=== PATIENT | female | born 1955 | race Caucasian/White ===

== ENCOUNTER 2017-03-23 11:33 | Emergency (ER) | payer MEDICARE, MEDICAID ==
[2017-03-23] MEDS: NS 0.9% 1000 ML* 2,000 ML IV ONE (13:13)
[2017-03-23 13:17] LABS: Hematocrit 43 % (35-47); Hemoglobin 14.4 g/dl (12.0-16.0); Mean Corpuscular HGB Conc 34 g/dl (31-36); Mean Corpuscular Hemoglobin 27 pg (27-31); Mean Corpuscular Volume 79 fL (80-97); Mean Platelet Volume 8 um3 (7.4-10.4); Red Blood Count 5.39 10^6/ul (4.0-5.4); Red Cell Distribution Width 14 % (10.5-15); White Blood Count 11.9 10^3/ul (3.5-10.8)
[2017-03-23 13:31] LABS: Albumin 4.1 g/dL (3.2-5.2); BUN/Creatinine Ratio 19.6 (8-20); C Reactive Protein 103.64 mg/L (< 5.00); Calcium 9.6 mg/dL (8.6-10.3); EGFR African American 70.9 (>60); EGFR Non-African American 55.1 (>60); Globulin 3.5 g/dL (2-4); Magnesium 1.9 mg/dL (1.9-2.7); Potassium 3.9 mmol/L (3.5-5.0); Total Bilirubin 0.6 mg/dL (0.2-1.0); Total Protein 7.6 g/dL (6.4-8.9)
--- NOTE | 2017-03-23 13:56 | RAD ---
Indication: Shortness of breath. 2 views of the chest including dual energy PA views demonstrate no mediastinal shift. Areas of normal size and configuration. Lung graham appear clear. When compared to previous exam of November 27, 2016 no significant change is noted. IMPRESSION: No active cardiopulmonary disease is noted.
[2017-03-23] MEDS ORDERED: Iohexol 350* (CONTRAST) 500 ML MDV IV ONE (13:58)
[2017-03-23] MEDS ORDERED: Iodixanol* (CONTRAST) 320 MG/ML 100 ML SDV IV ONE (14:00)
[2017-03-23 14:09] LABS: TSH (Thyroid Stimulating Horm) 1.05 mcIU/mL (0.34-5.60)
[2017-03-23 14:40] LABS: Urine Bilirubin Negative (Negative); Urine Glucose Negative (Negative); Urine Nitrite Negative (Negative)
--- NOTE | 2017-03-23 14:44 | RAD ---
Indication: Tachycardia, positive d-dimer. Contrast: Administered 96.4 ml of VISIPAQUE 320 mg/ml CTA of the chest was performed after IV contrast administration. Coronal and sagittal reconstructed images were obtained. The pulmonary arterial tree is well opacified. There are no filling defects present to suggest pulmonary embolus. The aorta demonstrates no evidence of aortic dissection. No aneurysmal dilatation of the aorta is noted. The inferior thyroid lobes demonstrates asymmetry of the thyroid gland with large left lobe. No definite mediastinal or hilar adenopathy is noted. Heart is of normal size without evidence of pericardial effusion. The trachea and major bronchi appear patent. The lung graham demonstrate no evidence of any focal nodules. No alveolar consolidation is noted. The visualized abdominal organs demonstrates a left adrenal mass which is low density measuring up to 3.0 cm. This is unchanged from 2014. This likely represents an adenoma. There is likely hepatic steatosis noted. IMPRESSION: NO DEFINITE EVIDENCE OF PULMONARY EMBOLI IS NOTED. NO PULMONARY NODULES ARE NOTED. LEFT ADRENAL MASS MEASURING UP TO 3.0 CM. 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
[2017-03-23 17:14] VITALS: BP 155/78
[2017-03-23] MEDS ORDERED: Amoxicillin/Clavulanate TAB* 875 MG PO ONE ×2 (17:16)
[2017-03-23] MEDS ORDERED: predniSONE TAB* 20 MG PO ONE (17:17)
--- NOTE | 2017-03-23 17:21 | ED ---
Nacho Pittman Billy, scribed for Lance Reed MD on 03/23/17 at 1247 . Influenza-Like Illness - HPI Summary HPI Summary: Patient is a 61 year-old female coming to [facility] for evaluation of right-sided earache, fatigue, and intermittent rapid palpitations for the last several days. She also reports shortness of breath with exertion. Denies any chest pain , calf pain/swelling, or wheezing. Denies any past medical history or family history of blood clots. Denies tobacco use or hormonal control use. - History of Current Complaint Chief Complaint: EDFluSymptoms Time Seen by Provider: 03/23/17 12:23 Hx Obtained From: Patient Onset/Duration: Gradual Onset, Lasting Days Severity: Moderate - Allergy/Home Medications Allergies/Adverse Reactions: Allergies Allergy/AdvReac Type Severity Reaction Status Date / Time Pregabalin [From Lyrica] Allergy syncope Verified 03/23/17 11:42 Propoxyphene Allergy itchiness Verified 03/23/17 11:42 [From Darvocet-N] PMH/Surg Hx/FS Hx/Imm Hx Endocrine/Hematology History: Reports: Hx Thyroid Disease, Other Endocrine/ Hematological Disorders - thalassemia Denies: Hx Diabetes Cardiovascular History: Reports: Hx Hypertension Denies: Hx Pacemaker/ICD Respiratory History: Reports: Hx Asthma History: Denies: Hx Renal Disease Sensory History: Denies: Hx Hearing Aid Psychiatric History: Denies: Hx Panic Disorder - Surgical History Surgery Procedure, Year, and Place: Infectious Disease History: No Infectious Disease History: Denies: Hx Clostridium Difficile, Hx Hepatitis, Hx Human Immunodeficiency Virus (HIV), Hx of Known/Suspected MRSA, Hx Shingles, Hx Tuberculosis, Traveled Outside the [place] in Last 30 Days - Social History Alcohol Use: None Substance Use Type: Reports: None, Prescribed Smoking Status (MU): Never Smoked Tobacco Review of Systems Positive: Fatigue. Negative: Fever Positive: Ear Ache. Negative: Nasal Discharge Positive: Palpitations. Negative: Chest Pain Positive: Shortness Of Breath Negative: Myalgia, Edema All Other Systems Reviewed And Are Negative: Yes Physical Exam Triage Information Reviewed: Yes Vital Signs On Initial Exam: Initial Vitals Temp Pulse Resp BP Pulse Ox 98.6 F 114 20 149/76 97 03/23/17 11:42 03/23/17 11:42 03/23/17 11:42 03/23/17 11:42 03/23/17 11:42 Vital Signs Reviewed: Yes Appearance: Positive: No Pain Distress, Ill-Appearing - Mild Skin: Positive: Warm, Skin Color Reflects Adequate Perfusion, Dry Head/Face: Positive: Normal Head/Face Inspection Eyes: Positive: EOMI, JOSE ENT: Positive: Other - Right ear canal with cerumen and drainage; she is tender with traction of the pinna and periauricular palpation. Neck: Positive: Supple, Nontender Respiratory/Lung Sounds: Positive: Clear to Auscultation, Breath Sounds Present Cardiovascular: Positive: Tachycardia Abdomen Description: Positive: Nontender, Soft Bowel Sounds: Positive: Present Musculoskeletal: Positive: Normal, Strength/ROM Intact, Other - Calves are soft and nontender.. Negative: Edema Left, Edema Right Neurological: Positive: Normal, Sensory/Motor Intact, Alert, Oriented to Person Place, Time Psychiatric: Positive: Affect/Mood Appropriate - Gibson Coma Scale Coma Scale Total: 15 Diagnostics - Vital Signs Vital Signs Temp Pulse Resp BP Pulse Ox 03/23/17 12:00 111 114/100 92 03/23/17 11:58 112 92 03/23/17 11:55 136/89 03/23/17 11:43 98.6 F 114 20 149/76 97 03/23/17 11:42 98.6 F 114 20 149/76 97 - Laboratory Lab Results: Lab Results 03/23/17 03/23/17 03/23/17 Range/Units 12:37 13:02 13:02 WBC 11.9 H (3.5-10.8) 10^3/ul RBC 5.39 (4.0-5.4) 10^6/ul Hgb 14.4 (12.0-16.0) g/dl Hct 43 (35-47) % MCV 79 L (80-97) fL MCH 27 (27-31) pg MCHC 34 (31-36) g/dl RDW 14 (10.5-15) % Plt Count 277 (150-450) 10^3/ul MPV 8 (7.4-10.4) um3 Neut % (Auto) 76.3 (38-83) % Lymph % (Auto) 17.0 L (25-47) % Duchesne % (Auto) 5.6 (1-9) % Eos % (Auto) 0.3 (0-6) % Baso % (Auto) 0.8 (0-2) % Absolute Neuts (auto) 9.1 H (1.5-7.7) 10^3/ul Absolute Lymphs (auto) 2.0 (1.0-4.8) 10^3/ul Absolute Monos (auto) 0.7 (0-0.8) 10^3/ul Absolute Eos (auto) 0 (0-0.6) 10^3/ul Absolute Basos (auto) 0.1 (0-0.2) 10^3/ul Absolute Nucleated RBC 0.01 10^3/ul Nucleated RBC % 0.1 INR (Anticoag Therapy) 0.97 (0.89-1.11) APTT 24.0 L (26.0-36.3) seconds D-Dimer, Quantitative > 1050 H (Less Than 230) ng/mL Sodium (133-145) mmol/L Potassium (3.5-5.0) mmol/L Chloride (101-111) mmol/L Carbon Dioxide (22-32) mmol/L Anion Gap (2-11) mmol/L BUN (6-24) mg/dL Creatinine (0.51-0.95) mg/dL Est GFR ( Amer) (>60) Est GFR (Non-Af Amer) (>60) BUN/Creatinine Ratio (8-20) Glucose (70-100) mg/dL Lactic Acid (0.5-2.0) mmol/L Calcium (8.6-10.3) mg/dL Magnesium (1.9-2.7) mg/dL Total Bilirubin (0.2-1.0) mg/dL AST (13-39) U/L ALT (7-52) U/L Alkaline Phosphatase (34-104) U/L Total Creatine Kinase (10-223) U/L CK-MB (CK-2) (0.6-6.3) ng/mL Troponin I (<0.04) ng/mL C-Reactive Protein (< 5.00) mg/L B-Natriuretic Peptide ( - 100) pg/mL Total Protein (6.4-8.9) g/dL Albumin (3.2-5.2) g/dL Globulin (2-4) g/dL Albumin/Globulin Ratio (1-3) Lipase (11.0-82.0) U/L TSH (0.34-5.60) mcIU/mL Urine Color Urine Appearance Urine pH (5-9) Ur Specific Chandler (1.010-1.030) Urine Protein (Negative) Urine Ketones (Negative) Urine Blood (Negative) Urine Nitrate (Negative) Urine Bilirubin (Negative) Urine Urobilinogen (Negative) Ur Leukocyte Esterase (Negative) Urine Glucose (Negative) Influenza A (Rapid) Negative (Negative) Influenza B (Rapid) Negative (Negative) Group A Strep Rapid (Negative) 03/23/17 03/23/17 03/23/17 Range/Units 13:02 13:02 13:02 WBC (3.5-10.8) 10^3/ul RBC (4.0-5.4) 10^6/ul Hgb (12.0-16.0) g/dl Hct (35-47) % MCV (80-97) fL MCH (27-31) pg MCHC (31-36) g/dl RDW (10.5-15) % Plt Count (150-450) 10^3/ul MPV (7.4-10.4) um3 Neut % (Auto) (38-83) % Lymph % (Auto) (25-47) % Duchesne % (Auto) (1-9) % Eos % (Auto) (0-6) % Baso % (Auto) (0-2) % Absolute Neuts (auto) (1.5-7.7) 10^3/ul Absolute Lymphs (auto) (1.0-4.8) 10^3/ul Absolute Monos (auto) (0-0.8) 10^3/ul Absolute Eos (auto) (0-0.6) 10^3/ul Absolute Basos (auto) (0-0.2) 10^3/ul Absolute Nucleated RBC 10^3/ul Nucleated RBC % INR (Anticoag Therapy) (0.89-1.11) APTT (26.0-36.3) seconds D-Dimer, Quantitative (Less Than 230) ng/mL Sodium 135 (133-145) mmol/L Potassium 3.9 (3.5-5.0) mmol/L Chloride 98 L (101-111) mmol/L Carbon Dioxide 27 (22-32) mmol/L Anion Gap 10 (2-11) mmol/L BUN 20 (6-24) mg/dL Creatinine 1.02 H (0.51-0.95) mg/dL Est GFR ( Amer) 70.9 (>60) Est GFR (Non-Af Amer) 55.1 (>60) BUN/Creatinine Ratio 19.6 (8-20) Glucose 212 H (70-100) mg/dL Lactic Acid 2.0 (0.5-2.0) mmol/L Calcium 9.6 (8.6-10.3) mg/dL Magnesium 1.9 (1.9-2.7) mg/dL Total Bilirubin 0.60 (0.2-1.0) mg/dL AST 15 (13-39) U/L ALT 18 (7-52) U/L Alkaline Phosphatase 82 (34-104) U/L Total Creatine Kinase 52 (10-223) U/L CK-MB (CK-2) 0.8 (0.6-6.3) ng/mL Troponin I 0.00 (<0.04) ng/mL C-Reactive Protein 103.64 H (< 5.00) mg/L B-Natriuretic Peptide 26 ( - 100) pg/mL Total Protein 7.6 (6.4-8.9) g/dL Albumin 4.1 (3.2-5.2) g/dL Globulin 3.5 (2-4) g/dL Albumin/Globulin Ratio 1.2 (1-3) Lipase 30 (11.0-82.0) U/L TSH 1.05 (0.34-5.60) mcIU/mL Urine Color Urine Appearance Urine pH (5-9) Ur Specific Chandler (1.010-1.030) Urine Protein (Negative) Urine Ketones (Negative) Urine Blood (Negative) Urine Nitrate (Negative) Urine Bilirubin (Negative) Urine Urobilinogen (Negative) Ur Leukocyte Esterase (Negative) Urine Glucose (Negative) Influenza A (Rapid) (Negative) Influenza B (Rapid) (Negative) Group A Strep Rapid (Negative) 03/23/17 03/23/17 Range/Units 14:30 16:04 WBC (3.5-10.8) 10^3/ul RBC (4.0-5.4) 10^6/ul Hgb (12.0-16.0) g/dl Hct (35-47) % MCV (80-97) fL MCH (27-31) pg MCHC (31-36) g/dl RDW (10.5-15) % Plt Count (150-450) 10^3/ul MPV (7.4-10.4) um3 Neut % (Auto) (38-83) % Lymph % (Auto) (25-47) % Duchesne % (Auto) (1-9) % Eos % (Auto) (0-6) % Baso % (Auto) (0-2) % Absolute Neuts (auto) (1.5-7.7) 10^3/ul Absolute Lymphs (auto) (1.0-4.8) 10^3/ul Absolute Monos (auto) (0-0.8) 10^3/ul Absolute Eos (auto) (0-0.6) 10^3/ul Absolute Basos (auto) (0-0.2) 10^3/ul Absolute Nucleated RBC 10^3/ul Nucleated RBC % INR (Anticoag Therapy) (0.89-1.11) APTT (26.0-36.3) seconds D-Dimer, Quantitative (Less Than 230) ng/mL Sodium (133-145) mmol/L Potassium (3.5-5.0) mmol/L Chloride (101-111) mmol/L Carbon Dioxide (22-32) mmol/L Anion Gap (2-11) mmol/L BUN (6-24) mg/dL Creatinine (0.51-0.95) mg/dL Est GFR ( Amer) (>60) Est GFR (Non-Af Amer) (>60) BUN/Creatinine Ratio (8-20) Glucose (70-100) mg/dL Lactic Acid (0.5-2.0) mmol/L Calcium (8.6-10.3) mg/dL Magnesium (1.9-2.7) mg/dL Total Bilirubin (0.2-1.0) mg/dL AST (13-39) U/L ALT (7-52) U/L Alkaline Phosphatase (34-104) U/L Total Creatine Kinase (10-223) U/L CK-MB (CK-2) (0.6-6.3) ng/mL Troponin I (<0.04) ng/mL C-Reactive Protein (< 5.00) mg/L B-Natriuretic Peptide ( - 100) pg/mL Total Protein (6.4-8.9) g/dL Albumin (3.2-5.2) g/dL Globulin (2-4) g/dL Albumin/Globulin Ratio (1-3) Lipase (11.0-82.0) U/L TSH (0.34-5.60) mcIU/mL Urine Color Yellow Urine Appearance Clear Urine pH 5.0 (5-9) Ur Specific Chandler 1.041 H (1.010-1.030) Urine Protein Negative (Negative) Urine Ketones Negative (Negative) Urine Blood Negative (Negative) Urine Nitrate Negative (Negative) Urine Bilirubin Negative (Negative) Urine Urobilinogen Negative (Negative) Ur Leukocyte Esterase Negative (Negative) Urine Glucose Negative (Negative) Influenza A (Rapid) (Negative) Influenza B (Rapid) (Negative) Group A Strep Rapid Negative (Negative) Result Diagrams: 03/23/17 13:02 03/23/17 13:02 Lab Statement: Any lab studies that have been ordered have been reviewed, and results considered in the medical decision making process. - Radiology CXR Xray Interpretation: No Acute Changes Radiology Interpretation Completed By: Radiologist - CT CTA chest/thorax CT Interpretation Completed By: Radiologist - NO DEFINITE EVIDENCE OF PULMONARY EMBOLI IS NOTED. NO PULMONARY NODULES ARE NOTED. LEFT ADRENAL MASS MEASURING UP TO 3.0 CM. 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 - EKG 1340 Cardiac Rate: Tachycardia - 100 bpm EKG Rhythm: Sinus Tachycardia ST Segment: Normal Ectopy: None Re-Evaluation - Re-Evaluation First Eval Re-Evaluation Time: 17:07 Comment: Labs reviewed. Flu Symptom Course/Dx - Course Course Of Treatment: NO CRITICAL CARE TIME Assessment/Plan: DISCUSSED RESULTS WITH PATIENT. NO PEDAL EDEMA/CALF TENDERNESS. DISCHARGE HOME STABLE. - Diagnoses Provider Diagnoses: External otitis of right ear, Asthma Discharge - Discharge Plan Condition: Stable Disposition: HOME Prescriptions: Amoxicillin/Clavulanate TAB* [Augmentin TAB 875*] 875 mg PO BID #18 tab predniSONE TAB* [Deltasone TAB*] 40 mg PO DAILY #8 tab Patient Education Materials: Otitis Externa (ED), Asthma (ED) Referrals: Brendan Yin MD [Primary Care Provider] - Additional Instructions: FOLLOW UP WITH YOUR DOCTOR. RETURN TO THE EMERGENCY DEPARTMENT FOR ANY WORSENING OF YOUR CONDITION; SHORTNESS OF BREATH, YOU FEEL ILL OR QUESTIONS OR CONCERNS. The documentation as recorded by the Nacho molina Billy accurately reflects the service I personally performed and the decisions made by me, Lance Reed MD.
[2017-03-23] MEDS ORDERED: Neomyc/Polym/HC 1% OTIC SUSP* **OTIC RIGHT EAR SCH (21:00)
== END 2017-03-23 17:36 | disposition home or self-care (01) ==
LOC: ED 11:33
DX: H60.91 Unspecified otitis externa, right ear (principal); J45.909 Unspecified asthma, uncomplicated; I10 Essential (primary) hypertension; D56.9 Thalassemia, unspecified
CPT/HCPCS: 36415; 71020; 71275; 80053; 81003; 82550; 82553; 83605; 83690; 83735; 83880; 84443; 84484; 85025; 85379; 85610; 85730; 86140; 87502; 87651; 96360; 99283; A9270-GY; J7512; Q9967

== ENCOUNTER 2017-07-30 19:39 | Inpatient (IN) | payer MEDICARE, MEDICAID ==
[2017-07-30] MEDS ORDERED: Aspirin Low Dose CHEW TAB* 81 MG PO ONE (20:18)
[2017-07-30 20:50] LABS: Hematocrit 42 % (35-47); Hemoglobin 14.4 g/dl (12.0-16.0); Mean Corpuscular HGB Conc 34 g/dl (31-36); Mean Corpuscular Hemoglobin 27 pg (27-31); Mean Corpuscular Volume 79 fL (80-97); Mean Platelet Volume 8 um3 (7.4-10.4); Red Blood Count 5.31 10^6/ul (4.0-5.4); Red Cell Distribution Width 15 % (10.5-15); White Blood Count 10.4 10^3/ul (3.5-10.8)
[2017-07-30 21:08] LABS: Albumin 4.2 g/dL (3.2-5.2); BUN/Creatinine Ratio 15.8 (8-20); Calcium 10.1 mg/dL (8.6-10.3); EGFR African American 62.1 (>60); EGFR Non-African American 48.3 (>60); Globulin 3.2 g/dL (2-4); Magnesium 1.8 mg/dL (1.9-2.7); Potassium 3.8 mmol/L (3.5-5.0); Total Bilirubin 0.6 mg/dL (0.2-1.0); Total Protein 7.4 g/dL (6.4-8.9)
--- NOTE | 2017-07-30 21:11 | RAD ---
Indication: Chest pain. Single frontal view of the chest performed at 2025 hours was reviewed. Comparison is made with previous exam dated March 23, 2017. No mediastinal shift is noted. Heart is of normal size and configuration. Lung graham appear clear. IMPRESSION: NO ACTIVE CARDIOPULMONARY DISEASE IS NOTED.
[2017-07-30] MEDS ORDERED: Ondansetron INJ* 2 MG/ML VIAL IV ONE (22:17)
[2017-07-30] MEDS ORDERED: Dextrose 50% Syringe 50 ML* 25 GM/50 ML SYRINGE IV PUSH PRN (23:27)
--- NOTE | 2017-07-30 23:35 | ED ---
Alma Pittman Rebecca, scribed for Robert Urrutia on 07/30/17 at 202 . HPI Chest Pain - HPI Summary HPI Summary: Pt is a 62 y/o F who presents to ED c/o CP. Pain began at 1800 today and is currently severe, ranked 10/10 and radiates to the back. Sx aggravated by ambulation, alleviated by nothing. Additionally c/o mild abdominal pain, N/V and SOB. Reports a recent increase in stress. Failed stress test in 2011 and had a negative cardiac catheterization in the same year. FHx CAD. - History of Current Complaint Chief Complaint: EDChestPainROMI Time Seen by Provider: 07/30/17 20:03 Hx Obtained From: Patient Onset/Duration: Still Present Time of Onset: 18:00 Current Severity: Severe Pain Intensity: 10 Pain Scale Used: 0-10 Numeric Chest Pain Radiates: Yes Chest Pain Radiates To:: Back Aggravating Factor(s): Other: - Ambulation Alleviating Factor(s): Nothing Associated Signs and Symptoms: Positive: Shortness of Breath, Nausea, Abdominal Pain - mild, Vomiting - Allergy/Home Medications Allergies/Adverse Reactions: Allergies Allergy/AdvReac Type Severity Reaction Status Date / Time Pregabalin [From Lyrica] Allergy syncope Verified 03/23/17 11:42 Propoxyphene Allergy itchiness Verified 03/23/17 11:42 [From Darvocet-N] PMH/Surg Hx/FS Hx/Imm Hx Endocrine/Hematology History: Reports: Hx Thyroid Disease, Other Endocrine/ Hematological Disorders - thalassemia Denies: Hx Diabetes Cardiovascular History: Reports: Hx Hypertension Denies: Hx Pacemaker/ICD Respiratory History: Reports: Hx Asthma History: Denies: Hx Renal Disease Sensory History: Denies: Hx Hearing Aid Psychiatric History: Denies: Hx Panic Disorder - Surgical History Surgery Procedure, Year, and Place: Infectious Disease History: No Infectious Disease History: Denies: Hx Clostridium Difficile, Hx Hepatitis, Hx Human Immunodeficiency Virus (HIV), Hx of Known/Suspected MRSA, Hx Shingles, Hx Tuberculosis, Traveled Outside the [place] in Last 30 Days - Family History Known Family History: Positive: Cardiac Disease - Social History Alcohol Use: None Substance Use Type: Reports: None, Prescribed Smoking Status (MU): Never Smoked Tobacco Review of Systems Positive: Chest Pain Positive: Shortness Of Breath Positive: Abdominal Pain - mild, Vomiting, Nausea All Other Systems Reviewed And Are Negative: Yes Physical Exam - Summary Physical Exam Summary: Appearance: Well appearing, no pain distress Skin: warm, dry, reflects adequate perfusion Head/face: normal Eyes: EOMI, JOSE ENT: normal Neck: supple, nontender Respiratory: CTA, breath sounds present Cardiovascular: RRR, pulses symmetrical Abdomen: nontender, soft Bowel: present Musculoskeletal: normal, strength/ROM intact Neuro: normal, sensory motor intact, A&Ox3 Triage Information Reviewed: Yes Vital Signs On Initial Exam: Initial Vitals Temp Pulse Resp BP Pulse Ox 98 F 82 21 158/108 95 07/30/17 19:58 07/30/17 19:58 07/30/17 19:58 07/30/17 19:58 07/30/17 19:58 Vital Signs Reviewed: Yes - Gibson Coma Scale Coma Scale Total: 15 Diagnostics - Vital Signs Vital Signs Temp Pulse Resp BP Pulse Ox 07/30/17 19:58 98 F 82 21 158/108 95 - Laboratory Result Diagrams: 07/30/17 20:43 07/30/17 20:43 Lab Statement: Any lab studies that have been ordered have been reviewed, and results considered in the medical decision making process. - Radiology CXR Xray Interpretation: No Acute Changes - NO ACTIVE CARDIOPULMONARY DISEASE IS NOTED. ED physician reviewed this radiology report and agrees. Radiology Interpretation Completed By: Radiologist - EKG 1946 Cardiac Rate: NL - bpm EKG Rhythm: Sinus Rhythm EKG Interpretation: No acute changes Chest Pain Course/Dx - Course Assessment/Plan: Pt is a 62 y/o F who presents to ED c/o CP. Pain began at 1800 today and is currently severe, ranked 10/10 and radiates to the back. Sx aggravated by ambulation, alleviated by nothing. Additionally c/o mild abdominal pain, N/V and SOB. Reports a recent increase in stress. Failed stress test in 2011 and had a negative cardiac catheterization in the same year. FHx CAD. CXR has no acute pathology. EKG is sinus rhythm with no acute changes. Troponin of 0.00. In the ED course, pt received ASA and Zofran. Discussed care of pt with Dr. Tan who acccepts pt for admission. She will be admitted with Dx of chest pain, r/o IL. She understands and agrees. Elevated BP noted and advised to f/u with PCP. - Diagnoses Provider Diagnoses: Chest pain, rule out acute myocardial infarction - Provider Notifications Discussed Care Of Patient With: Hector Tan Time Discussed With Above Provider: 22:12 Instructed by Provider To: Other - Accepts pt for admission Discharge - Discharge Plan Condition: Stable Disposition: ADMITTED TO [facility] The documentation as recorded by the Alma molina Rebecca accurately reflects the service I personally performed and the decisions made by , Robert Urrutia.
[2017-07-31] MEDS: Insulin LISPRO* 1 UNITS UNIT SUBCUT SCH ×4 (01:57→19:41)
--- NOTE | 2017-07-31 02:07 | HP ---
CC: Dr. Yin * HISTORY AND PHYSICAL: DATE OF ADMISSION: 07/30/17 CHIEF COMPLAINT: Chest, abdominal, and back pain. HISTORY OF PRESENT ILLNESS: The patient is a 62-year-old woman who presents to [facility] with a chief complaint at about 6 p.m. today after she got home and was not exerting herself, she suddenly developed pain in her chest , abdomen, and her back. The patient states again it was right-sided chest pain and it went down to her stomach and her back. She feels her chest is much better now, back still hurts somewhat as does her abdomen. It was 10/10 in severity. She got medicine for upset stomach, but she does not know what it was , which seemed to help her. She had some nausea, vomiting, but no shortness of breath, some questionable sweatiness or clamminess. She states it is a sharp pain. She usually takes a hot shower and it gets better, but she did not have that at this time. She has no black or tarry stools. When she vomited, she does have some clear liquid come up. Again, she currently feels significantly improved. She had a cardiac catheterization back in 2011, which was apparently unremarkable. PAST MEDICAL HISTORY: Significant for diabetes mellitus, hypothyroidism, hypertension, hyperlipidemia. CURRENT MEDICATIONS: Include: 1. Metformin 500 mg twice daily. 2. Synthroid 100 mcg daily. 3. Lisinopril 20/25 one tablet daily. 4. Simvastatin 20 mg daily. 5. Multivitamin 1 tablet daily. 6. Vitamin D unknown dose daily. 7. Vitamin B12 unknown dose daily. ALLERGIES: She has an allergy/adverse reaction to PREGABALIN, PROPOXYPHENE. FAMILY HISTORY: Reviewed, noncontributory. SOCIAL HISTORY: No tobacco, alcohol, or recreational drug use. She is on disability. She is not . She has 4 children. No healthcare proxy. REVIEW OF SYSTEMS: A 14-point review of systems was completed with the patient. All pertinent positives and negatives are in the history of present illness, otherwise it is negative. PHYSICAL EXAMINATION GENERAL: A morbidly obese woman, sitting up in bed, in no acute distress. VITAL SIGNS: Blood pressure is 118/92, pulse ox 91%, respiratory rate 18 breaths per minute, heart rate 86 beats a minute, temperature 98 degrees. HEENT: Normocephalic and atraumatic. Pupils are equal, round, and reactive to light. Moist mucous membranes. NECK: Supple. No JVD, bruits, or palpable thyroid or lymphadenopathy. CHEST: Clear to auscultation and percussion bilaterally. CARDIOVASCULAR: S1, S2 appreciated. Regular rate and rhythm. ABDOMINAL EXAM: Morbidly obese, positive bowel sounds in all 4 quadrants. Soft , nontender, nondistended. No hepatosplenomegaly. EXTREMITIES: No cyanosis or clubbing. She does have some bilateral edema. NEURO: She is alert and oriented x3. Moves all extremities. SKIN: No rashes or abnormalities. DIAGNOSTIC STUDIES/LAB DATA: White count 10.4, hemoglobin 14.4, hematocrit 42 , platelets are 240. Sodium 137, potassium 3.8, chloride 99, CO2 29, BUN 18, creatinine 1.14, glucose is 182. INR is 0.89. D-dimer is 254. Her troponin was 0.00. EKG shows normal sinus rhythm, 85 beats per minute, she has got normal axis. She has got Q in lead III, no ST or T-wave changes. Chest x-ray shows no active cardiopulmonary disease is noted. ASSESSMENT AND PLAN: 1. Chest pain, abdominal pain, back pain. It is a strange constellation of findings. It is also reproducible on exam when I pressed on it. I hardly think this is cardiac. The patient already feels improved. I will cycle her troponins. I will get a nuclear stress test for the morning, but I think it is likely the patient can be discharged as early as tomorrow morning after the stress test. 2. Diabetes mellitus. Continue fingersticks with sliding scale insulin, check hemoglobin A1c. 3. Hyperlipidemia, continue statin, check lipid level in the morning. 4. Hypothyroidism, stable, continue Synthroid. 5. Morbid obesity. Encouraged weight loss. 6. DVT prophylaxis. Heparin subcu. 7. FEN. NPO after midnight. 8. The patient is full code. TIME SPENT: Over 75 minutes were spent on this H and P, more than 40 minutes of which was spent in direct [id number] contact with the patient in evaluation , physical exam, and counseling and coordination of care. [id number]/[facility] #: [id number] MTDD
[2017-07-31 03:47] LABS: HDL Cholesterol 42.1 mg/dL
[2017-07-31] MEDS: Heparin VIAL(*) 5000 UNITS/ML VIAL (FIVE THOUSAND) SUBCUT SCH ×2 (06:16→15:52)
[2017-07-31] MEDS: Omeprazole CAP* 20 MG PO SCH (06:16)
[2017-07-31] MEDS: Levothyroxine TAB* 100 MCG TAB PO SCH (06:17)
[2017-07-31] MEDS ORDERED: Regadenoson* 0.4 MG/5 ML SYRINGE ONE (08:25)
[2017-07-31] MEDS ORDERED: Aminophylline IV* 25 MG/ML 10 ML VIAL ONE (08:25)
[2017-07-31] MEDS ORDERED: Acetaminophen TAB* 325 MG ONE (09:28)
[2017-07-31] MEDS ORDERED: Ondansetron INJ* 2 MG/ML VIAL ONE ×2 (09:28→12:38)
[2017-07-31] MEDS: Ondansetron INJ* 2 MG/ML VIAL IV PRN (09:32)
[2017-07-31] MEDS: Acetaminophen TAB* 325 MG PO PRN ×2 (09:32→20:04)
[2017-07-31] MEDS: Lisinopril TAB* 10 MG PO SCH (13:45)
[2017-07-31] MEDS: Hydrochlorothiazide TAB* 25 MG PO SCH (13:45)
[2017-07-31] MEDS: Multivitamins/Minerals TAB PO SCH ×2 (13:46)
--- NOTE | 2017-07-31 13:59 | RAD ---
HISTORY: Chest pain, cardiac catheterization, diabetes, hypertension, hyperlipidemia COMPARISONS: June 28, 2012 TECHNIQUE: A 1 day stress/rest myocardial perfusion study was performed, with pharmacologic stress. The stress portion was monitored by Dr. Barriga. Gated SPECT imaging was performed, without CT-based attenuation correction DOSE: Stress: Technetium 99m tetrofosmin, 25.39 millicuries, injected at 12:29 PM on July 31, 2017 Rest: Technetium 99m tetrofosmin, 10.4 millicuries, injected at 9:40 AM on July 31, 2017 Pharmacologic agent: Lexiscan FINDINGS: CARDIAC MONITORING: No EKG changes of ischemia with stress EF: 70 % TID: 0.96 MOTION: Normal motion, with normal wall thickening. PERFUSION: There is a small to moderate partially reversible defect of the distal anterior wall. OTHER: None IMPRESSION: SMALL TO MODERATE PARTIALLY REVERSIBLE DEFECT OF THE DISTAL ANTERIOR WALL ASSESSMENT: INTERMEDIATE RISK. Based on imaging criteria from ACC/AHA 2002. Guideline Update for the Management of Patient's with Chronic Stable Angina, table 23. Noninvasive Risk Stratification.
[2017-07-31] MEDS ORDERED: NS 0.9% 500 ML BAG* 500 ML IV ONE (15:55)
--- NOTE | 2017-07-31 15:57 | PN ---
Subjective Date of Service: 07/31/17 Interval History: Patient seen after NST. Reports chest, abdomen and back pain resolved. Still feeling very nauseous, had emesis prior to stress test. Reports having a very stressful day yesterday when all her symptoms began. Family History: Unchanged from Admission Social History: Unchanged from Admission Past Medical History: Unchanged from Admission Objective Active Medications: Acetaminophen (Tylenol Tab*) 650 mg PO Q6H PRN Aspirin (Aspirin Ec Low Dose*) 81 mg PO DAILY SUSAN Atorvastatin Calcium (Lipitor*) 10 mg PO BEDTIME SUSAN Dextrose (D50w Syringe 50 Ml*) 12.5 gm IV PUSH .FOR FS < 60 - SS PRN Heparin Sodium (Porcine) (Heparin Vial(*)) 5,000 units SUBCUT Q8HR SUSAN Hydrochlorothiazide (Hydrodiuril Tab*) 25 mg PO DAILY SUSAN Insulin Human Lispro (Humalog*) 0 units SUBCUT Q6HR SUSAN Levothyroxine Sodium (Synthroid Tab*) 100 mcg PO DAILY@0600 SUSAN Lisinopril (Prinivil Tab*) 20 mg PO DAILY SUSAN Multivitamins/Minerals (Theragran/Minerals Tab*) 1 tab PO DAILY SUSAN Omeprazole (Prilosec Cap*) 20 mg PO 0600 SUSAN Ondansetron HCl (Zofran Inj*) 4 mg IV Q6H PRN Vital Signs 07/31/17 07/31/17 07/31/17 00:00 00:12 00:55 Temperature 99.3 F Pulse Rate 86 84 82 Respiratory 25 22 18 Rate Blood Pressure 156/86 143/84 (mmHg) O2 Sat by Pulse 92 91 100 Oximetry 07/31/17 07/31/17 07/31/17 00:59 03:50 08:00 Temperature 99.3 F 99.8 F Pulse Rate 82 100 Respiratory 18 20 20 Rate Blood Pressure 143/84 128/72 (mmHg) O2 Sat by Pulse 100 94 Oximetry 07/31/17 07/31/17 08:07 13:34 Temperature 99.3 F 97.9 F Pulse Rate 90 84 Respiratory 20 18 Rate Blood Pressure 130/73 107/66 (mmHg) O2 Sat by Pulse 96 95 Oximetry Oxygen Devices in Use Now: None Appearance: Middle-aged, obese, F, laying in bed in NAD Eyes: No Scleral Icterus Ears/Nose/Mouth/Throat: Mucous Membranes Moist Neck: NL Appearance and Movements; NL JVP Respiratory: Symmetrical Chest Expansion and Respiratory Effort, Clear to Auscultation Cardiovascular: NL Sounds; No Murmurs; No JVD, RRR Abdominal: - - Obese, soft, non-distended, mild epigastric tenderness, BS+ Lymphatic: No Cervical Adenopathy Extremities: No Edema Skin: No Rash or Ulcers Neurological: Alert and Oriented x 3 Result Diagrams: 07/30/17 20:43 07/30/17 20:43 Assess/Plan/Problems-Billing Assessment: Chest pain, N/V, possible viral infection in a 62 yo F with hx of HTN, HLD, DM, morbid obesity - Patient Problems (1) Chest pain Current Visit: Yes Comment: back pain, abdominal pain. Resolved. Troponins negative. NST with what appears to be reversible area in anterior wall, on review had similar finding on prior NST with subsequent normal cath. Spoke with Dr. Gordon who compared the two studies and saw no new changes, felt this may be breast artifact. Unlikely to be cardiac cause. ASA and statin for primary prevention. (2) Nausea & vomiting Current Visit: Yes Comment: Possible gastroenteritis, ?stress-related. Continue anti-emetics. Will trial clear liquids. IVF. If unable to keep down liquids will continue to monitor overnight. (3) Diabetes Current Visit: Yes Comment: HISS (4) HTN (hypertension) Current Visit: Yes Comment: Continue home Lisinopril, HCTZ (5) HLD (hyperlipidemia) Current Visit: Yes Comment: Continue Atorvastatin (6) Hypothyroidism Current Visit: Yes Comment: Continue home synthroid (7) DVT prophylaxis Current Visit: Yes Comment: HSQ Status and Disposition: Will switch to inpatient if unable to keep down fluids or continues to have significant nausea
[2017-07-31] MEDS: Atorvastatin* 10 MG TAB PO SCH (20:04)
[2017-07-31] MEDS: NS 0.9% 1000 ML* 1,000 ML IV SCH (20:59)
[2017-08-01] MEDS: Heparin VIAL(*) 5000 UNITS/ML VIAL (FIVE THOUSAND) SUBCUT SCH ×4 (00:01→20:15)
[2017-08-01] MEDS: Insulin LISPRO* 1 UNITS UNIT SUBCUT SCH ×5 (00:54→23:40)
[2017-08-01] MEDS: Acetaminophen TAB* 325 MG PO PRN ×3 (00:58→20:14)
[2017-08-01] MEDS: Omeprazole CAP* 20 MG PO SCH (07:15)
[2017-08-01] MEDS: Levothyroxine TAB* 100 MCG TAB PO SCH (07:15)
[2017-08-01] MEDS ORDERED: Influenza VAC *QUAD* 2017-18* 0.5 ML SYRINGE IM ONE (09:00)
[2017-08-01] MEDS ORDERED: Pneumococcal *Vac Polyvalent 0.5 ML VIAL IM ONE (09:00)
[2017-08-01] MEDS: NS 0.9% 1000 ML* 1,000 ML IV SCH (09:02)
[2017-08-01] MEDS: Hydrochlorothiazide TAB* 25 MG PO SCH (09:08)
[2017-08-01] MEDS: Aspirin EC Low Dose* 81 MG TAB.EC PO SCH (09:08)
[2017-08-01] MEDS: Lisinopril TAB* 10 MG PO SCH (09:08)
[2017-08-01] MEDS: Multivitamins/Minerals TAB PO SCH (09:08)
--- NOTE | 2017-08-01 10:32 | PN ---
Subjective Date of Service: 08/01/17 Interval History: Patient seen this morning. Reportedly was doing well earlier this morning. Still with some nausea but no vomiting. Just prior to my arrival patient began to experience shaking chills, states this is the first time this has happened. Denies any pain, reports some SOB. Family History: Unchanged from Admission Social History: Unchanged from Admission Past Medical History: Unchanged from Admission Objective Active Medications: Acetaminophen (Tylenol Tab*) 650 mg PO Q4H PRN Aspirin (Aspirin Ec Low Dose*) 81 mg PO DAILY SUSAN Atorvastatin Calcium (Lipitor*) 10 mg PO BEDTIME SUSAN Dextrose (D50w Syringe 50 Ml*) 12.5 gm IV PUSH .FOR FS < 60 - SS PRN Heparin Sodium (Porcine) (Heparin Vial(*)) 5,000 units SUBCUT Q8HR SUSAN Hydrochlorothiazide (Hydrodiuril Tab*) 25 mg PO DAILY SUSAN Sodium Chloride (Ns 0.9% 1000 Ml*) 1,000 mls @ 100 mls/hr IV PER RATE SUSAN Insulin Human Lispro (Humalog*) 0 units SUBCUT Q6HR SUSAN Levothyroxine Sodium (Synthroid Tab*) 100 mcg PO DAILY@0600 SUSAN Lisinopril (Prinivil Tab*) 20 mg PO DAILY SUSAN Multivitamins/Minerals (Theragran/Minerals Tab*) 1 tab PO DAILY SUSAN Omeprazole (Prilosec Cap*) 20 mg PO 0600 SUSAN Ondansetron HCl (Zofran Inj*) 4 mg IV Q6H PRN Vital Signs 07/31/17 08/01/17 08/01/17 19:58 07:57 08:00 Temperature 99.3 F 98.5 F Pulse Rate 91 91 Respiratory 20 22 20 Rate Blood Pressure 145/86 129/74 (mmHg) O2 Sat by Pulse 94 97 Oximetry Oxygen Devices in Use Now: None Appearance: Middle-aged, F, laying in bed with rigors Eyes: No Scleral Icterus Ears/Nose/Mouth/Throat: Mucous Membranes Moist Neck: NL Appearance and Movements; NL JVP Respiratory: - - Mild tachypnea, lungs clear, no wheezing appreciated Cardiovascular: NL Sounds; No Murmurs; No JVD, RRR Abdominal: NL Sounds; No Tenderness; No Distention Lymphatic: No Cervical Adenopathy Extremities: No Edema Skin: - - Some mild mottling Neurological: Alert and Oriented x 3 Result Diagrams: 07/30/17 20:43 07/30/17 20:43 Assess/Plan/Problems-Billing Assessment: Chest pain, N/V, possible viral vs bacterial infection in a 62 yo F with hx of HTN, HLD, DM, morbid obesity - Patient Problems (1) Rigors Current Visit: Yes Comment: Just began this AM. Will get stat BCx, CBC, CMP, procalcitonin, flu swab. Repeat CXR. Tylenol for fever. UCx negative from admission, no dysuria. (2) Nausea & vomiting Current Visit: Yes Comment: Possibly some improvement overnight although seems exacerbated now. Continue IVF and prn anti-emetics. (3) Chest pain Current Visit: Yes Comment: back pain, abdominal pain. Resolved. Troponins negative. NST with what appears to be reversible area in anterior wall, on review had similar finding on prior NST with subsequent normal cath. Spoke with Dr. Gordon who compared the two studies and saw no new changes, felt this may be breast artifact. Unlikely to be cardiac cause. ASA and statin for primary prevention. (4) Diabetes Current Visit: Yes Comment: HISS (5) HTN (hypertension) Current Visit: Yes Comment: Continue home Lisinopril, HCTZ (6) HLD (hyperlipidemia) Current Visit: Yes Comment: Continue Atorvastatin (7) Hypothyroidism Current Visit: Yes Comment: Continue home synthroid (8) DVT prophylaxis Current Visit: Yes Comment: HSQ Status and Disposition: Inpatient for ongoing fevers, N/V
--- NOTE | 2017-08-01 10:59 | RAD ---
HISTORY: Fever, shortness of breath COMPARISONS: July 30, 2017 VIEWS: 1: frontal portable view of the chest at 10:40 AM FINDINGS: LINES AND TUBES: None. CARDIOMEDIASTINAL SILHOUETTE: The cardiomediastinal silhouette is normal for portable technique. PLEURA: The costophrenic angles are sharp. No pleural abnormalities are noted. LUNG PARENCHYMA: The lungs are clear. ABDOMEN: The upper abdomen is clear. There is no subphrenic gas. BONES AND SOFT TISSUES: No bone or soft tissue abnormalities are noted. IMPRESSION: NO ACTIVE CARDIOPULMONARY DISEASE.
[2017-08-01 12:23] LABS: Albumin 3.4 g/dL (3.2-5.2); BUN/Creatinine Ratio 13.1 (8-20); Calcium 8.8 mg/dL (8.6-10.3); EGFR African American 50.2 (>60); EGFR Non-African American 39.1 (>60); Potassium 3.3 mmol/L (3.5-5.0); Total Bilirubin 1.2 mg/dL (0.2-1.0); Total Protein 6.4 g/dL (6.4-8.9)
[2017-08-01 12:46] LABS: Hematocrit 37 % (35-47); Hemoglobin 12.5 g/dl (12.0-16.0); Mean Corpuscular HGB Conc 34 g/dl (31-36); Mean Corpuscular Hemoglobin 27 pg (27-31); Mean Corpuscular Volume 79 fL (80-97); Mean Platelet Volume 8 um3 (7.4-10.4); Red Cell Distribution Width 15 % (10.5-15); White Blood Count 11.2 10^3/ul (3.5-10.8)
[2017-08-01] MEDS ORDERED: NS 0.9% 1000 ML* 1,000 ML IV ONE (12:47)
[2017-08-01] MEDS ORDERED: NS 0.9% 1000 ML* 1,000 ML IV SCH (14:17)
--- NOTE | 2017-08-01 19:13 | RAD ---
Indication: Evaluate for intra-abdominal infection. CT of the abdomen and pelvis was performed after oral contrast administration. No IV contrast was administered. Coronal and sagittal reconstructed images were obtained. Lung bases demonstrate bibasilar atelectasis. No pleural fluid is noted. Heart demonstrates no pericardial effusion. The liver is enlarged. There is diffuse decrease in density consistent with hepatic steatosis. The gallbladder is distended with wall thickening and pericholecystic fluid noted. The possibility of acute cholecystitis should BE considered although no calcified gallstones are noted. Common duct is not dilated. The pancreas demonstrates no mass or pancreatic duct dilatation. The spleen is normal in size. Calcified granuloma is noted in the spleen. There is a left adrenal mass measuring 3.3 cm which is homogeneously low density. This may represent adenoma. This is unchanged from March 20, 2017. The kidneys otherwise demonstrate no hydronephrosis. Aorta and inferior vena cava are unremarkable. No dilated loops of bowel are noted. CT of the pelvis demonstrates no retroperitoneal or pelvic lymphadenopathy. No hernias are noted. The uterus and ovaries are unremarkable. Diverticulosis without definite evidence of diverticulitis is noted. No free fluid is identified. The uterus and ovaries are otherwise unremarkable. IMPRESSION: DILATED GALLBLADDER WITH GALLBLADDER WALL THICKENING AND PERICHOLECYSTIC FLUID SUGGESTIVE OF CHOLECYSTITIS ALTHOUGH NO CALCIFIED GALLSTONES ARE NOTED. THERE IS A LEFT ADRENAL MASS MEASURING UP TO 3.3 CM WHICH IS UNCHANGED FROM PREVIOUS EXAM. BIBASILAR ATELECTASIS IS NOTED. HEPATIC STEATOSIS IS NOTED.
[2017-08-01] MEDS ORDERED: Zosyn per Pharmacy* NOTE FOLLOW UP SCH (20:00)
[2017-08-01] MEDS: Atorvastatin* 10 MG TAB PO SCH (20:14)
[2017-08-02] MEDS: ZOSYN 3.375 GM Q8H per EXTENDED INFUSION IVPB SCH ×6 (00:55→17:25)
[2017-08-02] MEDS ORDERED: NS 0.9% 500 ML BAG* 500 ML IV ONE (01:46)
--- NOTE | 2017-08-02 02:15 | PN ---
Progress Note - Progress Note Date of Service: 08/02/17 Note: Called to see patient on CAT call. 10 minutes earlier nurse reported tachycardia , hypoxia 87% RA. Orders for O2 and NS bolus given. Now patient is sitting on edge of bed, moderate resp distress, can answer questions w/ 2-3 word answers. Appears pale, not diaphoretic. Denies chest or abdominal pain. Has nausea, known to have acute cholecystitis, just started on Zosyn tonight. FS 99, BP 127, HR 130, tachypneic, O2 sat varying from 76 to 99% on 10 L FM or high-flow NC. Lungs: clear Heart; tachy, regular EKG: sinus tachycardia, no ischemia CXR portable - pending A/P: acute resp distress, differential includes PE, Sepsis, panic, pulmonary edema. I doubt O2 sat is accurate. Checking ABG. Will transfer to ICU for observation. Will follow up CXR. May benefit from BiPap, vapotherm at minimum. CT chest not done, just had IV contrast earlier in evening. Will order V/Q scan. Treating sepsis w/ IV zosyn, fluid bolus, then infusion.
[2017-08-02 02:24] LABS: PCO2 Arterial 38 mmHg (35-45)
[2017-08-02] MEDS ORDERED: LORazepam INJ* 2 MG/ML 1 ML VIAL IV PUSH PRN (02:28)
[2017-08-02] MEDS ORDERED: Ciprofloxacin 400MG IVPREMIX(* 400 MG/200 ML BAG IVPB SCH (03:00)
[2017-08-02] MEDS ORDERED: Vancomycin per Pharmacy* NOTE FOLLOW UP PRN (03:02)
[2017-08-02] MEDS ORDERED: NS 0.9% 250 ML* 250 ML ONE (03:06)
[2017-08-02] MEDS: NS 0.9% w/ 20 Meq KCL 1000 ML* 1,000 ML IV SCH ×2 (03:12→16:02)
[2017-08-02] MEDS ORDERED: Vancomycin(*) 1,500 MG in NS 0.9% 250 ML* 250 ML IVPB ONE (04:00)
[2017-08-02] MEDS: Heparin VIAL(*) 5000 UNITS/ML VIAL (FIVE THOUSAND) SUBCUT SCH ×3 (05:10→21:08)
[2017-08-02] MEDS: Levothyroxine TAB* 100 MCG TAB PO SCH (05:11)
[2017-08-02] MEDS: Omeprazole CAP* 20 MG PO SCH (05:11)
[2017-08-02] MEDS: Insulin LISPRO* 1 UNITS UNIT SUBCUT SCH ×4 (05:29→23:58)
[2017-08-02 05:37] LABS: Hematocrit 35 % (35-47); Hemoglobin 11.6 g/dl (12.0-16.0); Mean Corpuscular HGB Conc 33 g/dl (31-36); Mean Corpuscular Hemoglobin 26 pg (27-31); Mean Corpuscular Volume 80 fL (80-97); Mean Platelet Volume 8 um3 (7.4-10.4); Red Blood Count 4.37 10^6/ul (4.0-5.4); Red Cell Distribution Width 15 % (10.5-15); White Blood Count 12.8 10^3/ul (3.5-10.8)
[2017-08-02 05:44] LABS: BUN/Creatinine Ratio 13.3 (8-20); Calcium 8.1 mg/dL (8.6-10.3); EGFR African American 47.8 (>60); EGFR Non-African American 37.2 (>60); Potassium 3.5 mmol/L (3.5-5.0)
[2017-08-02 06:44] LABS: Troponin I 0.01 ng/mL (<0.04)
--- NOTE | 2017-08-02 07:09 | RAD ---
INDICATION: Right upper quadrant pain and fever. COMPARISON: Comparison is made with a prior CT of the abdomen and pelvis from August 01, 2017. TECHNIQUE: Multiple real-time images of the right upper quadrant were obtained. FINDINGS: There are gallstones present. The gallbladder wall is thickened measuring up to 0.9 cm in thickness this. There is a trace amount of pericholecystic fluid and there was a positive sonographic Trevino sign present suggestive of with acute cholecystitis. No intra or extrahepatic ductal distention is present. The common bile duct measured 0.4 cm in diameter. The liver is mildly enlarged and increased in echogenicity which correlates with fatty infiltration noted on the prior CT study. The pancreas is partially obscured by overlying bowel gas. The right kidney is normal in size without evidence for hydronephrosis. IMPRESSION: 1. CHOLELITHIASIS AND FINDINGS SUGGESTIVE OF ACUTE CHOLECYSTITIS. 2. HEPATOMEGALY AND HEPATIC STEATOSIS.
--- NOTE | 2017-08-02 07:38 | RAD ---
INDICATION: Chest pain, shortness of breath. COMPARISON: Comparison is made with a prior study from August 01, 2017. TECHNIQUE: A portable view of the chest was obtained. FINDINGS: Cardiac and mediastinal contours appear to be within normal limits. The lungs are underinflated and clear. No pleural effusion is seen. IMPRESSION: NO EVIDENCE FOR ACUTE DISEASE.
--- NOTE | 2017-08-02 08:20 | PN ---
Subjective Date of Service: 08/02/17 Interval History: CT results last night showed evidence of cholecystitis. Started on IV Abx. Spoke with Surgery and as patient seemed stable, planned for evaluation in the morning. Overnight events noted. Patient developed rigors again, tachypnea, ?some hypoxia as well. Transferred to ICU. Patient seen this morning, weaned off O2, denies SOB. Says she feels much better , has appetite. Denies abdominal pain, nausea. Hesitant about the possibility of surgery. Family History: Unchanged from Admission Social History: Unchanged from Admission Past Medical History: Unchanged from Admission Objective Active Medications: Acetaminophen (Tylenol Tab*) 650 mg PO Q4H PRN Aspirin (Aspirin Ec Low Dose*) 81 mg PO DAILY SUSAN Atorvastatin Calcium (Lipitor*) 10 mg PO BEDTIME SUSAN Dextrose (D50w Syringe 50 Ml*) 12.5 gm IV PUSH .FOR FS < 60 - SS PRN Heparin Sodium (Porcine) (Heparin Vial(*)) 5,000 units SUBCUT Q8HR SUSAN Piperacillin Sod/Tazobactam (Sod 3.375 gm/ Sodium Chloride) 100 mls @ 25 mls/ hr IVPB Q8H SUSAN Potassium Chloride/Sodium Chloride (Ns 0.9% W/ 20 Meq Kcl 1000 Ml*) 1,000 mls @ 150 mls/hr IV PER RATE SUSAN Insulin Human Lispro (Humalog*) 0 units SUBCUT Q6HR SUSAN Levothyroxine Sodium (Synthroid Tab*) 100 mcg PO DAILY@0600 SUSAN Lorazepam (Ativan Inj*) 1 mg IV PUSH Q6H PRN Multivitamins/Minerals (Theragran/Minerals Tab*) 1 tab PO DAILY SUSAN Omeprazole (Prilosec Cap*) 20 mg PO 0600 SUSAN Ondansetron HCl (Zofran Inj*) 4 mg IV Q6H PRN Pharmacy Consult (Zosyn Per Pharmacy*) 1 note FOLLOW UP .ZOSYN PER PHARMACY SUSAN Vital Signs 08/01/17 08/01/17 08/01/17 10:38 11:19 13:23 Temperature 104 F 100.2 F 99.2 F Pulse Rate 127 128 108 Respiratory 40 18 18 Rate Blood Pressure 127/79 103/60 90/51 (mmHg) O2 Sat by Pulse 94 86 94 Oximetry 08/01/17 08/01/17 08/01/17 13:52 15:47 20:10 Temperature 99.6 F 99.1 F Pulse Rate 102 102 88 Respiratory 22 20 Rate Blood Pressure 111/58 92/53 (mmHg) O2 Sat by Pulse 91 95 94 Oximetry 08/01/17 08/02/17 08/02/17 20:21 00:02 01:48 Temperature 98.4 F 98 F Pulse Rate 71 135 Respiratory 20 24 28 Rate Blood Pressure 90/50 118/76 (mmHg) O2 Sat by Pulse 97 88 Oximetry 08/02/17 04:08 Temperature 97.9 F Pulse Rate Respiratory Rate Blood Pressure (mmHg) O2 Sat by Pulse Oximetry Oxygen Devices in Use Now: None Appearance: Middle-aged, obese, F, laying in bed in NAD Eyes: No Scleral Icterus Ears/Nose/Mouth/Throat: - - Dry MM Neck: NL Appearance and Movements; NL JVP Respiratory: Symmetrical Chest Expansion and Respiratory Effort, - - Trace rales in B/L bases, otherwise clear Cardiovascular: NL Sounds; No Murmurs; No JVD, RRR Abdominal: - - Obese, soft, non-distended, TTP in RUQ, no rebound/guarding Lymphatic: No Cervical Adenopathy Extremities: No Edema Skin: No Rash or Ulcers Neurological: Alert and Oriented x 3 Result Diagrams: 08/02/17 05:19 08/02/17 05:19 Microbiology and Other Data: Microbiology 08/01/17 11:57 Aerobic Blood Culture - Final Blood Venous Not Reportable Anaerobic Blood Culture - Final Not Reportable Blood Culture - Preliminary 08/01/17 11:00 Influenza Types A,B Antigen (DOLORES) - Final Nasal Specimen received for Influenza A/B Molecular testing Assess/Plan/Problems-Billing Assessment: Sepsis 2/2 acute cholecystitis, bacteremia in a 62 yo F with hx of HTN, HLD, DM , morbid obesity - Patient Problems (1) Acute cholecystitis Current Visit: Yes Comment: Sepsis. GNB in BCx. Continue Zosyn. Suspect her decompensation overnight was from rigor/fever which happened yesterday AM as well. CXR relatively clear, weaned off O2. Will hold additional ABx and VQ scan for now. Appreciate Surgery assistance, will continue to monitor for now with IV ABx, keep NPO. (2) MEL (acute kidney injury) Current Visit: Yes Comment: 2/2 sepsis. Continue IVF. Hold nephroptoxic medications. BMP daily. (3) Chest pain Current Visit: Yes Comment: NST with what appears to be reversible area in anterior wall, on review had similar finding on prior NST with subsequent normal cath. Spoke with Dr. Gordon who compared the two studies and saw no new changes, felt this may be breast artifact. Unlikely to be cardiac cause. ASA and statin for primary prevention. (4) Diabetes Current Visit: Yes Comment: HISS (5) HTN (hypertension) Current Visit: Yes Comment: Holding home Lisinopril, HCTZ (6) HLD (hyperlipidemia) Current Visit: Yes Comment: Continue Atorvastatin (7) Hypothyroidism Current Visit: Yes Comment: Continue home synthroid (8) DVT prophylaxis Current Visit: Yes Comment: HSQ Status and Disposition: Inpatient for acute cholecystitis
[2017-08-02 09:11] LABS: Albumin 3.2 g/dL (3.2-5.2); Direct Bilirubin 0.6 mg/dL (0.03-0.18); Globulin 2.7 g/dL (2-4); Indirect Bilirubin 0.7 mg/dL (0.3-1.0); Total Bilirubin 1.3 mg/dL (0.2-1.0); Total Protein 5.9 g/dL (6.4-8.9)
[2017-08-02] MEDS: Multivitamins/Minerals TAB PO SCH (09:42)
[2017-08-02] MEDS: Aspirin EC Low Dose* 81 MG TAB.EC PO SCH (09:42)
--- NOTE | 2017-08-02 12:00 | CONS ---
CC: [facility]; Dr. Yin * CONSULTATION REPORT: DATE OF CONSULT: 08/02/17 REFERRING PROVIDER: Hong Mishra MD, hospitalist. REASON FOR CONSULT: Acute cholecystitis. HISTORY OF PRESENT ILLNESS: Ms. Michelle Don is a very pleasant 62-year-old woman who is morbidly obese with also a history of diabetes, hypothyroidism, hypertension, and hyperlipidemia, who presented tot he emergency room and subsequently was admitted to the hospitalist service 48 hours ago. She states she had developed some pain in her upper abdomen, chest radiating into the back. She had some similar symptoms 5 or 6 years ago and had an unremarkable cardiac evaluation. She said she had somewhat of an upset stomach and associated with nausea and vomiting, but no shortness of breath, diaphoresis or lower abdominal discomfort. She had no change in bowel habits and no black tarry stools. When seen in the emergency room, she was noted to have a normal white blood cell count. Electrolytes, BUN and creatinine were within normal limits. Normal AST, ALT, and alkaline phosphatase with total bilirubin of 1.2. Her EKG and troponins were unremarkable. There was concern for cardiac etiology and she was admitted to the hospitalist service. In the interm, she underwent a chemical cardiac stress test. This was read as a small to moderate partially reversible defect. However, on review of her study done 5 years ago and in discussion with Dr. Mishra as well as Dr. Gordon from Cardiology, this was felt to be an artifact and it was similar in findings to the study, which prompted a normal coronary arteriogram then and it was not felt to be cardiac significance. Yesterday, she developed fever, tachycardia, and some hypoxia. At that time, she underwent both an ultrasound of her right upper quadrant and a CAT scan, both have confirmed gallbladder wall thickening with some pericholecystic inflammation and a gallstone, all consistent with acute cholecystitis. Last night she was started on IV antibiotics; however, developed some rigors once again with tachycardia and some hypoxia, and she was transferred to the intensive care unit and subsequently responded to further resuscitative efforts and now surgical consultation has been obtained. PAST MEDICAL HISTORY: 1. Diabetes. 2. Hypothyroidism. 3. Hypertension. 4. Hyperlipidemia. PAST SURGICAL HISTORY: section. MEDICATIONS ON ADMISSION: 1. Metformin. 2. Synthroid. 3. Lisinopril. 4. Simvastatin. 5. Multivitamins. ALLERGIES: She is allergic to PREGABALIN and PROPOXYPHENE. SOCIAL HISTORY: She has 4 children. She lives on her own. She does not use tobacco or alcohol. She is disabled. She has no healthcare proxy. REVIEW OF SYSTEMS: Otherwise unremarkable as per above. PHYSICAL EXAM: Temperature is 97.9, pulse rate in the 70s, blood pressure 118/ 76. In general, she is a morbidly obese woman, who is quite pleasant, awake, alert, conversant, in no apparent distress. Her lungs with diminished breath sounds throughout. Heart has a regular rate and rhythm without murmurs, rubs, or gallops. Abdomen is morbidly obese. There are no prior surgical incisions. No hernias. She had diminished bowel sounds throughout. She has some very mild tenderness in the right upper quadrant without rebound or guarding. There is no generalized peritoneal irritation. LABORATORY DATA: Laboratory values this morning include a white blood cell count of 12,800 with hemoglobin of 11.6. Blood sugar is 99. Troponins are 0.00. Liver profile pending. IMPRESSION: Acute calculus cholecystitis, now going on approximately 48 to 72 hours. Not mentioned above are blood cultures now just returned with gram- negative bacilli. She is now started on antibiotics last night and has responded nicely. At this point into the course of the cholecystitis, I feel the appropriate management would be further resuscitation with administration of IV antibiotics at least over the next 24 to 48 hours. She has an increased risk for an open procedure and with her morbid obesity, the high risk of morbidity and even mortality from surgical intervention. It appears that her cardiac status is not an issue here; however, would also check the liver profile to rule out cholangitis, i.e., an obstructive picture that would require biliary decompression, i.e., an ERCP. For now, we will continue the resuscitation, keep her n.p.o. and then continue the IV antibiotics. We will check the liver profile. If she continues to improve on IV antibiotics, would continue with this course with consideration of an interval cholecystectomy. Another thought obviously would be percutaneous drainage, which may be difficult to obtain here on the Day weekend but certainly would be much less morbid and lower risk of general anesthetic in someone with significant comorbidities. I discussed all of this with Dr. Mishra and will follow her closely with you. [id number]/[facility] #: [id number] [facility]
[2017-08-02] MEDS: Acetaminophen TAB* 325 MG PO PRN ×2 (13:57→19:32)
[2017-08-02] MEDS: Atorvastatin* 10 MG TAB PO SCH (21:08)
[2017-08-03] MEDS: ZOSYN 3.375 GM Q8H per EXTENDED INFUSION IVPB SCH ×2 (01:10)
[2017-08-03] MEDS ORDERED: Vancomycin(*) 1,500 MG in NS 0.9% 250 ML* 250 ML IVPB SCH (03:00)
[2017-08-03] MEDS: Insulin LISPRO* 1 UNITS UNIT SUBCUT SCH ×4 (05:45→23:42)
[2017-08-03] MEDS: Levothyroxine TAB* 100 MCG TAB PO SCH (05:50)
[2017-08-03] MEDS: Omeprazole CAP* 20 MG PO SCH (05:50)
[2017-08-03] MEDS: Heparin VIAL(*) 5000 UNITS/ML VIAL (FIVE THOUSAND) SUBCUT SCH ×3 (05:50→21:36)
[2017-08-03 05:51] LABS: Hematocrit 35 % (35-47); Hemoglobin 11.7 g/dl (12.0-16.0); Mean Corpuscular HGB Conc 33 g/dl (31-36); Mean Corpuscular Hemoglobin 27 pg (27-31); Mean Corpuscular Volume 80 fL (80-97); Mean Platelet Volume 8 um3 (7.4-10.4); Red Blood Count 4.35 10^6/ul (4.0-5.4); Red Cell Distribution Width 15 % (10.5-15); White Blood Count 6.6 10^3/ul (3.5-10.8)
[2017-08-03 05:52] LABS: Add Diff/Slide Review? Manual Diff Added; Comments Flag Yes
[2017-08-03 06:17] LABS: Albumin 3.3 g/dL (3.2-5.2); BUN/Creatinine Ratio 15.2 (8-20); Calcium 8.4 mg/dL (8.6-10.3); EGFR African American 55.8 (>60); EGFR Non-African American 43.4 (>60); Globulin 2.8 g/dL (2-4); Potassium 3.5 mmol/L (3.5-5.0); Total Bilirubin 0.9 mg/dL (0.2-1.0); Total Protein 6.1 g/dL (6.4-8.9)
[2017-08-03 06:19] LABS: Add Path Review? YES; Eosinophils % 2 % (0-6); Immature Granulocytes 1 % (0-9); Neutrophil % 78 % (38-83); RBC Morphology Normal (Normal)
[2017-08-03] MEDS: Multivitamins/Minerals TAB PO SCH (07:49)
[2017-08-03] MEDS: NS 0.9% w/ 20 Meq KCL 1000 ML* 1,000 ML IV SCH ×3 (07:49→23:23)
[2017-08-03] MEDS: Aspirin EC Low Dose* 81 MG TAB.EC PO SCH (07:49)
--- NOTE | 2017-08-03 09:26 | PN ---
Subjective Date of Service: 08/03/17 Interval History: Patient seen this morning, reports feeling well. No fever/chills overnight. No abdominal pain unless palpated. No nausea, asking for food. Family History: Unchanged from Admission Social History: Unchanged from Admission Past Medical History: Unchanged from Admission Objective Active Medications: Acetaminophen (Tylenol Tab*) 650 mg PO Q4H PRN Aspirin (Aspirin Ec Low Dose*) 81 mg PO DAILY SUSAN Atorvastatin Calcium (Lipitor*) 10 mg PO BEDTIME SUSAN Dextrose (D50w Syringe 50 Ml*) 12.5 gm IV PUSH .FOR FS < 60 - SS PRN Heparin Sodium (Porcine) (Heparin Vial(*)) 5,000 units SUBCUT Q8HR SUSAN Potassium Chloride/Sodium Chloride (Ns 0.9% W/ 20 Meq Kcl 1000 Ml*) 1,000 mls @ 100 mls/hr IV PER RATE SUSAN Ciprofloxacin/Dextrose (Cipro 400 Mg Ivpremix(*)) 400 mg in 200 mls @ 200 mls/ hr IVPB Q12H SUSAN Insulin Human Lispro (Humalog*) 0 units SUBCUT Q6HR SUSAN Levothyroxine Sodium (Synthroid Tab*) 100 mcg PO DAILY@0600 SUSAN Lorazepam (Ativan Inj*) 1 mg IV PUSH Q6H PRN Multivitamins/Minerals (Theragran/Minerals Tab*) 1 tab PO DAILY SUSAN Omeprazole (Prilosec Cap*) 20 mg PO 0600 SUSAN Ondansetron HCl (Zofran Inj*) 4 mg IV Q6H PRN Vital Signs 08/02/17 08/02/17 08/02/17 09:31 09:46 10:00 Temperature Pulse Rate 77 78 75 Respiratory 18 22 23 Rate Blood Pressure 94/54 99/63 (mmHg) O2 Sat by Pulse 92 94 95 Oximetry 08/02/17 08/02/17 08/02/17 21:00 21:02 22:00 Temperature Pulse Rate 102 98 96 Respiratory 27 37 26 Rate Blood Pressure 121/76 (mmHg) O2 Sat by Pulse 91 93 94 Oximetry 08/03/17 08/03/17 08/03/17 06:00 07:00 07:01 Temperature Pulse Rate 78 84 80 Respiratory 18 16 21 Rate Blood Pressure 113/72 121/79 (mmHg) O2 Sat by Pulse 94 95 94 Oximetry Oxygen Devices in Use Now: None Appearance: Middle-aged, obese, F, sitting in chair in NAD Eyes: No Scleral Icterus Ears/Nose/Mouth/Throat: - - Dry MM Neck: NL Appearance and Movements; NL JVP Respiratory: Symmetrical Chest Expansion and Respiratory Effort, - - Diminished in bases Cardiovascular: NL Sounds; No Murmurs; No JVD, RRR Abdominal: - - Soft, obese, TTP in RUQ, no rebound/guarding Lymphatic: No Cervical Adenopathy Extremities: No Edema Skin: No Rash or Ulcers Neurological: Alert and Oriented x 3 Result Diagrams: 08/03/17 05:43 08/03/17 05:43 Assess/Plan/Problems-Billing Assessment: Sepsis 2/2 acute cholecystitis, bacteremia in a 62 yo F with hx of HTN, HLD, DM , morbid obesity - Patient Problems (1) Acute cholecystitis Current Visit: Yes Comment: Sepsis. Enterobacter in BCx, sensitive to Cipro ( resistant to Augmentin), will change to this. Appreciate Surgery assistance, yesterday discussed the possibility of perc drain. Will continue to monitor for now with IV ABx, keep NPO pending surgery re -eval. (2) MEL (acute kidney injury) Current Visit: Yes Comment: 2/2 sepsis. Improving. Continue IVF at decreased rate. Hold nephroptoxic medications. BMP daily. (3) Chest pain Current Visit: Yes Comment: NST with what appears to be reversible area in anterior wall, on review had similar finding on prior NST with subsequent normal cath. Spoke with Dr. Gordon who compared the two studies and saw no new changes, felt this may be breast artifact. Unlikely to be cardiac cause. ASA and statin for primary prevention. (4) Diabetes Current Visit: Yes Comment: HISS (5) HTN (hypertension) Current Visit: Yes Comment: Holding home Lisinopril, HCTZ (6) HLD (hyperlipidemia) Current Visit: Yes Comment: Continue Atorvastatin (7) Hypothyroidism Current Visit: Yes Comment: Continue home synthroid (8) DVT prophylaxis Current Visit: Yes Comment: HSQ Status and Disposition: Inpatient for acute cholecystitis
[2017-08-03] MEDS: Ciprofloxacin 400MG IVPREMIX(* 400 MG/200 ML BAG IVPB SCH ×2 (09:27→21:36)
[2017-08-03] MEDS: Acetaminophen TAB* 325 MG PO PRN ×3 (12:05→22:02)
--- NOTE | 2017-08-03 12:07 | PN ---
Progress Note - Progress Note Date of Service: 08/03/17 Note: HD#2 cholecystitis Feeling better, much less pain, no N/V. Febrile yest afternoon, afrebrile now. Labs noted, WBC down, LFT's OK. Abd: Obese, soft, minimally tender RUQ. She states 75% better than yesterday. Rec: Cont iv abx tx for cholecystitis. Will cont to monitor with you. Will start clears.
[2017-08-03] MEDS: Ondansetron INJ* 2 MG/ML VIAL IV PRN (15:55)
[2017-08-03] MEDS ORDERED: Ibuprofen TAB* 400 MG PO ONE (18:02)
[2017-08-03] MEDS: Albuterol 2.5 MG/3 ML NEB.SOL* (0.083%) INH PRN (19:14)
[2017-08-03] MEDS: Atorvastatin* 10 MG TAB PO SCH (21:36)
[2017-08-04] MEDS: Mometasone/Formoter 100/5 MDI INH SCH ×3 (00:11→21:30)
[2017-08-04] MEDS: Heparin VIAL(*) 5000 UNITS/ML VIAL (FIVE THOUSAND) SUBCUT SCH ×3 (05:54→21:36)
[2017-08-04] MEDS: Omeprazole CAP* 20 MG PO SCH (05:54)
[2017-08-04] MEDS: Levothyroxine TAB* 100 MCG TAB PO SCH (05:54)
[2017-08-04] MEDS: Insulin LISPRO* 1 UNITS UNIT SUBCUT SCH ×4 (06:12→23:55)
[2017-08-04 06:24] LABS: Hematocrit 33 % (35-47); Hemoglobin 11.1 g/dl (12.0-16.0); Mean Corpuscular HGB Conc 34 g/dl (31-36); Mean Corpuscular Hemoglobin 27 pg (27-31); Mean Corpuscular Volume 80 fL (80-97); Mean Platelet Volume 8 um3 (7.4-10.4); Red Blood Count 4.14 10^6/ul (4.0-5.4); Red Cell Distribution Width 16 % (10.5-15); White Blood Count 7.2 10^3/ul (3.5-10.8)
[2017-08-04 06:38] LABS: Albumin 3.1 g/dL (3.2-5.2); Calcium 8.2 mg/dL (8.6-10.3); EGFR African American 72.3 (>60); EGFR Non-African American 56.2 (>60); Globulin 3.1 g/dL (2-4); Potassium 3.6 mmol/L (3.5-5.0); Total Bilirubin 0.7 mg/dL (0.2-1.0); Total Protein 6.2 g/dL (6.4-8.9)
[2017-08-04] MEDS: NS 0.9% w/ 20 Meq KCL 1000 ML* 1,000 ML IV SCH (07:36)
[2017-08-04] MEDS: Acetaminophen TAB* 325 MG PO PRN ×3 (07:36→23:58)
[2017-08-04] MEDS: Multivitamins/Minerals TAB PO SCH (07:37)
[2017-08-04] MEDS: Aspirin EC Low Dose* 81 MG TAB.EC PO SCH (07:37)
[2017-08-04] MEDS: Ciprofloxacin 400MG IVPREMIX(* 400 MG/200 ML BAG IVPB SCH ×2 (08:02→21:36)
[2017-08-04] MEDS: Albuterol 2.5 MG/3 ML NEB.SOL* (0.083%) INH PRN (08:23)
[2017-08-04] MEDS ORDERED: Acetaminophen TAB* 325 MG PO ONE (08:30)
[2017-08-04] MEDS: metroNIDAZOLE IV 500 MG/100ML* 500 MG/100 ML BAG IVPB SCH ×2 (10:00→17:39)
--- NOTE | 2017-08-04 10:13 | PN ---
Subjective Date of Service: 08/04/17 Interval History: Pain RUQ less than yesterday. Hungry and thirsty. No new c/o. Family History: Unchanged from Admission Social History: Unchanged from Admission Past Medical History: Unchanged from Admission Objective Active Medications: Acetaminophen (Tylenol Tab*) 975 mg PO Q6H PRN PRN Reason: PAIN/FEVER Albuterol (Ventolin 2.5 Mg/3 Ml Neb.Florinda*) 2.5 mg INH Q4H PRN PRN Reason: SOB/WHEEZING Last Admin: 08/04/17 08:23 Dose: 2.5 mg Aspirin (Aspirin Ec Low Dose*) 81 mg PO DAILY [facility] Last Admin: 08/04/17 07:37 Dose: 81 mg Atorvastatin Calcium (Lipitor*) 10 mg PO BEDTIME [facility] Last Admin: 08/03/17 21:36 Dose: 10 mg Dextrose (D50w Syringe 50 Ml*) 12.5 gm IV PUSH .FOR FS < 60 - SS PRN PRN Reason: FS < 60 Heparin Sodium (Porcine) (Heparin Vial(*)) 5,000 units SUBCUT Q8HR [facility] Last Admin: 08/04/17 05:54 Dose: 5,000 units Potassium Chloride/Sodium Chloride (Ns 0.9% W/ 20 Meq Kcl 1000 Ml*) 1,000 mls @ 100 mls/hr IV PER RATE [facility] Last Admin: 08/04/17 07:36 Dose: 100 mls/hr Ciprofloxacin/Dextrose (Cipro 400 Mg Ivpremix(*)) 400 mg in 200 mls @ 200 mls/ hr IVPB Q12H [facility] Last Admin: 08/04/17 08:02 Dose: 200 mls/hr Metronidazole/Sodium Chloride (Flagyl 500 Mg Ivpb*) 500 mg in 100 mls @ 100 mls /hr IVPB Q8H [facility] Insulin Human Lispro (Humalog*) 0 units SUBCUT Q6HR SUSAN PRN Reason: Protocol Last Admin: 08/04/17 06:12 Dose: Not Given Levothyroxine Sodium (Synthroid Tab*) 100 mcg PO DAILY@0600 [facility] Last Admin: 08/04/17 05:54 Dose: 100 mcg Lorazepam (Ativan Inj*) 1 mg IV PUSH Q6H PRN PRN Reason: ANXIETY Last Admin: 08/02/17 14:10 Dose: 1 mg Mometasone Furoate/Formoterol Fumar (Dulera 100/5 Mdi*) 2 puff INH BID [facility] Last Admin: 08/04/17 08:23 Dose: 2 puff Multivitamins/Minerals (Theragran/Minerals Tab*) 1 tab PO DAILY [facility] Last Admin: 08/04/17 07:37 Dose: 1 tab Omeprazole (Prilosec Cap*) 20 mg PO 0600 [facility] Last Admin: 08/04/17 05:54 Dose: 20 mg Ondansetron HCl (Zofran Inj*) 4 mg IV Q6H PRN PRN Reason: NAUSEA Last Admin: 08/03/17 15:55 Dose: 4 mg Vital Signs 08/03/17 08/03/17 08/03/17 11:00 11:01 11:57 Temperature 100.2 F Pulse Rate 83 85 Respiratory 24 29 Rate Blood Pressure 104/79 (mmHg) O2 Sat by Pulse 92 91 Oximetry 08/03/17 08/03/17 08/03/17 12:00 12:01 13:00 Temperature Pulse Rate 87 Respiratory 22 24 16 Rate Blood Pressure 108/93 (mmHg) O2 Sat by Pulse 97 Oximetry 08/03/17 08/03/17 08/03/17 13:01 13:48 14:01 Temperature Pulse Rate 92 84 Respiratory 20 18 30 Rate Blood Pressure 130/83 133/92 (mmHg) O2 Sat by Pulse 91 92 Oximetry 08/03/17 08/03/17 08/03/17 15:00 15:01 16:00 Temperature 101.2 F Pulse Rate 80 155 Respiratory 22 9 44 Rate Blood Pressure 110/59 (mmHg) O2 Sat by Pulse 94 96 Oximetry 08/03/17 08/03/17 08/03/17 16:10 16:30 17:00 Temperature Pulse Rate 122 124 Respiratory 39 22 Rate Blood Pressure 167/129 (mmHg) O2 Sat by Pulse 93 80 Oximetry 08/03/17 08/03/17 08/03/17 17:19 17:30 17:51 Temperature Pulse Rate 108 107 Respiratory 12 33 29 Rate Blood Pressure 111/69 (mmHg) O2 Sat by Pulse 90 91 Oximetry 08/03/17 08/03/17 08/03/17 18:00 18:01 18:30 Temperature 102.3 F Pulse Rate 106 108 100 Respiratory 33 28 28 Rate Blood Pressure 103/68 (mmHg) O2 Sat by Pulse 90 90 91 Oximetry 08/03/17 08/03/17 08/03/17 19:00 19:15 19:30 Temperature Pulse Rate 91 87 94 Respiratory 25 17 25 Rate Blood Pressure 126/71 (mmHg) O2 Sat by Pulse 94 96 92 Oximetry 08/03/17 08/03/17 08/03/17 20:00 20:01 20:30 Temperature 98.7 F Pulse Rate 90 89 87 Respiratory 27 24 24 Rate Blood Pressure 107/68 (mmHg) O2 Sat by Pulse 95 93 94 Oximetry 08/03/17 08/03/17 08/03/17 21:00 21:30 21:58 Temperature Pulse Rate 80 78 Respiratory 20 18 19 Rate Blood Pressure 116/72 (mmHg) O2 Sat by Pulse 94 95 Oximetry 08/03/17 08/03/17 08/03/17 22:00 22:01 22:30 Temperature Pulse Rate 77 73 65 Respiratory 25 35 19 Rate Blood Pressure 104/65 (mmHg) O2 Sat by Pulse 94 94 94 Oximetry 08/03/17 08/03/17 08/03/17 23:00 23:01 23:17 Temperature Pulse Rate 73 71 70 Respiratory 23 20 18 Rate Blood Pressure 114/65 (mmHg) O2 Sat by Pulse 91 91 89 Oximetry 08/03/17 08/03/17 08/04/17 23:30 23:43 00:00 Temperature 97.6 F Pulse Rate 72 64 Respiratory 19 22 14 Rate Blood Pressure (mmHg) O2 Sat by Pulse 92 94 97 Oximetry 08/04/17 08/04/17 08/04/17 00:01 00:30 01:00 Temperature Pulse Rate 64 68 72 Respiratory 9 4 21 Rate Blood Pressure 110/69 131/85 (mmHg) O2 Sat by Pulse 96 95 92 Oximetry 08/04/17 08/04/17 08/04/17 01:30 02:00 02:01 Temperature Pulse Rate 71 66 68 Respiratory 16 18 20 Rate Blood Pressure 132/91 (mmHg) O2 Sat by Pulse 88 96 97 Oximetry 08/04/17 08/04/17 08/04/17 02:30 03:00 03:01 Temperature Pulse Rate 74 72 72 Respiratory 30 22 21 Rate Blood Pressure 136/98 (mmHg) O2 Sat by Pulse 92 94 93 Oximetry 08/04/17 08/04/17 08/04/17 03:30 04:00 04:30 Temperature 97.9 F Pulse Rate 72 71 72 Respiratory 19 26 1 Rate Blood Pressure 118/80 (mmHg) O2 Sat by Pulse 93 93 91 Oximetry 08/04/17 08/04/17 08/04/17 05:00 05:30 05:48 Temperature Pulse Rate 74 74 Respiratory 22 24 14 Rate Blood Pressure 122/77 (mmHg) O2 Sat by Pulse 93 95 Oximetry 08/04/17 08/04/17 08/04/17 06:00 07:01 07:30 Temperature Pulse Rate 76 79 Respiratory 26 26 21 Rate Blood Pressure 125/83 137/86 (mmHg) O2 Sat by Pulse 94 92 Oximetry 08/04/17 08/04/17 08/04/17 07:50 07:55 08:00 Temperature 100.2 F Pulse Rate 76 Respiratory 20 18 Rate Blood Pressure (mmHg) O2 Sat by Pulse 95 Oximetry 08/04/17 08:23 Temperature Pulse Rate 79 Respiratory 21 Rate Blood Pressure (mmHg) O2 Sat by Pulse 97 Oximetry Oxygen Devices in Use Now: None Appearance: Alert, sitting up in iCU bed. In good spirits. Looks comfortable. Eyes: No Scleral Icterus Neck: NL Appearance and Movements; NL JVP, No Thyroid Enlargement, Masses Respiratory: Symmetrical Chest Expansion and Respiratory Effort, Clear to Auscultation, Clear to Percussion Abdominal: No Hepatosplenomegaly, - - Soft, much tenderness RUQ. Diminished BS. Extremities: No Edema, No Clubbing, Cyanosis, - Skin: No Rash or Ulcers, No Nodules or Sclerosis, - Neurological: Alert and Oriented x 3, NL Sensation Result Diagrams: 08/04/17 06:10 08/04/17 06:10 Microbiology and Other Data: Microbiology 08/01/17 11:57 Aerobic Blood Culture - Final Blood Venous Not Reportable Anaerobic Blood Culture - Final Not Reportable Blood Culture - Preliminary 08/01/17 11:00 Influenza Types A,B Antigen (DOLORES) - Final Nasal Specimen received for Influenza A/B Molecular testing Assess/Plan/Problems-Billing Assessment: Sepsis 2/2 acute cholecystitis, bacteremia in a 62 yo F with hx of HTN, HLD, DM , morbid obesity - Patient Problems (1) Acute cholecystitis Current Visit: Yes Status: Acute Code(s): K81.0 - ACUTE CHOLECYSTITIS SNOMED Code(s): 23146233 Comment: Sepsis. Enterobacter in BCx, sensitive to Cipro . Add metronidazole. Discussd with Dr. Burleson 08/04. ? percutaneious drain soon. (2) Hypothyroidism Current Visit: Yes Status: Acute Code(s): E03.9 - HYPOTHYROIDISM, UNSPECIFIED SNOMED Code(s): 73245558 Comment: TSH add on requested. Continue home dose levothyroxine. (3) HTN (hypertension) Current Visit: Yes Status: Acute Code(s): I10 - ESSENTIAL (PRIMARY) HYPERTENSION SNOMED Code(s): 89684307 Comment: Holding home Lisinopril, HCTZ (4) Morbid obesity Current Visit: Yes Status: Acute Code(s): E66.01 - MORBID (SEVERE) OBESITY DUE TO EXCESS CALORIES SNOMED Code(s): 899663204 Comment: BMI 48.0. Status and Disposition: Inpatient for acute cholecystitis
--- NOTE | 2017-08-04 10:18 | PN ---
Progress Note - Progress Note Date of Service: 08/04/17 SOAP: Subjective: She continues to feel better but still has some RUQ abdominal pain Had episode of fever with rigors yesterday afternoon. No nausea, OOB without SOB Objective: Temp Pulse Resp BP Pulse Ox 100.4 F 86 25 139/90 93 08/04/17 10:12 08/04/17 10:01 08/04/17 10:01 08/04/17 10:01 08/04/17 10:01 Tmax 102.3 PEX: Comfortable in chair Lungs are clear Abd is soft and non-distended. Bowel sounds are present. There is tenderness with some guarding on deeper palpation in RUQ. No masses or peritoneal signs. Laboratory Last Values WBC 7.2 10^3/ul (3.5-10.8) 08/04/17 06:10 RBC 4.14 10^6/ul (4.0-5.4) 08/04/17 06:10 Hgb 11.1 g/dl (12.0-16.0) L 08/04/17 06:10 Hct 33 % (35-47) L 08/04/17 06:10 MCV 80 fL (80-97) 08/04/17 06:10 MCH 27 pg (27-31) 08/04/17 06:10 MCHC 34 g/dl (31-36) 08/04/17 06:10 RDW 16 % (10.5-15) H 08/04/17 06:10 Plt Count 198 10^3/ul (150-450) 08/04/17 06:10 MPV 8 um3 (7.4-10.4) 08/04/17 06:10 Immature Gran % (Auto) 1 % (0-9) 08/03/17 05:43 Neut % (Auto) 79.7 % (38-83) 08/04/17 06:10 Lymph % (Auto) 10.7 % (25-47) L 08/04/17 06:10 [place] % (Auto) 8.5 % (1-9) 08/04/17 06:10 Eos % (Auto) 0.8 % (0-6) 08/04/17 06:10 Baso % (Auto) 0.3 % (0-2) 08/04/17 06:10 Absolute Neuts (auto) 5.7 10^3/ul (1.5-7.7) 08/04/17 06:10 Absolute Lymphs (auto) 0.8 10^3/ul (1.0-4.8) L 08/04/17 06:10 Absolute Monos (auto) 0.6 10^3/ul (0-0.8) 08/04/17 06:10 Absolute Eos (auto) 0.1 10^3/ul (0-0.6) 08/04/17 06:10 Absolute Basos (auto) 0 10^3/ul (0-0.2) 08/04/17 06:10 Absolute Nucleated RBC 0 10^3/ul 08/04/17 06:10 Neutrophils % 78 % (38-83) 08/03/17 05:43 Band Neutrophils % 1 % (0-8) 08/03/17 05:43 Lymphocytes % 13 % (25-47) L 08/03/17 05:43 Monocytes % 5 % (0-13) 08/03/17 05:43 Eosinophils % 2 % (0-6) 08/03/17 05:43 Basophils % 1 % (0-2) 08/03/17 05:43 Nucleated RBC % 0 08/04/17 06:10 Normal RBC Morphology Normal (Normal) 08/03/17 05:43 INR (Anticoag Therapy) 0.89 (0.89-1.11) 07/30/17 20:43 APTT 28.2 seconds (26.0-36.3) 07/30/17 20:43 D-Dimer, Quantitative 254 ng/mL (Less Than 230) H 07/30/17 20:43 Patient Temperature Not Reportable 08/02/17 02:15 ABG pH 7.42 (7.35-7.45) 08/02/17 02:15 ABG pCO2 38 mmHg (35-45) 08/02/17 02:15 ABG pO2 98 mmHg (80-100) 08/02/17 02:15 ABG HCO3 25.1 mmol/L (19-31) 08/02/17 02:15 ABG O2 Saturation 98.2 % (95-98) H 08/02/17 02:15 ABG Base Excess 0.3 (-2.0-2.0) 08/02/17 02:15 Respiration Rate Not Reportable 08/02/17 02:15 O2 Delivery Device oxymask 08/02/17 02:15 Ventilator Type Not Reportable 08/02/17 02:15 Vent Mode Not Reportable 08/02/17 02:15 FiO2 Not Reportable 08/02/17 02:15 Inspiratory Time Not Reportable 08/02/17 02:15 PEEP Not Reportable 08/02/17 02:15 Pressure Support Not Reportable 08/02/17 02:15 Pressure Control Not Reportable 08/02/17 02:15 EPAP Not Reportable 08/02/17 02:15 IPAP Not Reportable 08/02/17 02:15 BiPAP Not Reportable 08/02/17 02:15 Sodium 137 mmol/L (133-145) 08/04/17 06:10 Potassium 3.6 mmol/L (3.5-5.0) 08/04/17 06:10 Chloride 106 mmol/L (101-111) 08/04/17 06:10 Carbon Dioxide 26 mmol/L (22-32) 08/04/17 06:10 Anion Gap 5 mmol/L (2-11) 08/04/17 06:10 BUN 15 mg/dL (6-24) 08/04/17 06:10 Creatinine 1.00 mg/dL (0.51-0.95) H 08/04/17 06:10 Est GFR ( Amer) 72.3 (>60) 08/04/17 06:10 Est GFR (Non-Af Amer) 56.2 (>60) 08/04/17 06:10 BUN/Creatinine Ratio 15.0 (8-20) 08/04/17 06:10 Glucose 102 mg/dL (70-100) H 08/04/17 06:10 POC Glucose (mg/dL) 114 mg/dL (70-100) H 08/04/17 05:46 Hemoglobin A1c 7.6 % (Less than 6.0) H 07/31/17 03:23 Calcium 8.2 mg/dL (8.6-10.3) L 08/04/17 06:10 Magnesium 1.8 mg/dL (1.9-2.7) L 07/30/17 20:43 Total Bilirubin 0.70 mg/dL (0.2-1.0) 08/04/17 06:10 Direct Bilirubin 0.60 mg/dL (0.03-0.18) H 08/02/17 05:19 Indirect Bilirubin 0.7 mg/dL (0.3-1.0) 08/02/17 05:19 AST 79 U/L (13-39) H 08/04/17 06:10 ALT 76 U/L (7-52) H 08/04/17 06:10 Alkaline Phosphatase 215 U/L (34-104) H 08/04/17 06:10 CK-MB (CK-2) 1.2 ng/mL (0.6-6.3) 07/30/17 20:43 Troponin I 0.01 ng/mL (<0.04) 08/02/17 05:19 Total Protein 6.2 g/dL (6.4-8.9) L 08/04/17 06:10 Albumin 3.1 g/dL (3.2-5.2) L 08/04/17 06:10 Globulin 3.1 g/dL (2-4) 08/04/17 06:10 Albumin/Globulin Ratio 1.0 (1-3) 08/04/17 06:10 Triglycerides 189 mg/dL 07/31/17 03:23 Cholesterol 168 mg/dL 07/31/17 03:23 LDL Cholesterol 88 mg/dL 07/31/17 03:23 HDL Cholesterol 42.1 mg/dL 07/31/17 03:23 Lipase 33 U/L (11.0-82.0) 07/30/17 20:43 Procalcitonin 4.0 ng/mL (<0.6) H 08/01/17 11:57 Influenza A (Rapid) Negative (Negative) 08/01/17 12:54 Influenza B (Rapid) Negative (Negative) 08/01/17 12:54 Blood Cultures with Enterobacter resistant to Zosyn, S to cipro Assessment: Acute calculous cholecystitis Positive blood cultures as above RUQ abdominal pain Normal WBC Fever last night Plan: Now on appropriate IV antibiotic for 24 hours. Flagyl also added this morning for anaerobic coverage. She has several spiking fevers over the past 48 hours but was not on appropriate antibiotic coverage. She still has some abdominal pain and at this point I do not think that she will respond to antibiotics alone and most likely some sort of drainage procedure will be necessary in the next 24 hours. Options are percutaneous catheter placement in IR tomorrow or a laparoscopic attempt at cholecystectomy that would most likely also be a drainage procedure as well due to the duration of her cholecystitis and her morbid obesity and would have the increased risks of anesthesia. I will discuss with radiology to evaluate options. Discussed with Dr. Marin She also had an echocardiogram this morning-will await results.
--- NOTE | 2017-08-04 10:47 | ECHO ---
Patient: KEIRY ZAMUDIO [facility] Rec#: [id number] : 1955 Date: 08/04/2017 Age: 62y Height: 173.99 cm / 68.5 in Weight: 138.8 kg / 305.9 lbs Sex: F BSA: 2.46 Room#: [facility] Admit Date#: 07/31/2017 Type: Inpatient Referring: Ilia Awan MD Reading: Matheus Dorman MD Beef Killer: Justa Espino RDCS CC: Brendan Yin MD Transthoracic Echocardiogram Indication: Dyspnea, hypotension BP: 94/73 HR: 74 Rhythm: NSR Findings History: HLD, hypothyroid, DM, HTN. Technical Comments: The study quality is fair. The study is technically limited due to patient body habitus. The study was technically limited due to the patient's inability to lay in the left lateral decubitus position. Patient was in reclined chair during study. Completed at 0930. Left Ventricle: The left ventricular chamber size is normal. Moderate concentric left ventricular hypertrophy is observed. Global left ventricular wall motion and contractility are within normal limits. Left ventricular systolic function is at the lower limits of normal. The estimated ejection fraction is 50-55%. Normal left ventricular diastolic filling is observed. Left Atrium: The left atrial chamber size is normal. Right Ventricle: The right ventricular cavity size is normal. The right ventricular global systolic function is normal. Right Atrium: The right atrial cavity size is normal. Aortic Valve: The aortic valve is trileaflet. There is a trace of aortic regurgitation. There is no evidence of aortic stenosis. Mitral Valve: There is mitral annular calcification. The mitral valve leaflets are mildly thickened. There is trace to mild mitral regurgitation. There is no evidence of mitral stenosis. Tricuspid Valve: The tricuspid valve leaflets are normal. There is mild tricuspid regurgitation. The right ventricular systolic pressure is estimated at 36 mmHg. There is evidence of mild pulmonary hypertension. There is no tricuspid stenosis. Pulmonic Valve: The pulmonic valve structure is not well visualized. There is a trace pulmonic regurgitation. There is no pulmonic stenosis. Pericardium: There is no significant pericardial effusion. A pericardial fat pad is visualized. Aorta: There is mild dilatation of the ascending aorta. There is no dilatation of the aortic arch. The aortic root is normal in size. Pulmonary Artery: The main pulmonary artery is not well visualized. Venous: The inferior vena cava is dilated. There is an approximate 50% respiratory change in the inferior vena cava dimension. Conclusions The study was technically limited due to the patient's inability to lay in the left lateral decubitus position. Patient was in reclined chair during study. Completed at 0930. Left ventricular systolic function is at the lower limits of normal. The estimated ejection fraction is 50-55%. Suble focal wall motion abnormalities cannot be excluded There is no evidence of aortic stenosis. There is trace to mild mitral regurgitation. There is mild tricuspid regurgitation. The right ventricular systolic pressure is estimated at 36 mmHg. There is no significant pericardial effusion. Measurements Name Value Normal Range RVIDd (AP) 2D 3.3 cm (0.9 - 2.6) RVDdMajor (2D) 3.3 cm (2.2 - 4.4) RVAW (2D) 0.8 cm (0.2 - 0.5) RAd ISD 4CH 4.3 cm (3.4 - 4.9) RA (A4C)W 3.7 cm (2.9 - 4.6) IVSd (2D) 1.3 cm (0.6 - 1) LVPWd (2D) 1.4 cm (0.6 - 1) LVIDd (2D) 4.5 cm (3.6 - 5.4) LVIDs (2D) 3.8 cm - LV FS (2D) 16 % (25 - 45) Aortic Annulus 1.9 cm (1.4 - 2.6) Ao root diameter (2D) 2.8 cm (2.1 - 3.5) Ascending Ao 3.7 cm (2.1 - 3.4) Aortic arch 2.48 cm (1.8 - 3.4) LA dimension (AP) 2D 3.9 cm (2.3 - 3.8) LAd ISD 4CH 5.1 cm (2.9 - 5.3) LA ISD 4CH W 4 cm (2.5 - 4.5) Name Value Normal Range LA ESV SP 4CH (A/L) 37 ml - LA ESV SP 2CH (A/L) 70 ml - LA ESV BP (A/L) 53 ml - LA ESV BP (A/L) index 21.73 ml/m2 - LA ESV SP 4CH (MOD) 34 ml - LA ESV SP 2CH (MOD) 68 ml - Name Value Normal Range MV E-wave Vmax 1.06 m/sec - MV deceleration time 175.5 msec - MV A-wave Vmax 0.69 m/sec - MV E:A ratio 1.5 ratio - LV septal e' Vmax 0.12 m/sec - LV lateral e' Vmax 0.11 m/sec - LV E:e' septal ratio 8.83 ratio - LV E:e' lateral ratio 9.64 ratio - Name Value Normal Range AV Vmax 1.58 m/sec - AV VTI 32.97 cm - AV peak gradient 10.04 mmHg - AV mean gradient 5.88 mmHg - LVOT Vmax 0.99 m/sec - LVOT VTI 22.72 cm - LVOT peak gradient 3.89 mmHg - LVOT mean gradient 2.37 mmHg - KATE Vmax 0.51 m/sec - Name Value Normal Range TR Vmax 2.3 m/sec - TR peak gradient 21 mmHg - RAP 15 mmHg - RVSP 36 mmHg - IVC diameter 2.6 cm - Name Value Normal Range PV Vmax 0.8 m/sec - PV peak gradient 2.57 mmHg -
[2017-08-04] MEDS: D5W 1/2 NS KCl 20 Meq 1000 ML* 1,000 ML IV SCH (17:47)
[2017-08-04] MEDS: Atorvastatin* 10 MG TAB PO SCH (21:36)
[2017-08-05] MEDS: metroNIDAZOLE IV 500 MG/100ML* 500 MG/100 ML BAG IVPB SCH ×3 (01:04→16:57)
[2017-08-05] MEDS ORDERED: Vancomycin Trough Check NOTE FOLLOW UP ONE (02:30)
[2017-08-05] MEDS: D5W 1/2 NS KCl 20 Meq 1000 ML* 1,000 ML IV SCH ×2 (03:40→16:02)
[2017-08-05] MEDS: Levothyroxine TAB* 100 MCG TAB PO SCH (05:54)
[2017-08-05] MEDS: Insulin LISPRO* 1 UNITS UNIT SUBCUT SCH ×4 (05:55→23:57)
[2017-08-05] MEDS: Heparin VIAL(*) 5000 UNITS/ML VIAL (FIVE THOUSAND) SUBCUT SCH ×3 (05:55→21:52)
[2017-08-05] MEDS: Multivitamins/Minerals TAB PO SCH (09:23)
[2017-08-05] MEDS: Aspirin EC Low Dose* 81 MG TAB.EC PO SCH (09:23)
[2017-08-05] MEDS: Mometasone/Formoter 100/5 MDI INH SCH ×2 (09:26→20:40)
[2017-08-05] MEDS: Ciprofloxacin 400MG IVPREMIX(* 400 MG/200 ML BAG IVPB SCH ×2 (09:26→20:40)
[2017-08-05] MEDS ORDERED: Morphine INJ* 4 MG/ML 1 ML CARPUJECT IV ONE (10:46)
[2017-08-05] MEDS ORDERED: Morphine INJ* 2 MG/ML 1 ML CARPUJECT ONE (10:54)
--- NOTE | 2017-08-05 12:03 | RAD ---
INDICATION: Right upper quadrant pain with evidence of cholecystitis on recent gallbladder ultrasound COMPARISON: Right upper quadrant ultrasound August 01, 2017 TECHNIQUE: Following the administration of 6 millicuries of technetium 99m mebrofenin, serial, static, anterior images of the abdomen were obtained at 5 minute increments for a period of one hour. The images were repeated following intravenous administration of 4 mg of morphine. FINDINGS: There is prompt uptake of radiopharmaceutical within the liver indicating normal hepatic function. After 1 hour of imaging there is no filling of the gallbladder. On the contrary there is a scintigraphically positive rim surrounding the expected location of the gallbladder. The patient was given 4 mg of morphine and imaging was acquired for an additional hour. Again the gallbladder did not exhibit any uptake. There is questionable leakage of bile along the medial margin of the left lobe of the liver. IMPRESSION: Scintigraphic imaging of the hepatobiliary system both before and after the administration of IV morphine indicate cystic bile duct obstruction. There is a questionable small biliary leak with radiotracer tracing along the medial margin of the left lobe the liver.
[2017-08-05] MEDS ORDERED: fentaNYL* 50 MCG/ML 5 ML VIAL (250 MCG VIAL) ONE (13:49)
[2017-08-05] MEDS ORDERED: Midazolam* 1 MG/ML 5 ML VIAL (5 MG) ONE (13:49)
--- NOTE | 2017-08-05 13:55 | PN ---
Progress Note - Progress Note Date of Service: 08/05/17 SOAP: Subjective: Patient initially seen at 0800 this morning She continues to feel better but still having RUQ abd pain She has a good appetite without N/V She has been ambulating without difficulty Objective: Fooz=462.9 Temp Pulse Resp BP Pulse Ox 98.4 F 75 24 140/81 93 08/05/17 07:18 08/05/17 07:18 08/05/17 11:57 08/05/17 07:18 08/05/17 07:18 PEX: Comfortable OOB Abd is soft and slighty distended. Bowel sounds are present She has tenderness in the right upper quadrant with some voluntary guarding Assessment: Acute calculous cholecystitis Persistent intermittent fever although improved in last 24 hours Persistent RUQ abd pain Positive blood cultures Plan: I'm concerned with persistent fevers and although she says her pain is improved she has been on IV antibiotics for 5 days without clear resolution. I discussed with Dr. Peralta from IR-he would like to obtain HIDA scan and assess cystic duct patency in consideration of a percutaneous drainage of her gallbladder. I think attempt at laparoscopic approach would only result in a drainage procedure or an open cholecystectomy which I feel has an increased risk of morbidity and mortality at this stage of the process. I discussed above with the patient and explained the treatment plan to her.
[2017-08-05] MEDS ORDERED: Morphine INJ* 4 MG/ML 1 ML CARPUJECT IV PRN ×2 (15:36→16:50)
[2017-08-05] MEDS ORDERED: Morphine INJ* 2 MG/ML 1 ML CARPUJECT IV PRN (17:03)
--- NOTE | 2017-08-05 17:06 | PN ---
Subjective Date of Service: 08/05/17 Interval History: Pain R abdomen from cholecystostomy procedure this afternoon. Family History: Unchanged from Admission Social History: Unchanged from Admission Past Medical History: Unchanged from Admission Objective Active Medications: Acetaminophen (Tylenol Tab*) 975 mg PO Q6H PRN PRN Reason: PAIN/FEVER Last Admin: 08/04/17 23:58 Dose: 975 mg Albuterol (Ventolin 2.5 Mg/3 Ml Neb.Florinda*) 2.5 mg INH Q4H PRN PRN Reason: SOB/WHEEZING Last Admin: 08/04/17 08:23 Dose: 2.5 mg Aspirin (Aspirin Ec Low Dose*) 81 mg PO DAILY [facility] Last Admin: 08/05/17 09:23 Dose: Not Given Atorvastatin Calcium (Lipitor*) 10 mg PO BEDTIME [facility] Last Admin: 08/04/17 21:36 Dose: 10 mg Dextrose (D50w Syringe 50 Ml*) 12.5 gm IV PUSH .FOR FS < 60 - SS PRN PRN Reason: FS < 60 Heparin Sodium (Porcine) (Heparin Vial(*)) 5,000 units SUBCUT Q8HR [facility] Last Admin: 08/05/17 14:03 Dose: Not Given Ciprofloxacin/Dextrose (Cipro 400 Mg Ivpremix(*)) 400 mg in 200 mls @ 200 mls/ hr IVPB Q12H [facility] Last Admin: 08/05/17 09:26 Dose: 200 mls/hr Metronidazole/Sodium Chloride (Flagyl 500 Mg Ivpb*) 500 mg in 100 mls @ 100 mls /hr IVPB Q8H [facility] Last Admin: 08/05/17 16:57 Dose: 100 mls/hr Potassium Chloride/Dextrose (D5w 1/2 Ns Kcl 20 Meq 1000 Ml*) 1,000 mls @ 125 mls/hr IV PER RATE [facility] Last Admin: 08/05/17 16:02 Dose: 125 mls/hr Insulin Human Lispro (Humalog*) 0 units SUBCUT Q6HR [facility] PRN Reason: Protocol Last Admin: 08/05/17 12:45 Dose: Not Given Levothyroxine Sodium (Synthroid Tab*) 100 mcg PO DAILY@0600 [facility] Last Admin: 08/05/17 05:54 Dose: Not Given Lorazepam (Ativan Inj*) 1 mg IV PUSH Q6H PRN PRN Reason: ANXIETY Last Admin: 08/02/17 14:10 Dose: 1 mg Mometasone Furoate/Formoterol Fumar (Dulera 100/5 Mdi*) 2 puff INH BID [facility] Last Admin: 08/05/17 09:26 Dose: 2 puff Morphine Sulfate (Morphine Inj (Syringe)*) 2 mg IV Q2H PRN PRN Reason: PAIN Last Admin: 08/05/17 16:57 Dose: 2 mg Multivitamins/Minerals (Theragran/Minerals Tab*) 1 tab PO DAILY [facility] Last Admin: 08/05/17 09:23 Dose: Not Given Ondansetron HCl (Zofran Inj*) 4 mg IV Q6H PRN PRN Reason: NAUSEA Last Admin: 08/03/17 15:55 Dose: 4 mg Vital Signs 08/04/17 08/04/17 08/04/17 19:15 20:00 21:38 Temperature 100.4 F 99.3 F Pulse Rate 94 86 Respiratory 22 18 18 Rate Blood Pressure 136/78 (mmHg) O2 Sat by Pulse 91 97 Oximetry 08/04/17 08/05/17 08/05/17 23:27 03:36 07:18 Temperature 100.0 F 98.6 F 98.4 F Pulse Rate 90 74 75 Respiratory 24 18 16 Rate Blood Pressure 130/70 112/61 140/81 (mmHg) O2 Sat by Pulse 91 92 93 Oximetry 08/05/17 08/05/17 08/05/17 08:00 11:05 11:57 Temperature Pulse Rate Respiratory 16 24 24 Rate Blood Pressure (mmHg) O2 Sat by Pulse Oximetry 08/05/17 16:57 Temperature Pulse Rate Respiratory 20 Rate Blood Pressure (mmHg) O2 Sat by Pulse Oximetry Oxygen Devices in Use Now: None Appearance: Alert, partly up in bed. In good spirits but looks a little uncomfortable. Eyes: No Scleral Icterus Respiratory: Symmetrical Chest Expansion and Respiratory Effort, Clear to Auscultation, Clear to Percussion Cardiovascular: NL Sounds; No Murmurs; No JVD, RRR, No Edema, - Abdominal: - - obese, diminished BS. Bile Extremities: No Edema, No Clubbing, Cyanosis, - Skin: No Rash or Ulcers, No Nodules or Sclerosis, - Neurological: Alert and Oriented x 3, NL Sensation Result Diagrams: 08/04/17 06:10 08/04/17 06:10 Microbiology and Other Data: Microbiology 08/01/17 11:57 Aerobic Blood Culture - Final Blood Venous Not Reportable Anaerobic Blood Culture - Final Not Reportable Blood Culture - Preliminary 08/01/17 11:00 Influenza Types A,B Antigen (DOLORES) - Final Nasal Specimen received for Influenza A/B Molecular testing Assess/Plan/Problems-Billing Assessment: Sepsis 2/2 acute cholecystitis, bacteremia in a 62 yo F with hx of HTN, HLD, DM , morbid obesity - Patient Problems (1) Acute cholecystitis Current Visit: Yes Status: Acute Code(s): K81.0 - ACUTE CHOLECYSTITIS SNOMED Code(s): 92122258 Comment: Sepsis. Enterobacter in BCx, sensitive to Cipro . Add metronidazole. S/P cholecystostomy tube 08/05/17. Cholecystostomy draining thin orange-brown liquid. Morphine 1 or 2 mg IV PRN pain. Continue IV fluids. ? advance diet 08/06. (2) Hypothyroidism Current Visit: Yes Status: Acute Code(s): E03.9 - HYPOTHYROIDISM, UNSPECIFIED SNOMED Code(s): 70962289 Comment: TSH add on 2.54 on 08/04/17. Continue home dose levothyroxine. (3) HTN (hypertension) Current Visit: Yes Status: Acute Code(s): I10 - ESSENTIAL (PRIMARY) HYPERTENSION SNOMED Code(s): 85869919 Comment: Holding home Lisinopril, HCTZ (4) Morbid obesity Current Visit: Yes Status: Acute Code(s): E66.01 - MORBID (SEVERE) OBESITY DUE TO EXCESS CALORIES SNOMED Code(s): 597120881 Comment: BMI 48.0. Status and Disposition: Inpatient for acute cholecystitis
--- NOTE | 2017-08-05 17:14 | RAD ---
CPT II Codes: 6045F PERCUTANEOUS CHOLECYSTOSTOMY WITH ULTRASOUND AND FLUOROSCOPIC GUIDANCE INDICATION: Fever, leukocytosis and right upper quadrant pain in a patient who is a poor operative candidate. COMPARISON: Gallbladder ultrasound dated August 01, 2017 as well as HIDA scan dated August 05, 2017 that indicate obstructive cholecystitis. FLUOROSCOPY TIME: 55 seconds ANESTHESIA AND OTHER PERIOPERATIVE MEDICATIONS: 1% lidocaine locally. Conscious sedation was achieved with IV fentanyl and Versed. Continuous cardiopulmonary monitoring was performed by the IR nurse and Dr. Peralta. CONSCIOUS SEDATION TIME: Timeout: 1400 hours End procedure time: 1430 hours. Conscious sedation time: 30 minutes PROCEDURE NOTE AND IMAGING FINDINGS: The benefits and risks of the procedure explained to the patient. The patient consented to the procedure. Preliminary sonographic exam demonstrates sonographic signs of obstructive cholecystitis similar to the preprocedural ultrasound. Color flow analysis does not show any pulsating arteries in the intended percutaneous biopsy tract or in the immediate vicinity of the planned drain placement. A percutaneous tract was specifically determined so that a small portion of the tract courses through the right lobe of the liver to better tamponade the gallbladder puncture site necessary for drain placement. The patient was brought to the fluoroscopy suite and positioned in the supine position. A formal time out was preformed with the technologist and nursing staff. The intended percutaneous cholecystostomy drain site was prepped and draped in the usual sterile fashion. The patient was given intravenous conscious sedation and local anesthesia with 1% lidocaine. Using ultrasound guidance the gallbladder was accessed percutaneously with an 18-gauge needle according to the Seldinger technique. An ultrasound image was saved confirming correct positioning of the needle tip in the collection. Through the needle a 0.035 inch guidewire was advanced into the cavity. The needle was removed and the tract was serially dilated over the wire culminating in placement of the percutaneous drainage catheter. Approximately 60 mL of purulent appearing biliary fluid was aspirated into a syringe, capped and sent to the laboratory for analysis. Under fluoroscopic control dilute contrast was injected outlining the gallbladder.. No fistulous communication with the bowel was observed. Reflux of contrast into the right hepatic biliary radicles was noted. With fluoroscopic guidance the pigtail catheter was positioned into the gallbladder lumen. After draining out as much fluid as would easily drained from the recently placed tube, the cavity was gently irrigated with sterile saline. The catheter was secured to the skin and the site was dressed with sterile gauze. The tube was connected to a gravity drainage bag. The patient tolerated the procedure well without incident. IMPRESSION: Uncomplicated placement of 10 Hungarian pigtail drainage catheter into the gallbladder with ultrasound and fluoroscopic guidance as described in the report. PLAN: 1. Drainage catheter to gravity. 2. Monitor drain output. 3. The drain should be gently flushed with 10 mL sterile saline through the three-way stopcock every 8 hours. Do not aspirate the drain. Return to gravity drainage after the flush injection. 4. Follow-up laboratory samples.
[2017-08-05] MEDS: Albuterol 2.5 MG/3 ML NEB.SOL* (0.083%) INH PRN (18:27)
[2017-08-05] MEDS: Morphine INJ* 2 MG/ML 1 ML CARPUJECT IV PRN ×2 (19:26→23:58)
[2017-08-05] MEDS: Acetaminophen TAB* 325 MG PO PRN (20:40)
[2017-08-05] MEDS: Atorvastatin* 10 MG TAB PO SCH (20:40)
[2017-08-06] MEDS: metroNIDAZOLE IV 500 MG/100ML* 500 MG/100 ML BAG IVPB SCH ×3 (01:04→16:37)
[2017-08-06] MEDS: Morphine INJ* 2 MG/ML 1 ML CARPUJECT IV PRN ×3 (02:15→22:02)
[2017-08-06] MEDS: D5W 1/2 NS KCl 20 Meq 1000 ML* 1,000 ML IV SCH (05:06)
[2017-08-06] MEDS: Heparin VIAL(*) 5000 UNITS/ML VIAL (FIVE THOUSAND) SUBCUT SCH ×3 (05:54→21:23)
[2017-08-06] MEDS: Insulin LISPRO* 1 UNITS UNIT SUBCUT SCH ×3 (05:54→18:41)
[2017-08-06] MEDS: Levothyroxine TAB* 100 MCG TAB PO SCH (05:54)
[2017-08-06] MEDS: Mometasone/Formoter 100/5 MDI INH SCH ×2 (08:22→21:51)
--- NOTE | 2017-08-06 08:27 | PN ---
Progress Note - Progress Note Date of Service: 08/06/17 SOAP: Subjective: Feels better today-would like to eat OOB this morning-- Pain at drainage catheter site Objective: Tmax 101 Temp Pulse Resp BP Pulse Ox 98.1 F 72 18 121/71 96 08/06/17 07:13 08/06/17 07:13 08/06/17 07:13 08/06/17 07:13 08/06/17 07:13 Intake & Output 08/04/17 08/05/17 08/06/17 08/07/17 06:59 06:59 06:59 06:59 Intake Total 4419 2288 1711 Output Total 450 250 575 Balance 3969 2038 1136 Weight 315 lb 7.704 oz Intake: IV Fluids 3259 2158 1191 ABX - CIPROFLOXACIN 200 200 D5W 1/2 NS 20 meq KCL 1958 1191 NS (0.9%) 20 meq KCL 3059 IVPB 210 205 ABX - CIPROFLOXACIN 205 NS (0.9%) 20 meq KCL 210 Oral 950 130 315 Output: Pigtail Drain 275 Urine 450 250 300 Other: Estimated Void Medium Medium # Bowel Movements 0 0 # Voids 2 2 PEX: Comfortable Abd is soft and slightly distended. Drain in place with dark bilious fluid in bag Assessment: Acute calculous cholecystitis s/p percutaneous drainage. Gram stain without organisms Blood cultures positive Plan: Continue IV anbx and tube drainage Will start po-low fat diet Await fluid cultures.
[2017-08-06] MEDS: Ciprofloxacin 400MG IVPREMIX(* 400 MG/200 ML BAG IVPB SCH ×2 (09:10→21:25)
[2017-08-06] MEDS: Multivitamins/Minerals TAB PO SCH (09:11)
[2017-08-06] MEDS: Aspirin EC Low Dose* 81 MG TAB.EC PO SCH (09:11)
[2017-08-06] MEDS ORDERED: D5W 1/2 NS KCl 20 Meq 1000 ML* 1,000 ML IV SCH (16:04)
--- NOTE | 2017-08-06 16:06 | PN ---
Subjective Date of Service: 08/06/17 Interval History: Pain improved, last had 1 mg MS 7 hrs ago. Had BM yesterday. Tolerating low fat diet so far. No new c/o. Family History: Unchanged from Admission Social History: Unchanged from Admission Past Medical History: Unchanged from Admission Objective Active Medications: Acetaminophen (Tylenol Tab*) 975 mg PO Q6H PRN PRN Reason: PAIN/FEVER Last Admin: 08/05/17 20:40 Dose: 975 mg Albuterol (Ventolin 2.5 Mg/3 Ml Neb.Florinda*) 2.5 mg INH Q4H PRN PRN Reason: SOB/WHEEZING Last Admin: 08/05/17 18:27 Dose: 2.5 mg Aspirin (Aspirin Ec Low Dose*) 81 mg PO DAILY [facility] Last Admin: 08/06/17 09:11 Dose: 81 mg Atorvastatin Calcium (Lipitor*) 10 mg PO BEDTIME [facility] Last Admin: 08/05/17 20:40 Dose: 10 mg Dextrose (D50w Syringe 50 Ml*) 12.5 gm IV PUSH .FOR FS < 60 - SS PRN PRN Reason: FS < 60 Heparin Sodium (Porcine) (Heparin Vial(*)) 5,000 units SUBCUT Q8HR [facility] Last Admin: 08/06/17 14:47 Dose: 5,000 units Ciprofloxacin/Dextrose (Cipro 400 Mg Ivpremix(*)) 400 mg in 200 mls @ 200 mls/ hr IVPB Q12H [facility] Last Admin: 08/06/17 09:10 Dose: 200 mls/hr Metronidazole/Sodium Chloride (Flagyl 500 Mg Ivpb*) 500 mg in 100 mls @ 100 mls /hr IVPB Q8H [facility] Last Admin: 08/06/17 11:09 Dose: 100 mls/hr Potassium Chloride/Dextrose (D5w 1/2 Ns Kcl 20 Meq 1000 Ml*) 1,000 mls @ 125 mls/hr IV PER RATE [facility] Last Admin: 08/06/17 05:06 Dose: 125 mls/hr Insulin Human Lispro (Humalog*) 0 units SUBCUT Q6HR [facility] PRN Reason: Protocol Last Admin: 08/06/17 13:03 Dose: Not Given Levothyroxine Sodium (Synthroid Tab*) 100 mcg PO DAILY@0600 [facility] Last Admin: 08/06/17 05:54 Dose: 100 mcg Lorazepam (Ativan Inj*) 1 mg IV PUSH Q6H PRN PRN Reason: ANXIETY Last Admin: 08/02/17 14:10 Dose: 1 mg Mometasone Furoate/Formoterol Fumar (Dulera 100/5 Mdi*) 2 puff INH BID [facility] Last Admin: 08/06/17 08:22 Dose: 2 puff Morphine Sulfate (Morphine Inj (Syringe)*) 2 mg IV Q3H PRN PRN Reason: PAIN - SEVERE Morphine Sulfate (Morphine Inj (Syringe)*) 1 mg IV Q2H PRN PRN Reason: PAIN - MODERATE Last Admin: 08/06/17 09:10 Dose: 1 mg Multivitamins/Minerals (Theragran/Minerals Tab*) 1 tab PO DAILY [facility] Last Admin: 08/06/17 09:11 Dose: 1 tab Ondansetron HCl (Zofran Inj*) 4 mg IV Q6H PRN PRN Reason: NAUSEA Last Admin: 08/03/17 15:55 Dose: 4 mg Vital Signs 08/05/17 08/05/17 08/05/17 16:57 17:57 18:29 Temperature Pulse Rate 89 Respiratory 20 20 18 Rate Blood Pressure (mmHg) O2 Sat by Pulse 93 Oximetry 08/05/17 08/05/17 08/05/17 19:26 19:28 20:26 Temperature 101.4 F Pulse Rate 97 Respiratory 16 20 16 Rate Blood Pressure 148/83 (mmHg) O2 Sat by Pulse 89 Oximetry 08/05/17 08/05/17 08/05/17 20:40 23:52 23:58 Temperature 97.5 F Pulse Rate 73 Respiratory 16 20 14 Rate Blood Pressure 112/68 (mmHg) O2 Sat by Pulse 94 Oximetry 08/06/17 08/06/17 08/06/17 00:00 00:58 02:15 Temperature Pulse Rate Respiratory 15 16 Rate Blood Pressure (mmHg) O2 Sat by Pulse 90 Oximetry 08/06/17 08/06/17 08/06/17 03:06 03:48 07:13 Temperature 97.5 F 98.1 F Pulse Rate 76 72 Respiratory 15 22 18 Rate Blood Pressure 128/63 121/71 (mmHg) O2 Sat by Pulse 93 96 Oximetry 08/06/17 08/06/17 08/06/17 09:10 09:59 11:13 Temperature Pulse Rate 74 Respiratory 16 16 Rate Blood Pressure (mmHg) O2 Sat by Pulse 95 Oximetry 08/06/17 11:28 Temperature 97.8 F Pulse Rate 73 Respiratory 18 Rate Blood Pressure 137/80 (mmHg) O2 Sat by Pulse 96 Oximetry Oxygen Devices in Use Now: None Appearance: Alert, in a chair. In good spirits. Looks comfortable. Eyes: No Scleral Icterus Respiratory: Symmetrical Chest Expansion and Respiratory Effort, Clear to Auscultation, Clear to Percussion Cardiovascular: NL Sounds; No Murmurs; No JVD, RRR, No Edema, - Abdominal: NL Sounds; No Tenderness; No Distention, No Hepatosplenomegaly, - - Biliary drain RUQ Extremities: No Edema, No Clubbing, Cyanosis, - Skin: No Rash or Ulcers, No Nodules or Sclerosis, - Neurological: Alert and Oriented x 3, NL Sensation Result Diagrams: 08/04/17 06:10 08/04/17 06:10 Microbiology and Other Data: Microbiology 08/01/17 11:57 Aerobic Blood Culture - Final Blood Venous Not Reportable Anaerobic Blood Culture - Final Not Reportable Blood Culture - Preliminary 08/01/17 11:00 Influenza Types A,B Antigen (DOLORES) - Final Nasal Specimen received for Influenza A/B Molecular testing Assess/Plan/Problems-Billing Assessment: Sepsis 2/2 acute cholecystitis, bacteremia in a 62 yo F with hx of HTN, HLD, DM , morbid obesity - Patient Problems (1) Acute cholecystitis Current Visit: Yes Status: Acute Code(s): K81.0 - ACUTE CHOLECYSTITIS SNOMED Code(s): 63690505 Comment: Sepsis. Enterobacter in BCx, sensitive to Cipro. Continue metronidazole. S/P cholecystostomy tube 08/05/17. CBC, CMP on 08/07. Drainage grew E. faecalis, sens pending (should be same as in blood). Morphine 1 or 2 mg IV PRN pain. Reducee IV fluids to 60 ml/hr 08/06. (2) Hypothyroidism Current Visit: Yes Status: Acute Code(s): E03.9 - HYPOTHYROIDISM, UNSPECIFIED SNOMED Code(s): 78023398 Comment: TSH add on 2.54 on 08/04/17. Continue home dose levothyroxine. (3) HTN (hypertension) Current Visit: Yes Status: Acute Code(s): I10 - ESSENTIAL (PRIMARY) HYPERTENSION SNOMED Code(s): 82100322 Comment: Holding home Lisinopril, HCTZ (4) Morbid obesity Current Visit: Yes Status: Acute Code(s): E66.01 - MORBID (SEVERE) OBESITY DUE TO EXCESS CALORIES SNOMED Code(s): 566136442 Comment: BMI 48.0. (5) Diabetes Current Visit: Yes Status: Acute Code(s): E11.9 - TYPE 2 DIABETES MELLITUS WITHOUT COMPLICATIONS SNOMED Code(s): 37715474 Comment: Using 2-6 U coverage per day. Metformin on hold. FS all under 200. A1C 07/31/17. Status and Disposition: Inpatient for acute cholecystitis
[2017-08-06] MEDS: Atorvastatin* 10 MG TAB PO SCH (20:25)
[2017-08-07] MEDS: Insulin LISPRO* 1 UNITS UNIT SUBCUT SCH ×4 (01:04→18:10)
[2017-08-07] MEDS: metroNIDAZOLE IV 500 MG/100ML* 500 MG/100 ML BAG IVPB SCH ×2 (01:26→10:46)
[2017-08-07] MEDS: Heparin VIAL(*) 5000 UNITS/ML VIAL (FIVE THOUSAND) SUBCUT SCH ×3 (06:01→22:17)
[2017-08-07] MEDS: Levothyroxine TAB* 100 MCG TAB PO SCH (06:01)
[2017-08-07 06:16] LABS: Hematocrit 32 % (35-47); Hemoglobin 10.6 g/dl (12.0-16.0); Mean Corpuscular HGB Conc 34 g/dl (31-36); Mean Corpuscular Hemoglobin 26 pg (27-31); Mean Corpuscular Volume 79 fL (80-97); Mean Platelet Volume 8 um3 (7.4-10.4); Red Blood Count 4.02 10^6/ul (4.0-5.4); Red Cell Distribution Width 16 % (10.5-15); White Blood Count 9.2 10^3/ul (3.5-10.8)
[2017-08-07 06:18] LABS: Comments Flag Yes
[2017-08-07 06:19] LABS: Add Diff/Slide Review? Slide Review Added
[2017-08-07 06:28] LABS: Albumin 2.8 g/dL (3.2-5.2); BUN/Creatinine Ratio 13.1 (8-20); Calcium 8.7 mg/dL (8.6-10.3); EGFR African American 88.4 (>60); EGFR Non-African American 68.7 (>60); Globulin 3.2 g/dL (2-4); Potassium 3.9 mmol/L (3.5-5.0); Total Bilirubin 0.6 mg/dL (0.2-1.0)
[2017-08-07] MEDS: Multivitamins/Minerals TAB PO SCH (08:41)
[2017-08-07] MEDS: Aspirin EC Low Dose* 81 MG TAB.EC PO SCH (08:41)
[2017-08-07] MEDS: Ciprofloxacin 400MG IVPREMIX(* 400 MG/200 ML BAG IVPB SCH ×2 (08:42→20:55)
[2017-08-07] MEDS: Mometasone/Formoter 100/5 MDI INH SCH ×2 (08:42→20:46)
--- NOTE | 2017-08-07 10:53 | PN ---
Progress Note - Progress Note Date of Service: 08/07/17 Note: Surgery Progress: S: Doing well; using MS infrequently. [place] diet. + BM (semiformed). Ambulating some, but encouraged to increase. Current Medications Acetaminophen (Tylenol Tab*) 975 mg PO Q6H PRN PRN Reason: PAIN/FEVER Last Admin: 08/05/17 20:40 Dose: 975 mg Albuterol (Ventolin 2.5 Mg/3 Ml Neb.Florinda*) 2.5 mg INH Q4H PRN PRN Reason: SOB/WHEEZING Last Admin: 08/05/17 18:27 Dose: 2.5 mg Aspirin (Aspirin Ec Low Dose*) 81 mg PO DAILY [facility] Last Admin: 08/07/17 08:41 Dose: 81 mg Atorvastatin Calcium (Lipitor*) 10 mg PO BEDTIME [facility] Last Admin: 08/06/17 20:25 Dose: 10 mg Dextrose (D50w Syringe 50 Ml*) 12.5 gm IV PUSH .FOR FS < 60 - SS PRN PRN Reason: FS < 60 Heparin Sodium (Porcine) (Heparin Vial(*)) 5,000 units SUBCUT Q8HR [facility] Last Admin: 08/07/17 06:01 Dose: 5,000 units Ciprofloxacin/Dextrose (Cipro 400 Mg Ivpremix(*)) 400 mg in 200 mls @ 200 mls/ hr IVPB Q12H [facility] Last Admin: 08/07/17 08:42 Dose: 200 mls/hr Metronidazole/Sodium Chloride (Flagyl 500 Mg Ivpb*) 500 mg in 100 mls @ 100 mls /hr IVPB Q8H [facility] Last Admin: 08/07/17 01:26 Dose: 100 mls/hr Insulin Human Lispro (Humalog*) 0 units SUBCUT AC [facility] PRN Reason: Protocol Last Admin: 08/07/17 07:23 Dose: Not Given Levothyroxine Sodium (Synthroid Tab*) 100 mcg PO DAILY@0600 [facility] Last Admin: 08/07/17 06:01 Dose: 100 mcg Lorazepam (Ativan Inj*) 1 mg IV PUSH Q6H PRN PRN Reason: ANXIETY Last Admin: 08/02/17 14:10 Dose: 1 mg Mometasone Furoate/Formoterol Fumar (Dulera 100/5 Mdi*) 2 puff INH BID [facility] Last Admin: 08/07/17 08:42 Dose: 2 puff Morphine Sulfate (Morphine Inj (Syringe)*) 2 mg IV Q3H PRN PRN Reason: PAIN - SEVERE Morphine Sulfate (Morphine Inj (Syringe)*) 1 mg IV Q2H PRN PRN Reason: PAIN - MODERATE Last Admin: 08/06/17 22:02 Dose: 1 mg Multivitamins/Minerals (Theragran/Minerals Tab*) 1 tab PO DAILY [facility] Last Admin: 08/07/17 08:41 Dose: 1 tab Ondansetron HCl (Zofran Inj*) 4 mg IV Q6H PRN PRN Reason: NAUSEA Last Admin: 08/03/17 15:55 Dose: 4 mg O: Vital Signs - 8 hr 08/07/17 08/07/17 04:44 07:44 Temperature 98.2 F Pulse Rate 72 Respiratory 18 18 Rate Blood Pressure 143/85 (mmHg) O2 Sat by Pulse 98 Oximetry Intake and Output Last 24 Hours 08/05/17 08/06/17 08/07/17 08/08/17 06:59 06:59 06:59 06:59 Intake Total 2288 1711 3554 Output Total 474 482 2641 225 Balance 2038 1136 1954 -225 Intake: IV Fluids 8 1191 1483 ABX - CIPROFLOXACIN 200 D5W 1/2 NS 20 meq KCL 1957 1191 1483 IVPB 205 315 ABX - CIPROFLOXACIN 205 200 Flagyl 115 Oral 684 665 0793 Output: Pigtail Drain 275 200 Urine 141 809 8565 225 Other: Estimated Void Medium # Bowel Movements 0 0 # Voids 2 1 PE: Gen: WN, morbidly obese, in NAD Heart: reg Lungs: clear ant Abd: dark, clear bile in drainage bag; soft; moderate tenderness RUQ; remainder soft, nontender Labs: Laboratory Tests 08/04/17 08/06/17 08/06/17 06:10 05:47 12:32 WBC Hgb Glucose POC Glucose (mg/dL) 168 H 122 H AST 79 H ALT 76 H Alkaline Phosphatase 215 H Albumin 08/06/17 08/07/17 08/07/17 18:30 05:29 05:29 WBC 9.2 Hgb 10.6 L Glucose 121 H POC Glucose (mg/dL) 170 H AST 72 H ALT 74 H Alkaline Phosphatase 201 H Albumin 2.8 L blood cultures noted (Enterobacter cloacae) sensitive to Cipro; same results for bile culture A: acute calculous cholecystitis, s/p perc drain, improving on IV Cipro/Flagyl P: abx per hosp; could be d/c'd to home when abx changed to po, w/ drain (? 08/08)
[2017-08-07] MEDS: Acetaminophen TAB* 325 MG PO PRN (12:08)
--- NOTE | 2017-08-07 17:31 | PN ---
Subjective Date of Service: 08/07/17 Interval History: Feels well, eating meatballs for lunch, denies abd pain Family History: Unchanged from Admission Social History: Unchanged from Admission Past Medical History: Unchanged from Admission Objective Active Medications: Acetaminophen (Tylenol Tab*) 975 mg PO Q6H PRN PRN Reason: PAIN/FEVER Last Admin: 08/07/17 12:08 Dose: 975 mg Albuterol (Ventolin 2.5 Mg/3 Ml Neb.Florinda*) 2.5 mg INH Q4H PRN PRN Reason: SOB/WHEEZING Last Admin: 08/05/17 18:27 Dose: 2.5 mg Aspirin (Aspirin Ec Low Dose*) 81 mg PO DAILY [facility] Last Admin: 08/07/17 08:41 Dose: 81 mg Atorvastatin Calcium (Lipitor*) 10 mg PO BEDTIME [facility] Last Admin: 08/06/17 20:25 Dose: 10 mg Dextrose (D50w Syringe 50 Ml*) 12.5 gm IV PUSH .FOR FS < 60 - SS PRN PRN Reason: FS < 60 Heparin Sodium (Porcine) (Heparin Vial(*)) 5,000 units SUBCUT Q8HR [facility] Last Admin: 08/07/17 13:56 Dose: 5,000 units Ciprofloxacin/Dextrose (Cipro 400 Mg Ivpremix(*)) 400 mg in 200 mls @ 200 mls/ hr IVPB Q12H [facility] Last Admin: 08/07/17 08:42 Dose: 200 mls/hr Insulin Human Lispro (Humalog*) 0 units SUBCUT AC [facility] PRN Reason: Protocol Last Admin: 08/07/17 12:26 Dose: 2 unit Levothyroxine Sodium (Synthroid Tab*) 100 mcg PO DAILY@0600 [facility] Last Admin: 08/07/17 06:01 Dose: 100 mcg Lorazepam (Ativan Inj*) 1 mg IV PUSH Q6H PRN PRN Reason: ANXIETY Last Admin: 08/02/17 14:10 Dose: 1 mg Mometasone Furoate/Formoterol Fumar (Dulera 100/5 Mdi*) 2 puff INH BID [facility] Last Admin: 08/07/17 08:42 Dose: 2 puff Morphine Sulfate (Morphine Inj (Syringe)*) 2 mg IV Q3H PRN PRN Reason: PAIN - SEVERE Morphine Sulfate (Morphine Inj (Syringe)*) 1 mg IV Q2H PRN PRN Reason: PAIN - MODERATE Last Admin: 08/06/17 22:02 Dose: 1 mg Multivitamins/Minerals (Theragran/Minerals Tab*) 1 tab PO DAILY [facility] Last Admin: 08/07/17 08:41 Dose: 1 tab Ondansetron HCl (Zofran Inj*) 4 mg IV Q6H PRN PRN Reason: NAUSEA Last Admin: 08/03/17 15:55 Dose: 4 mg Vital Signs 08/06/17 08/06/17 08/06/17 19:30 20:38 20:42 Temperature 98.6 F Pulse Rate 60 73 Respiratory 18 17 Rate Blood Pressure 136/109 126/83 (mmHg) O2 Sat by Pulse 91 96 Oximetry 08/06/17 08/06/17 08/07/17 22:02 23:02 00:05 Temperature 98.1 F Pulse Rate 73 Respiratory 18 18 18 Rate Blood Pressure 130/78 (mmHg) O2 Sat by Pulse 98 Oximetry 08/07/17 08/07/17 08/07/17 04:44 07:44 08:09 Temperature 98.2 F 98.7 F Pulse Rate 72 67 Respiratory 18 18 16 Rate Blood Pressure 143/85 136/82 (mmHg) O2 Sat by Pulse 98 97 Oximetry 08/07/17 08/07/17 08/07/17 11:28 12:09 15:37 Temperature 97.6 F 98.0 F Pulse Rate 72 72 61 Respiratory 18 19 Rate Blood Pressure 148/69 118/71 (mmHg) O2 Sat by Pulse 98 95 96 Oximetry Oxygen Devices in Use Now: None Appearance: 62 yo F in nAD, aAOx3, obese Eyes: No Scleral Icterus, PERRLA Ears/Nose/Mouth/Throat: NL Teeth, Lips, Gums, Mucous Membranes Moist Neck: NL Appearance and Movements; NL JVP, Trachea Midline Respiratory: Symmetrical Chest Expansion and Respiratory Effort, Clear to Auscultation Cardiovascular: NL Sounds; No Murmurs; No JVD, RRR Abdominal: NL Sounds; No Tenderness; No Distention, - - drain present in RUQ draining bile Lymphatic: No Cervical Adenopathy Extremities: No Edema, No Clubbing, Cyanosis Skin: No Rash or Ulcers, No Nodules or Sclerosis Neurological: Alert and Oriented x 3, NL Muscle Strength and Tone Result Diagrams: 08/07/17 05:29 08/07/17 05:29 Microbiology and Other Data: Microbiology 08/01/17 11:57 Aerobic Blood Culture - Final Blood Venous Not Reportable Anaerobic Blood Culture - Final Not Reportable Blood Culture - Preliminary 08/01/17 11:00 Influenza Types A,B Antigen (DOLORES) - Final Nasal Specimen received for Influenza A/B Molecular testing Assess/Plan/Problems-Billing Assessment: Sepsis 2/2 acute cholecystitis, bacteremia in a 62 yo F with hx of HTN, HLD, DM , morbid obesity - Patient Problems (1) Acute cholecystitis Comment: Sepsis. Enterobacter in BCx, sensitive to Cipro. d/c metronidazole. S /P cholecystostomy tube 08/05/17. Drainage grew E. faecalis (2) Chest pain Comment: Resolved, likely it was abd pain. NST with what appears to be reversible area in anterior wall, on review had similar finding on prior NST with subsequent normal cath. Findings were d/w Dr. Gordon compared the two studies and saw no new changes, felt this may be breast artifact. Unlikely to be cardiac cause. ASA and statin for primary prevention. (3) Diabetes Comment: cont ISS Metformin on hold. (4) MEL (acute kidney injury) Comment: 2/2 sepsis. Resolved (5) HLD (hyperlipidemia) Comment: Continue Atorvastatin (6) HTN (hypertension) Comment: Holding home Lisinopril, HCTZ controlled (7) Hypothyroidism Comment: TSH add on 2.54 on 08/04/17. Continue home dose levothyroxine. (8) DVT prophylaxis Comment: HSQ Status and Disposition: Inpatient for acute cholecystitis, may be able to go home 08/08
[2017-08-07] MEDS: Atorvastatin* 10 MG TAB PO SCH (20:54)
[2017-08-08] MEDS: Levothyroxine TAB* 100 MCG TAB PO SCH (05:50)
[2017-08-08] MEDS: Heparin VIAL(*) 5000 UNITS/ML VIAL (FIVE THOUSAND) SUBCUT SCH ×2 (05:51→14:30)
[2017-08-08] MEDS: Insulin LISPRO* 1 UNITS UNIT SUBCUT SCH ×3 (09:19→17:26)
[2017-08-08] MEDS: Aspirin EC Low Dose* 81 MG TAB.EC PO SCH (09:20)
[2017-08-08] MEDS: Mometasone/Formoter 100/5 MDI INH SCH (09:20)
[2017-08-08] MEDS: Multivitamins/Minerals TAB PO SCH (09:20)
--- NOTE | 2017-08-08 09:36 | PN ---
Progress Note - Progress Note Date of Service: 08/08/17 SOAP: Subjective: Reports feeling much better, eating breakfast. Denies abdominal pain, nausea or vomiting. No fever or chills. Wants to go home today. Objective: Awake and alert, sitting on chair. VSS, afebrile Lungs CTA bilat. Heart RRR, no murmurs Abdomen round and obese, NT, ND. Area of ecchymosis from subQ injections. Cholecystotomy tube patent and intact, with approx 20 cc bilious output noted. No guarding, rigidity or rebound. Ext. without edema Assessment: A 62 y/o female with resolving bacteremia secondary to cholecystitis, doing well Plan: Switch Cipro IV to PO Home nurse visits to educate patient about Cholecystotomy drain care. PO Cipro for additional 7-10 days F/U with Dr. Burleson at [facility] office on Friday08/12/17 at 10: 15 AM, appointment made already.
[2017-08-08] MEDS ORDERED: Ciprofloxacin TAB* 500 MG PO SCH (10:00)
[2017-08-08] MEDS: Ciprofloxacin 400MG IVPREMIX(* 400 MG/200 ML BAG IVPB SCH (10:23)
[2017-08-08 12:33] VITALS: BP 139/81
--- NOTE | 2017-08-09 06:29 | DS ---
CC: Dr. Yin; Dr. Burleson; Dr. Patrick. DISCHARGE SUMMARY: DATE OF ADMISSION: 07/30/17 DATE OF DISCHARGE: 08/08/17 PRIMARY CARE PROVIDER: Dr. Yin. DISCHARGE DIAGNOSES: Chest, abdomen and back pain due to acute cholecystitis with cholelithiasis, s tatus post percutaneous cholecystectomy performed by Dr. Peralta on 08/05/17. SECONDARY DIAGNOSES: 1. Acute kidney injury most likely due to dehydration and ongoing infection that resolved. 2. History of obesity. 3. History of diabetes type 2. 4. History of hypertension. 5. History of hypothyroidism. MEDICATIONS AT DISCHARGE: Include: 1. Ciprofloxacin 500 mg p.o. b.i.d. for a total of 14 days. 2. Aspirin 81 mg daily. 3. Synthroid 100 mcg daily. 4. Lisinopril/hydrochlorothiazide 20/25 one tablet daily. 5. Multivitamin 1 tablet daily. 6. Simvastatin 20 mg at bedtime. 7. Metformin 500 mg b.i.d. CONSULTATIONS DURING THE HOSPITAL STAY: Included Dr. Burleson from Surgery. LABORATORY DATA AND STUDIES PERFORMED DURING THE HOSPITAL STAY: Included: On 08/07/17 sodium of 138, potassium 3.9, chloride 105, carbon dioxide 27, BUN 11, creatinine 0.84. Liver function tests showed AST of 72, ALT of 74, alkaline phosphatase of 201. Lipase last noted o n 07/30/17 was 33. The patient's LFTs peaked on 08/04/17 with AST of 79, ALT of 76, and alkaline phosphatase of 215. T he patient's troponins had been checked and in the range of 0 to 0.01 throughout hospital stay. Creatinine peaked at 1.43 on 08/02/17. Influenza test was negative on 08/01/17. The patient underwent a cardiac stress test on 07/31/17 and the nuclear images were read as "small t o moderate partial reversible artifact of the distal anterior wall." Please also note that the find ings were discussed with Dr. Charles Gordon, supervisory civil engineer, who noted that the findings were similar to a stress test that was performed in the past and followed by subsequent normal cardiac catheterizat ion. At that point, aspirin and statin was recommended for primary prevention. Abdomen and pelvis CT obtained on 08/01/17. Impression: There is a gallbladder and gallbladder wal l thickening and pericholecystic fluid, suggestive of cholecystitis, although no calcified gallstone s are noted. There is a left adrenal mass measuring up to 3.3 cm which is unchanged from previous e xam. Bibasilar atelectasis is noted. Hepatic steatosis is noted. The exam was compared to 7 CT. Gallbladder ultrasound obtained on the same day. Impression: "Cholelithiasis and findings suggesti ve of acute cholecystitis. Hepatomegaly and hepatic steatosis." HIDA scan obtained on 08/05/17. Impression: Scintigraphic imaging of hepatobiliary system both bef ore and after the administration of IV morphine indicate cystic bile duct obstruction. There is a q uestionable small biliary leak with radiotracer tracing along the medial margin of the left lobe of the liver." Transthoracic echocardiogram obtained on 08/03/17 showed EF of 50% to 55% with subtle focal wall mot ion abnormality that cannot be excluded. HOSPITALIZATION COURSE: Michelle Don is a 62-year-old morbid obese female with a BMI of 48 who pres ented to the hospital complaining of abdominal pain and chest pain. Initially, it was felt to be ca rdiac related and due to that a cardiac stress test was obtained on 07/31/17, which showed basically unchanged evaluation from prior noted in 2012 which was followed by a normal cardiac cath at that p oint. Furthermore, the patient was noted to have elevated liver function tests and continuation of right u pper quadrant abdominal pain. Evaluation with a HIDA scan showed cholelithiasis and cystic bile cy t obstruction. Surgery was consulted for evaluation of acute cholecystitis. At that point, the pat ient was treated with antibiotics including metronidazole and ciprofloxacin. Dr. Burleson recommen ded an interventional radiology procedure with cholecystogram and cholecystotomy tube placement and that was performed by Dr. Peralta on 08/05/17. Post tube placement, the patient did very well. She is still draining a significant amount of bile. By the time of discharge, the patient's microbiolog y studies came back and both blood cultures as well as bloody fluid cultures from the cholecystotomy were positive for Enterobacter cloacae that is sensitive to ciprofloxacin. At that point, metronid azole was discontinued, the patient was continued on ciprofloxacin. Unfortunately, prior to the rafael ent's discharge our infectious disease legal nurse consultant was not available. At this point, we will plan fo r 2 weeks' treatment of ciprofloxacin orally. Our request for the patient to make a followup appoin tment with Dr. Patrick from Infectious Diseases in regards to further recommendations of treatment of Enterobacter bacteremia. In regards to the patient's acute cholecystitis, the patient is being discharged with cholecystotomy tube in place. She was taught how to use and drain it and record the drainage amount by a nurse pr ior to discharge. Dr. Burleson is going to see the patient on 08/11/17 with a scheduled appointmen t for followup. In the nearest future, the patient will require a cholecystectomy. By the time of discharge, the patient was tolerating low-fat diet, complained of no abdominal pain. Also recommendation to follow up with her primary care provider in approximately 4 to 7 days. PHYSICAL EXAMINATION: At the time of discharge, blood pressure 139/81, heart rate of 66 and regular , respiratory rate 18, oxygen saturation 95% on room air, and temp is 98.3. General: The patient i s a very pleasant 62-year-old obese female who is in no acute distress, alert, awake, and oriented x 3. HEENT: Head atraumatic and normocephalic. Eyes, pupils are equal, round, and reactive to light and accommodation. Oropharynx clear. Mucosa moist. Neck: Supple, no JVD, no bruits bilaterally. Cardiovascular: Regular, rate, and rhythm. No murmur. Respiratory: Clear to auscultation bilate rally. Abdomen: Obese, protuberant, soft, and nontender. Bowel sounds are present in all 4 quadra nts. Cholecystotomy tube in place in the right upper quadrant draining bile. Extremities: Just +1 pitting pedal edema, pulses +2 bilaterally. There is no clubbing or cyanosis. Neuro Evaluation: Speech clear. Cranial nerves II through XII grossly intact. Motor strength is 5/5 bilaterally. On evaluation of the skin, no ecchymotic areas or rashes noted. The tube insertion in the right upper quadrant of the patient's abdomen showed no evidence of infection. Please note that this is a short summary of the patient's hospital stay, please refer to further [facility] records for details. TIME SPENT: Approximately 45 minutes were spent on the patient's discharge. [id number]/[facility] #: [id number]
== END 2017-08-08 18:10 | disposition home or self-care (01) | DRG 872 ==
LOC: ED 19:39 → MEDTELE 23:27 → OBSVTOIN 07-31 17:09 → MED 08-01 20:23 → ICU 08-02 02:21 → SSU 08-04 10:07
PROVIDERS: ADMIT Hospitalist; ATTEND Internal Medicine
PROC: 4A12XM4 Monitoring of Cardiac Stress, External Approach (ICD-10-PCS; principal; 2017-07-31)
PROC: 0F9430Z Drainage of Gallbladder with Drainage Device, Percutaneous Approach (ICD-10-PCS; 2017-08-05)
DX: A41.59 Other Gram-negative sepsis (principal); N17.9 Acute kidney failure, unspecified; E27.8 Other specified disorders of adrenal gland; K80.00 Calculus of gallbladder with acute cholecystitis without obstruction; I10 Essential (primary) hypertension; D56.9 Thalassemia, unspecified; E11.9 Type 2 diabetes mellitus without complications; K76.0 Fatty (change of) liver, not elsewhere classified; Z68.42 Body mass index [BMI] 45.0-49.9, adult; J98.11 Atelectasis; E86.0 Dehydration; R07.9 Chest pain, unspecified; E66.01 Morbid (severe) obesity due to excess calories; E03.9 Hypothyroidism, unspecified; Z82.49 Family history of ischemic heart disease and other diseases of the circulatory system; Z88.8 Allergy status to other drugs, medicaments and biological substances; J45.909 Unspecified asthma, uncomplicated; E78.5 Hyperlipidemia, unspecified; R68.89 Other general symptoms and signs; Y95 Nosocomial condition; R06.00 Dyspnea, unspecified; R09.02 Hypoxemia; Z79.82 Long term (current) use of aspirin; Z79.84 Long term (current) use of oral hypoglycemic drugs
CPT/HCPCS: 36415; 36600; 47490; 71010; 74176; 76705; 78226; 78452; 80048; 80053; 80061; 80076; 82553; 82803; 83036; 83690; 83735; 84145; 84443; 84484; 85025; 85060; 85379; 85610; 85730; 87040; 87070; 87077; 87186; 87205; 87502; 93005; 93017; 93306; 94640; 94760; 99156; 99157; A9270-GY; A9502; A9537; C1769; C2613; J0280; J0744; J1644; J2060; J2250; J2270; J2405; J2543; J2785; J3010; J3370; Q9967

== ENCOUNTER 2018-04-17 14:46 | Emergency (ER) | payer MEDICARE, MEDICAID ==
--- OUTSIDE RECORDS SUMMARY | 2018-04-17 15:20 | XMS REPORT ---
:1955 External Reference #:[id number] Author Organization [employer] Address [address] [facility] [address] [place] [address] Phone [phone] Care Team Providers Name Role Phone Brendan Yin MD Primary Care Physician Unavailable Payers Type Date Identification Numbers Payment Provider Subscriber Medicare Primary Policy Number: [id number] Medicare Michelle Don PayID: [id number] [address] [place] [address] Medigap Part B Policy Number: [id number] Medicaid Michelle Don Group Name: 1 1 [address] PayID: [id number] [place] [address] Workers Compensation Onset: 2010 Policy Number: Xcbalbir [id number] Group Number: [id number] [address] PayID: [id number] [place] [address] Workers Compensation Onset: 2010 Policy Number: xcluis eging/ortho Michelle Don [id number] PayID: [id number] [address] [place] [address] Problems Date Description Provider Status Onset: 07/22/2012 Electrocardiogram abnormal Jose R Moreno M.D. Active Onset: 07/22/2012 Chest pain Jose R Moreno M.D. Active Onset: 07/22/2012 Essential hypertension Jose R Moreno M.D. Active Onset: 07/22/2012 Dyspnea Jose R Moreno M.D. Active Onset: 07/29/2012 Tachycardia Tg Tuttle N.P. Active Onset: 03/04/2017 Disturbance in sleep behavior Pricila Perkins MD Active Onset: 04/15/2017 Obstructive sleep apnea syndrome Yamilet Moy DNP, RN, Active [employer] Onset: 04/15/2017 Obesity Yamilet Moy DNP, RN, Active [employer] Family History Date Family Member(s) Problem(s) Comments Father Heart Disease Mother Diabetes, Insulin Dependent Mother Cancer, Lung Mother Cancer Thyroid Mother Heart Disease First Daughter Mental Illness borderline personality disorder and schizoaffective disorder. Siblings 3 All have DM Brother w/melanoma Sister w/stroke Also 2 1/2 siblings First Sister Diabetes, Insulin Dependent Second Sister Diabetes, Insulin Dependent : (age Maternal Grandfather due to Heart 29 Years) Disease : (age Maternal Grandmother due to Heart 40 Years) Disease Social History Type Date Description Comments Marital Status Lives With Alone Occupation Disabled ETOH Use Denies alcohol use Smoking Patient has never smoked Recreational Drug Use Denies Drug Use Daily Caffeine Coffee once in a while Exercise Type/Frequency Exercises regularly Walks General Hx Text 2 children Allergies, Adverse Reactions, Alerts Date Description Reaction Status Severity Comments 07/21/2012 Darvocet active itchy 07/21/2012 Latex active itchy 03/04/2017 Lyrica active pass out Medications Medication Date Status Form Strength Qnty SIG Indications Ordering Provider Metformin HCL 03/03/ Active Tablets 500mg 1 by mouth Unknown 2017 twice a day Simvastatin 03/03/ Active Tablets 20mg 1 by mouth Unknown 2017 every day Lisinopril-Hydr 03/03/ Active Tablets 20-25mg 1 by mouth Unknown ochlorothiazide 2017 every day Vitamin D3 03/03/ Active Capsules 2000Unit take one Unknown Super Strength 2017 capsule/ daily by mouth Multivitamin 03/03/ Active Tablets 1 by mouth Unknown Adult 2017 every day Vitamin B12 03/03/ Active Tablets ER 1000mcg 1 by mouth Unknown 2017 every day Levothyroxine / Active Tablets 100mcg 30tab 1 po qd Unknown Sodium 0000 s Dulera / Active Aerosol 200-5mcg/A [address] twice a day Albuterol / Active Nebulizer (2.5mg/3ML 1 vial via Unknown Sulfate 0000 ) 0.083% nebulizer 4 times daily as needed Proair HFA / Active Aerosol 108(90Base 2 puffs by Unknown 0000 ) mcg/Act mouth twice a day Fluticasone / Active Suspension 50mcg/Act as Mio, Propionate 0000 directed Zaheer, N.P. Ipratropium / Active Solution 0.06% Mio, [place] 0000 Zaheer, N.P. Vitamin C / Active Tablets 500mg 1 by mouth Unknown 0000 every day Deep Sea 03/03/ Hx as Unknown 2017 - directed 2016 Eye Vision 03/03/ Hx as Unknown 2017 directed Tenormin 07/29/ Hx Tablets 25mg 30tab 1 po daily Tg 2011 - (night) Parmenter 03/03/ , N.P. 2016 Lisinopril/H / Hx Tablets 10mg 90tab 1 po qd Unknown 0000 - s 2016 Hydrocodone/Blaze / Hx Tablets 5-325mg 1 tab po Unknown taminophen 0000 - bid prn 03/03/ pain 2017 Soma / Hx Tablets 350mg 4 times a Unknown 0000 - day as 03/03/ needed for 2016 pain Ibuprofen / Hx Tablets 600mg 120ta 1 po tid Unknown 0000 - bs prn 2016 Aspirin / Hx Tablets 81mg 90tab 1 po qd Unknown 0000 - s 2016 Ciprofloxacin / Hx Tablets 500mg 1 tab by Unknown HCL 0000 mouth twice a day Vital Signs Date Vital Result Comment 03/24/2018 Weight 290.00 lb Heart Rate 90 /min BP Systolic Sitting 112 mmHg BP Diastolic Sitting 70 mmHg Respiratory Rate 18 /min Body Temperature 97.7 F 12/23/2017 Height 68 inches 5'8" Weight 298.00 lb Heart Rate 76 /min BP Systolic 136 mmHg BP Diastolic 90 mmHg Respiratory Rate 18 /min Body Temperature 96.7 F BMI (Body Mass Index) 45.3 kg/m2 10/21/2017 Heart Rate 60 /min Respiratory Rate 16 /min Body Temperature 98.0 F 09/17/2017 Heart Rate 96 /min BP Systolic 122 mmHg BP Diastolic 78 mmHg Respiratory Rate 18 /min Body Temperature 97.2 F 09/16/2017 Height 68 inches 5'8" Weight 298.00 lb Heart Rate 92 /min BP Systolic Sitting 118 mmHg BP Diastolic Sitting 88 mmHg Respiratory Rate 14 /min Body Temperature 98.2 F BMI (Body Mass Index) 45.3 kg/m2 09/08/2017 Heart Rate 96 /min Respiratory Rate 20 /min Body Temperature 98.9 F 09/03/2017 Heart Rate 72 /min BP Systolic 122 mmHg BP Diastolic 80 mmHg Respiratory Rate 18 /min Body Temperature 98.4 F 08/19/2017 Heart Rate 90 /min BP Systolic 118 mmHg BP Diastolic 80 mmHg Respiratory Rate 20 /min Body Temperature 97.8 F 08/12/2017 Heart Rate 78 /min BP Systolic 118 mmHg BP Diastolic 82 mmHg Respiratory Rate 18 /min Body Temperature 98.9 F 06/06/2017 Height 68 inches 5'8" Weight 309.00 lb Heart Rate 104 /min BP Systolic Sitting 120 mmHg BP Diastolic Sitting 86 mmHg Respiratory Rate 20 /min O2 % BldC Oximetry 96 % room air BMI (Body Mass Index) 47.0 kg/m2 04/15/2017 Height 68 inches 5'8" Weight 300.00 lb Heart Rate 107 /min BP Systolic Sitting 136 mmHg BP Diastolic Sitting 84 mmHg Respiratory Rate 18 /min O2 % BldC Oximetry 93 % BMI (Body Mass Index) 45.6 kg/m2 03/04/2017 Height 68 inches 5'8" Weight 300.00 lb Heart Rate 103 /min BP Systolic Sitting 146 mmHg BP Diastolic Sitting 84 mmHg Respiratory Rate 18 /min O2 % BldC Oximetry 95 % BMI (Body Mass Index) 45.6 kg/m2 Neck Circumference in inches 18 07/29/2012 Height 69 inches 5'9" Weight 290.25 lb Heart Rate 100 /min BP Systolic Sitting 140 mmHg BP Diastolic Sitting 100 mmHg BMI (Body Mass Index) 42.9 kg/m2 07/22/2012 Height 69 inches 5'9" Weight 290.00 lb Heart Rate 90 /min BP Systolic 142 mmHg BP Diastolic 90 mmHg BMI (Body Mass Index) 42.8 kg/m2 Results Test Date Test Result H/L Range Note Order 09/04/2017 Sleep Study <pending> Cath Panel 07/22/2012 PTT (Aptt) 26.6 SEC 25.1-38.5 1 CBC With Manual Diff 07/22/2012 White Blood Count 5.2 CUMM 4.8-10.8 1 Red Cell Count 5.21 CUMM 4.2-5.4 1 Hemoglobin 14.4 g/dL 12.0-16.0 1 Hematocrit 42 % 35-47 1 Mean Corpuscular Volume 81 um3 79-97 1 Mean Corpuscular Hemoglob 28 pg 27-31 1 Mean Corpuscular HGB Cone 34 g/dL 32-36 1 Redcell Distribution WDTH 15 % 10.5-15 1 Platelet Count 192 CUMM 150-450 1 Mean Platelet Volume 8.2 um3 7.4-10.4 1 Absolute Neutrophil Count 3.3 1.5-7.7 1 Polysegmented Neutrophil 60 % 38-83 1 Band Neutrophil 1 % 0-8 1 Lymphocyte 26 % 25-47 1 Monocyte 12 % 0-13 1 Eosinophil 1 % 0-6 1 RBC Morphology NORMAL 1 Basic Metabolic Panel 07/22/2012 Sodium 141 mmol/L 135-145 1 Potassium 4.5 mmol/L 3.5-5.0 1 Chloride 108 mmol/L 101-111 1 Co2 (Carbon Dioxide) 28.0 mmol/L 22-32 1 Anion Gap 5.0 mmol/L 2-11 1, 2 Glucose 97 mg/dL 70-100 1 BUN 16 mg/dL 6-24 1 Creatinine 1.1 mg/dL 0.50-1.40 1 One Over Creatinine 0.90 1 BUN/Creatinine Ratio 14.5 8-20 1 Calcium 9.6 mg/dL 8.1-9.9 1 eGFR Non- 51.2 > 60 1 eGFR 65.8 > 60 1, 3 Protime 07/22/2012 Inr 0.94 0.88-1.13 1, 4 Protime 11.1 SEC 10.3-13.5 1, [address] MORENO AT FAX NUMBER [phone] 2 Anion gap measurement may be of limited value in the presence of any alkalosis, especially in a combined acid base disorder. . 3 Because ethnic data is not always readily available, this report includes an eGFR for both -Americans and non- Americans. The National Kidney Disease Education Program (NKDEP) does not endorse the use of the MDRD equation for patients that are not between the ages of 18 and 70, are , have extremes of body size, muscle mass, or nutritional status, or are non- or non-. According to the National Kidney Foundation, irrespective of diagnosis, the stage of the disease is based on the level of kidney function: Stage Description GFR(mL/min/1.73 m(2)) 1 Kidney damage with normal or decreased GFR 90 2 Kidney damage with mild decrease in GFR 60-89 3 Moderate decrease in GFR 30-59 4 Severe decrease in GFR 15-29 5 Kidney failure <15 (or dialysis) 4 Recommended INR for Patients on Oral Anticoagulants Prophylaxis 2.0 - 3.0 Treatment of thrombosis 2.0 - 3.0 Prevention of embolism 2.0 - 3.0 Prevention of embolism from prosthetic heart valves 2.5 - 3.5 5 DIAGNOSIS,TREATMENT,AND THERAPY MUST BE BASED ON THE INR VALUE ALONE. Procedures Date CPT Code Description Status 08/04/2017 83042 ECHO Transthorasic Realtime 2D W Doppler & Color Completed Flow Hosp 08/02/2017 42108 EKG, Interpretation Only Completed 07/31/2017 84858 Treadmill Interp/Report Only Completed 07/31/2017 92307 Stress Test Supervsn W/Out I/R Completed 03/31/2017 05004 Polysomnography Sleep Staging 4+ Parameters Completed 07/23/2012 92636 Left Heart Cath. Incl S/I Coronaries, Angio S/I V Gram Completed If Done 07/23/2012 37725 Cath PLMT&NJX L Ventriculog Img S&I Completed 07/22/2012 86555 EKG Tracing & Interpretation Completed 06/27/2012 00678 Treadmill Interp/Report Only Completed 06/27/2012 77675 Stress Test Supervsn W/Out I/R Completed 06/27/2012 85183 EKG, Interpretation Only Completed 11/08/2010 97242 Rad Exam; Hip Unilat Completed 11/08/2010 66120 Rad Exam; Pelvis Completed Encounters Type Date Location Provider CPT E/M Dx Office Visit 12/23/2017 [facility], 69666 K80.13 11:30a Carl MILLER Office Visit 10/21/2017 [facility] 36794 K80.13 9:30a Carl MILLER Office Visit 09/17/2017 [facility] 58108 K80.13 2:15p [facility] 25280 B96.89 9:30a Infectious Diseases Alicia Forte K80.13 Office Visit 09/08/2017 2:15p [facility], 52814 K81.0 Of Carl TERRY Z48.01 Office Visit 09/03/2017 1:45p [facility], 86886 K81.0 Carl MILLER Office Visit 08/19/2017 10:15a [facility], 21342 K81.0 Engine Dynamometer Tester Office Visit 08/12/2017 10:15a [facility], 52195 K81.0 Carl MILLER Office Visit 08/08/2017 8:02a [facility] Sandhya Overton M.D. 34847 K81.0 Assoc,pc Hospitalists E03.9 R11.2 A41.9 Office Visit 08/08/2017 7:00a [facility] MARA Zuniga 73705 K81.0 Of Carl R78.81 Office Visit 08/07/2017 7:00a [facility] Caleb Mcmullen, 49401 K80.00 Of Carl TERRY Office Visit 08/07/2017 8:02a [facility] Sandhya Overton M.D. 27654 K81.0 Assoc,pc Hospitalists R11.2 E03.9 A41.9 Office Visit 08/06/2017 7:47a [facility] Assoc,nati Sultana 78011 K81.0 Hospitalists MDebbiDDebbi R11.2 A41.9 E03.9 Office Visit 08/06/2017 7:00a [facility] 85289 K80.00 Of Carl MILLER R50.9 Office Visit 08/05/2017 7:46a [facility] Assoc,nati Sultana 22371 K81.0 Hospitalists M.D. R11.2 E03.9 A41.9 Office Visit 08/05/2017 7:00a [facility], 85900 K80.00 Of Carl MILLER R50.9 Office Visit 08/04/2017 7:46a [facility],pc Timothy Sultana, 27082 E03.9 Hospitalists Alicia K81.0 R11.2 Office Visit 08/04/2017 7:00a [facility] KoryDebbi [facility], 17525 K80.13 [facility] Office Visit 08/03/2017 7:45a [facility] [place] [address] E03.9 Assoc,pc Hospitalists K81.0 R11.2 Office Visit 08/02/2017 7:00a [facility], 91633 K80.00 [facility] Office Visit 08/02/2017 7:44a [facility] [place] [address] K81.0 Assoc,pc Hospitalists R78.81 E03.9 Office Visit 08/01/2017 7:21a [facility], [place] [address] R11.2 Hospitalists R68.89 E11.9 E03.9 Office Visit 07/31/2017 7:21a [facility], [place] [address] R07.89 Hospitalists E03.9 E11.9 E78.5 Office Visit 07/30/2017 7:20a [facility], Hector Tan M.D. 83684 R07.89 Hospitalists E11.9 E03.9 E78.5 Office Visit 06/06/2017 10:30a [facility] Yamilet Moy, 37528 G47.33 Services Of [facility] MIKE COSTA, [facility] F40.240 F50.81 E66.01 Z68.42 Office Visit 04/15/2017 9:30a [facility] Yamilet Moy, 34139 G47.33 [facility]KE COSTA, [facility] F40.240 E66.01 Z68.42 Office Visit 03/04/2017 11:00a [facility] [place] [address] R06.83 [facility] R51 R68.2 R40.0 E66.01 Z68.42 Office Visit 07/29/2012 2:00p [facility] Tg Tuttle, N.P. 60673 401.9 401.9 785.0 785.0 Office Visit 07/22/2012 2:20p [facility] Jose R Moreno, 93762 794.31 M.D. 786.50 401.9 786.05 Office Visit 02/06/2011 9:45a [facility], 39806 724.2 Engine Dynamometer Tester M.D. Office Visit 11/08/2010 3:45p [facility]redondo, 32689 724.3 C.Young Vargas 724.2 Office Visit 11/01/2010 1:30p [facility], 76654 726.5 Engine Dynamometer Tester M.D. Office Visit 09/27/2010 2:00p [facility], 83335 847.2 Engine Dynamometer Tester M.D. Office Visit 08/30/2010 1:30p [facility], 27106 846.0 Engine Dynamometer Tester M.D. Office Visit 08/13/2010 10:00a [facility], 31407 847.2 Engine Dynamometer Tester M.D. 847.2 Office Visit 07/26/2010 9:00a [facility], 08978 847.2 Engine Dynamometer Tester M.D. 847.2 Plan of Care Future Appointment(s):05/26/2018 9:00 am - [facility] MD at [facility]03/24/2018 - [facility] MDK80.13 Calculus of GB w acute and chronic cholecyst w obstruction
[2018-04-17] MEDS ORDERED: Ketorolac INJ* 30 MG/ML 1 ML VIAL IM ONE (17:54)
[2018-04-17] MEDS ORDERED: Cyclobenzaprine TAB* 10 MG PO ONE (17:54)
--- NOTE | 2018-04-17 17:56 | ED ---
Back Pain - HPI Summary HPI Summary: 63F presents with back pain for 2 days. She states she has history of back pain similar location. She has been taking naproxen with limited relief. She denies any new injury. She denies any saddle anesthesia or loss of bowel or bladder. She has pain occasionally goes down to left leg. She denies any weakness. She still able to ambulate. She denies any fevers. She denies any history of IV drug use. She denies any urinary symptoms. Pain is worse with movement. She has been placing heat on the area. She has not followed up with her primary about such. - History of Current Complaint Chief Complaint: EDBackInjuryPain Stated Complaint: BACK PAIN Time Seen by Provider: 04/17/18 17:43 Pain Intensity: 8 - Allergies/Home Medications Allergies/Adverse Reactions: Allergies Allergy/AdvReac Type Severity Reaction Status Date / Time acetaminophen Allergy Itching Verified 04/17/18 14:52 [From Darvocet-N] latex Allergy Rash Verified 04/17/18 14:52 pregabalin [From Lyrica] Allergy See Comment Verified 04/17/18 14:52 propoxyphene Allergy Itching Verified 04/17/18 14:52 [From Darvocet-N] PMH/Surg Hx/FS Hx/Imm Hx Endocrine/Hematology History: Reports: Hx Thyroid Disease, Other Endocrine/ Hematological Disorders - thalassemia Denies: Hx Diabetes Cardiovascular History: Reports: Hx Angina, Hx Hypercholesterolemia, Hx Hypertension Denies: Hx Coronary Artery Disease, Hx Myocardial Infarction, Hx Pacemaker/ ICD, Hx Valvular Heart Disease Respiratory History: Reports: Hx Asthma History: Denies: Hx Renal Disease Sensory History: Reports: Hx Contacts or Glasses Denies: Hx Hearing Aid Opthamlomology History: Reports: Hx Contacts or Glasses Psychiatric History: Denies: Hx Panic Disorder - Surgical History Surgery Procedure, Year, and Place: Infectious Disease History: No Infectious Disease History: Denies: Hx Clostridium Difficile, Hx Hepatitis, Hx Human Immunodeficiency Virus (HIV), Hx of Known/Suspected MRSA, Hx Shingles, Hx Tuberculosis, Traveled Outside the [place] in Last 30 Days - Family History Known Family History: Positive: Cardiac Disease - Social History Alcohol Use: None Substance Use Type: Reports: None Smoking Status (MU): Never Smoked Tobacco Review of Systems Negative: Fever Negative: Chest Pain Negative: Shortness Of Breath Positive: Myalgia - back pain All Other Systems Reviewed And Are Negative: Yes Physical Exam Triage Information Reviewed: Yes Vital Signs On Initial Exam: Initial Vitals Temp Pulse Resp BP Pulse Ox 96.6 F 102 16 131/71 95 04/17/18 14:52 04/17/18 14:52 04/17/18 14:52 04/17/18 14:52 04/17/18 14:52 Vital Signs Reviewed: Yes Appearance: Positive: Well-Appearing Skin: Positive: Warm, Dry Head/Face: Positive: Normal Head/Face Inspection Eyes: Positive: Normal, Conjunctiva Clear Respiratory/Lung Sounds: Positive: Clear to Auscultation, Breath Sounds Present Cardiovascular: Positive: Normal, RRR Musculoskeletal: Positive: Limited @ - back, Other - pos SLR left, good pulse, sensation grossly intact, good strength lower extermities Neurological: Positive: Normal, Reflexes Intact - patlla. Negative: Babinski Bilateral - neg Psychiatric: Positive: Normal Diagnostics - Vital Signs Vital Signs Temp Pulse Resp BP Pulse Ox 04/17/18 14:52 96.6 F 102 16 131/71 95 - Laboratory Lab Statement: Any lab studies that have been ordered have been reviewed, and results considered in the medical decision making process. Back Pain Course/Dx - Course Course Of Treatment: 63F presents with back pain for 2 days. She states she has history of back pain similar location. She has been taking naproxen with limited relief. She denies any new injury. She denies any saddle anesthesia or loss of bowel or bladder. She has pain occasionally goes down to left leg. She denies any weakness. She still able to ambulate. She denies any fevers. She denies any history of IV drug use. She denies any urinary symptoms. Pain is worse with movement. She has been placing heat on the area. She has not followed up with her primary about such. on exam has tendereness sides of lower back. neurovascular intact. will treat with flexeril and medrol. patient understand and agrees with plan. - Diagnoses Differential Diagnosis/HQI/PQRI: Positive: Herniated Disc, Strain, Sprain Provider Diagnoses: Back pain Discharge - Sign-Out/Discharge Documenting (check all that apply): Discharge/Admit/Transfer - Discharge Plan Condition: Good Disposition: HOME Prescriptions: Cyclobenzaprine TAB* [Flexeril 10 MG TAB*] 10 mg PO TID PRN #15 tab PRN Reason: Pain methylPREDNISolone [Medrol Dosepak 4 MG*] 4 mg PO .SEE ALTAGRACIA INSTRUCTION #1 packet Patient Education Materials: Back Pain (ED) Referrals: Brendan Yin MD [Primary Care Provider] - Additional Instructions: Follow directions on package for Medrol pack Take muscle relaxers three times a day Use ibuprofen or Tylenol for pain every 6 hours ice/heat area, move as much as possible Follow up with primary within 5 days Return to ED if develop any new or worsening symptoms - Billing Disposition and Condition Condition: GOOD Disposition: HOME
[2018-04-17 18:34] VITALS: BP 138/96
== END 2018-04-17 18:34 | disposition home or self-care (01) ==
LOC: ED 14:46
DX: M54.9 Dorsalgia, unspecified (principal); Z88.5 Allergy status to narcotic agent; Z88.8 Allergy status to other drugs, medicaments and biological substances
CPT/HCPCS: 96372; 99282; A9270-GY; J1885

== ENCOUNTER → 2019-05-13 00:40 | Emergency (ER) | payer MEDICARE, MEDICAID ==
[~2019-05-13 00:40] MED LIST: Albuterol/Ipratropium NEB.SOL* Albuterol 2.5 MG/Ipratropium 0.5 MG 3 ML INH ONE; predniSONE TAB* 20 MG PO ONE
--- NOTE | 2019-05-13 01:26 | ED ---
Shortness of Breath - HPI Summary HPI Summary: The patient is a 64 year old F presenting to [facility] with a chief complaint of SOB. She states that she feels like something is caught and she is unable to clear her throat. The episode started occurring 2-3 hours [employer] and took her last nebulizer at 1600. She denies any chest pain and fever. She has a Hx of asthma and uses a nebulizer 3 times a day at home and has a prescription for an albuterol inhaler. Her symptoms are alleviated by her nebulizer and albuterol inhaler and aggravated seasonal allergies. She denies any form of smoking. - History of Current Complaint Chief Complaint: EDShortnessOfBreath Time Seen by Provider: 05/13/19 00:57 Hx Obtained From: Patient Onset/Duration: Sudden Onset - 2-3 hours [employer], Still Present Timing: Constant Current Severity: Moderate Dyspnea At: Exertion Aggravating Factors: Allergens Alleviating Factors: Other - Nebulizer treatments and albuterol inhaler Associated Signs & Symptoms: Negative - Chest pain and fever - Allergy/Home Medications Allergies/Adverse Reactions: Allergies Allergy/AdvReac Type Severity Reaction Status Date / Time acetaminophen Allergy Itching Verified 05/13/19 00:43 [From Darvocet-N] latex Allergy Rash Verified 05/13/19 00:43 pregabalin [From Lyrica] Allergy See Comment Verified 05/13/19 00:43 propoxyphene Allergy Itching Verified 05/13/19 00:43 [From Darvocet-N] PMH/Surg Hx/FS Hx/Imm Hx Previously Healthy: No Endocrine/Hematology History: Reports: Hx Thyroid Disease, Other Endocrine/ Hematological Disorders - thalassemia Denies: Hx Diabetes Cardiovascular History: Reports: Hx Angina, Hx Hypercholesterolemia, Hx Hypertension Denies: Hx Coronary Artery Disease, Hx Myocardial Infarction, Hx Pacemaker/ ICD, Hx Valvular Heart Disease Respiratory History: Reports: Hx Asthma History: Denies: Hx Renal Disease Sensory History: Reports: Hx Contacts or Glasses Denies: Hx Hearing Aid Opthamlomology History: Reports: Hx Contacts or Glasses Psychiatric History: Denies: Hx Panic Disorder - Surgical History Surgery Procedure, Year, and Place: Infectious Disease History: No Infectious Disease History: Denies: Hx Clostridium Difficile, Hx Hepatitis, Hx Human Immunodeficiency Virus (HIV), Hx of Known/Suspected MRSA, Hx Shingles, Hx Tuberculosis, Traveled Outside the [place] in Last 30 Days - Family History Known Family History: Positive: Cardiac Disease - Social History Alcohol Use: None Hx Substance Use: No Substance Use Type: Reports: None Hx Tobacco Use: No Smoking Status (MU): Never Smoked Tobacco Review of Systems Negative: Fever Negative: Chest Pain Positive: Shortness Of Breath, Other - POSITIVE: wheezing All Other Systems Reviewed And Are Negative: Yes Physical Exam - Summary Physical Exam Summary: VITAL SIGNS: Reviewed. GENERAL: Patient is a well-developed and morbidly obese female who is lying comfortable in the stretcher. Patient is not in any acute respiratory distress. HEAD AND FACE: No signs of trauma. No ecchymosis, hematomas or skull depressions. No sinus tenderness. EYES: PERRLA, EOMI x 2, No injected conjunctiva, no nystagmus. EARS: Hearing grossly intact. Ear canals and tympanic membranes are within normal limits. MOUTH: Oropharynx within normal limits. NECK: Supple, trachea is midline, no adenopathy, no JVD, no carotid bruit, no c- spine tenderness, neck with full ROM CHEST: Symmetric, no tenderness at palpation LUNGS: decreased breath sounds bilaterally. No wheezing or crackles. CVS: Regular rate and rhythm, S1 and S2 present, no murmurs or gallops appreciated. ABDOMEN: Soft, non-tender. No signs of distention. No rebound no guarding, and no masses palpated. Bowel sounds are normal. EXTREMITIES: FROM in all major joints, no edema, no cyanosis or clubbing. NEURO: Alert and oriented x 3. No acute neurological deficits. Speech is normal and follows commands. SKIN: Dry and warm Triage Information Reviewed: Yes Vital Signs On Initial Exam: Initial Vitals Temp Pulse Resp BP Pulse Ox 97.2 F 75 18 123/85 95 05/13/19 00:42 05/13/19 00:42 05/13/19 00:42 05/13/19 00:42 05/13/19 00:42 Vital Signs Reviewed: Yes Diagnostics - Vital Signs Vital Signs Temp Pulse Resp BP Pulse Ox 05/13/19 00:42 97.2 F 75 18 123/85 95 - Laboratory Lab Statement: Any lab studies that have been ordered have been reviewed, and results considered in the medical decision making process. Re-Evaluation - Re-Evaluation First Eval Re-Evaluation Time: 02:06 Change: Improved Comment: Pt is feeling better after her asthma treatment and will be discharge home with a Dx of asthma exacerbation. Course/Dx - Course Course Of Treatment: The patient is a 64 year old F presenting to [facility] with a chief complaint of SOB. She states that she feels like something is caught and she is unable to clear her throat. The episode started occurring 2-3 hours [employer] and took her last nebulizer at 1600. Upon PE she is morbidly obese and has decreased breath sounds bilaterally. During her ED course she was given Predisone 60 mg PO and albuterol 2.5 mg INH Q 20 minutes. Upon re-eval the pt has improved breath sounds and her lungs are clear to auscultation. She has an asthma appointment on Friday05/14/19 and will be discharge home with a Dx of asthma exacerbation. She has enough albuterol nebulizer and inhaler medications until Friday. - Diagnoses Provider Diagnoses: Asthma exacerbation Discharge - Sign-Out/Discharge Documenting (check all that apply): Patient Departure - discharge Patient Received Moderate/Deep Sedation with Procedure: No - Discharge Plan Condition: Stable Disposition: HOME Patient Education Materials: Asthma (ED) Referrals: Brendan Yin MD [Primary Care Provider] - 2 Days Additional Instructions: Please follow up with your primary care physician in 2-3 days and return to the emergency department for any new or worsening symptoms. - Attestation Statements Document Initiated by Scribe: Yes Documenting Scribe: Stephan Marques Provider For Whom Scribe is Documenting (Include Credential): Chey Garcia MD Scribe Attestation: Stephan Pittman, scribed for Chey Garcia MD on 05/13/19 at 0202. Status of Scribe Document: Ready
[2019-05-13] MEDS: Albuterol 2.5 MG/3 ML NEB.SOL* (0.083%) INH SCH ×2 (01:45→02:13)
[2019-05-13 02:25] VITALS: BP 130/76
== END | disposition home or self-care (01) ==
LOC: ED 00:40
DX: J45.901 Unspecified asthma with (acute) exacerbation (principal); Z88.8 Allergy status to other drugs, medicaments and biological substances; Z88.6 Allergy status to analgesic agent; Z91.040 Latex allergy status
CPT/HCPCS: 99282; A9270-GY; J7512

== ENCOUNTER 2019-08-30 12:34 | Emergency (ER) | payer MEDICARE, MEDICAID ==
--- OUTSIDE RECORDS SUMMARY | 2019-08-30 12:49 | XMS REPORT | Continuity of Care Document ---
:1955 External Reference #:[id number] Author Name MARA Chavez (transmitted by agent of provider Gaby Arciniega) Address [address] [place] [address] Care Team Providers Name Role Phone Brendan Yin MD - Internal Care Team Information Resident Assistant [phone] Medicine Problems Active Problems Provider Date Essential hypertension Caleb Dorsey MD Onset: 05/14/2019 Pure hypercholesterolemia Caleb Dorsey MD Onset: 05/14/2019 Allergy to other foods Rosanne Ruiz NP Onset: 06/25/2019 Uncomplicated severe persistent asthma BIBI Desai Onset: 06/16/2019 Exacerbation of moderate persistent Caleb Dorsey MD Onset: 2018 asthma Allergic rhinitis Caleb Dorsey MD Onset: 05/14/2019 Allergic rhinitis due to pollen Caleb Dorsey MD Onset: 05/14/2019 Social History Type Date Description Comments Sex Unknown Tobacco Use Start: Unknown Never Smoked Cigarettes Smoking Status Reviewed: 06/16/19 Never Smoked Cigarettes ETOH Use Denies alcohol use Tobacco Use Start: Unknown Patient has never smoked Allergies, Adverse Reactions, Alerts Active Allergies Reaction Severity Comments Date Lyrica Dizziness 05/14/2019 Latex blisters 05/14/2019 Medications Active Medications SIG Qnty Indications Ordering Provider Date Albuterol Sulfate inhale 2 puffs 42.5units Caleb Quintanilla 05/17/2019 HFA by mouth every 4 MD Willian 108(90Base) hours as needed mcg/Act Aerosol Flonase Allergy 2 puffs each 9.900ml J30.1 Caleb Quintanilla 05/14/2019 Relief nostril every MD Willian 50mcg/Act day Suspension Xyzal 1 tab by mouth 30tabs J30.1 maty Quintanilla 05/14/2019 5mg Tablets every day as MD Willian needed Breo Ellipta inhale one puff 60units J30.1 maty Grubbs. 05/14/2019 once a day MD Willian 200-25mcg/Inh Aerosol Proair HFA 2 puffs every 4 8.500gm J30.1 Caleb Grubbs. 05/14/2019 as needed MD Willian 108(90Base) mcg/Act Aerosol Albuterol Sulfate Use 1 Vial In Unknown Nebulizer Three (2.5mg/3ML) 0.083% Times Daily Nebulizer Freestyle Lancets Use 1 To Check Unknown Glucose Twice Misc Daily as Directed Freestyle Lite Test Use 1 Strip To Unknown Check Glucose Strips Twice Daily For 90 Days Atenolol Annamaria, 50mg Tablets Brendan Dumas MD Simvastatin Unknown 40mg Tablets Metformin HCL Annamaria, 500mg Brendan Dumas MD Tablets Lisinopril-Hydrochlo Unknown rothiazide 20-25mg Tablets Levothyroxine Sodium Annamaria, Brendan Dumas MD 100mcg Tablets History Medications Prednisone take one tablet 10tabs Rosanne Ruiz NP 06/25/2019 - 20mg Tablets twice daily x 5 07/07/2019 days Medications Administered in Office Medication SIG Qnty Indications Ordering Provider Date Injection, Benralizumab, 1 Caleb Dorsey MD 06/30/2019 MG Injection Injection, Benralizumab, 1 Injection 1 06/30/2019 MG Injection Therapeutic, Prophylactic Or Caleb Dorsey MD 06/30/2019 Diagnostic Injection Subq/Im Injection Therapeutic, Prophylactic Or Injection 1 06/30/2019 Diagnostic Injection Subq/Im Injection Immunizations Description No Information Available Vital Signs Date Vital Result Comment 07/07/2019 10:26am BP Systolic 129 mmHg BP Diastolic 76 mmHg Height 68 inches 5'8" Weight 288.00 lb BMI (Body Mass Index) 43.8 kg/m2 Heart Rate 96 /min Respiratory Rate 16 /min O2 % BldC Oximetry 98 % 06/25/2019 10:52am BP Systolic 132 mmHg BP Diastolic 84 mmHg Height 68 inches 5'8" Weight 298.00 lb BMI (Body Mass Index) 45.3 kg/m2 Heart Rate 84 /min Respiratory Rate 20 /min O2 % BldC Oximetry 96 % Results Test Date Facility Test Result H/L Range Note Order 06/18/2019 [facility] Skin Test Seasonal and <pending> Environmental Order 05/14/2019 [facility] Inhaler <pending> Training-Patient Demonstrates Competency Procedures Date Code Description Status 06/30/2019 72283 Therapeutic, Prophylactic Or Diagnostic Injection Subq/Im Completed 06/30/2019 77320 Therapeutic, Prophylactic Or Diagnostic Injection Subq/Im Completed 06/18/2019 59880 Allergy Tests Percutaneous W/ Allergenic Extracts Completed 06/18/2019 21254 Allergy Tests Percutaneous W/ Allergenic Extracts Completed 06/16/2019 80552 Bronchodilation Responsiveness Spirometry Pre/Post Completed Bronchodil Adm 05/14/2019 48215 Nitric Oxide Gas Determination Completed 05/14/2019 81921 Demonstration/Eval,Of Patient Utilization Of Completed Aerosol,Nebulizer 05/14/2019 80484 Bronchodilation Responsiveness Spirometry Pre/Post Completed Bronchodil Adm Medical Devices Description No Information Available Encounters Type Date Location Provider Dx Diagnosis Office Visit 06/25/2019 Nikunj Ruiz NP J30.9 Allergic rhinitis, 11:30a unspecified J45.50 Severe persistent asthma, uncomplicated Z91.018 Allergy to other foods Office Visit 06/16/2019 1:30p Nikunj Mcghee J45.50 Severe persistent Fenstermacher, RPA-C asthma, uncomplicated J30.1 Allergic rhinitis due to pollen J30.89 Other allergic rhinitis Office Visit 05/14/2019 1:30p Nikunj Dorsey J30.1 Allergic rhinitis MD due to pollen J30.89 Other allergic rhinitis J45.41 Moderate persistent asthma with (acute) exacerbation Assessments Date Code Description Provider 06/30/2019 J45.50 Severe persistent asthma, Caleb Dorsey MD uncomplicated 06/30/2019 J45.50 Severe persistent asthma, Injection 1 uncomplicated 06/25/2019 J30.9 Allergic rhinitis, unspecified Caleb Dorsey MD 06/25/2019 J30.9 Allergic rhinitis, unspecified Rosanne Ruiz LUZ MARIA 06/25/2019 J45.50 Severe persistent asthma, Caleb Dorsey MD uncomplicated 06/25/2019 J45.50 Severe persistent asthma, Rosanne Ruiz, LUZ MARIA uncomplicated 06/25/2019 Z91.018 Allergy to other foods Caleb Dorsey MD 06/25/2019 Z91.018 Allergy to other foods Rosanne Ruiz, LUZ MARIA 06/18/2019 J30.9 Allergic rhinitis, unspecified Rosanne Ruiz, LUZ MARIA 06/18/2019 J30.1 Allergic rhinitis due to pollen Caleb Dorsey MD 06/18/2019 J30.89 Other allergic rhinitis Caleb Dorsey MD 06/16/2019 J45.50 Severe persistent asthma, Nemo Olson, RPA-C uncomplicated 06/16/2019 J30.1 Allergic rhinitis due to pollen Nemo Olson, RPA -C 06/16/2019 J30.89 Other allergic rhinitis Nemo Olson, RPA-C 05/14/2019 J30.1 Allergic rhinitis due to pollen Caleb Dorsey MD 05/14/2019 J30.89 Other allergic rhinitis Caleb Dorsey MD 05/14/2019 J45.41 Moderate persistent asthma with Caleb Dorsey MD (acute) exacerbation Plan of Treatment Future Appointment(s):08/04/2019 8:30 am - MARA Chavez at [place] Functional Status Description No Information Available Mental Status Description No Information Available Referrals Description No Information Available
--- OUTSIDE RECORDS SUMMARY | 2019-08-30 12:49 | XMS REPORT | Continuity of Care Document ---
:1955 External Reference #:[id number] Author Name MARA Chavez (transmitted by agent of provider Caleb Dorsey) Address [address] [place] [address] Care Team Providers Name Role Phone Brendan Yin MD - Internal Care Team Information Care Process Manager Medicine Problems Active Problems Provider Date Essential [...] Unknown Never Smoked Cigarettes Smoking Status Reviewed: 07/07/19 Never Smoked Cigarettes ETOH Use Denies alcohol [...] 1 tab by mouth 30tabs J30.1 maty Grubbs. 05/14/2019 5mg Tablets every day as MD [...] Facility Test Result H/L Range Note Order 07/07/2019 [facility] Skin Test Food <pending > Order 06/18/2019 [facility] Skin Test Seasonal and <pending> Environmental Order 05/14/2019 [facility] Inhaler <pending> Training-Patient Demonstrates Competency Procedures Date Code Description Status 07/07/2019 90301 Allergy Tests Percutaneous W/ Allergenic Extracts Completed 07/07/2019 85696 Allergy Tests Percutaneous W/ Allergenic Extracts Completed 06/30/2019 27797 Therapeutic, Prophylactic Or Diagnostic Injection Subq/Im Completed 06/30/2019 74168 Therapeutic, Prophylactic Or Diagnostic Injection Subq/Im Completed 06/18/2019 96387 Allergy Tests Percutaneous W/ Allergenic Extracts Completed 06/18/2019 79529 Allergy Tests Percutaneous W/ Allergenic Extracts Completed 06/16/2019 78093 Bronchodilation Responsiveness Spirometry Pre/Post Completed Bronchodil Adm 05/14/2019 30446 Nitric Oxide Gas Determination Completed 05/14/2019 00750 Demonstration/Eval,Of Patient Utilization Of Completed Aerosol,Nebulizer 05/14/2019 07634 Bronchodilation Responsiveness Spirometry Pre/Post Completed Bronchodil Adm Medical Devices Description No Information Available Encounters Type Date Location Provider Dx Diagnosis Office Visit 07/07/2019 MARA Rios J45.50 Severe persistent asthma, 11:00a uncomplicated J30.9 Allergic rhinitis, unspecified Z91.018 Allergy to other foods J30.1 Allergic rhinitis due to pollen Office Visit 06/25/2019 11:30a Nikunj Ruiz NP J30.9 Allergic rhinitis, unspecified J45.50 Severe persistent asthma, uncomplicated Z91.018 Allergy to other foods Office Visit 06/16/2019 1:30p Nikunj Mc45.50 Severe persistent Fenstermacher, RPA-C asthma, uncomplicated J30.1 Allergic rhinitis due to pollen J30.89 Other allergic rhinitis Office Visit 05/14/2019 1:30p Jesusita Ring30.1 Allergic rhinitis MD due to pollen J30.89 Other allergic rhinitis J45.41 Moderate persistent asthma with (acute) exacerbation Assessments Date Code Description Provider 07/07/2019 J45.50 Severe persistent asthma, MARA hCavez uncomplicated 07/07/2019 J30.9 Allergic rhinitis, unspecified MARA Chavez 07/07/2019 Z91.018 Allergy to other foods MARA Chavez 07/07/2019 J30.1 Allergic rhinitis due to pollen MARA Chavez 07/07/2019 L50.0 Allergic urticaria Caleb Dorsey MD 06/30/2019 J45.50 Severe persistent asthma, Caleb Dorsey MD uncomplicated 06/30/2019 J45.50 Severe persistent asthma, Injection 1 uncomplicated 06/25/2019 J30.9 Allergic rhinitis, unspecified Caleb Dorsey MD 06/25/2019 J30.9 Allergic rhinitis, unspecified Rosanne Ruiz, ARMHOLE FELLER HANDSTITCHING MACHINE 06/25/2019 J45.50 Severe persistent asthma, Caleb Dorsey MD uncomplicated 06/25/2019 J45.50 Severe persistent asthma, Rosanne Ruiz, ARMHOLE FELL[employer]STITCHING MACHINE uncomplicated 06/25/2019 Z91.018 Allergy to other foods Caleb Dorsey MD 06/25/2019 Z91.018 Allergy to other foods Rosanne Ruiz, ARMHOLE FELLER HANDSTITCHING MACHINE 06/18/2019 J30.9 Allergic rhinitis, unspecified Rosanne Ruiz, ARMHOLE FELLER HANDSTITCHING MACHINE 06/18/2019 J30.1 Allergic rhinitis due to pollen Caleb Dorsey MD 06/18/2019 J30.89 Other allergic rhinitis Caleb Dorsey MD 06/16/2019 J45.50 Severe persistent asthma, Nemo Olson RPA-C uncomplicated 06/16/2019 J30.1 Allergic rhinitis due to pollen Nemo Olson RPA -C 06/16/2019 J30.89 Other allergic rhinitis Nemo Olson RPA-C 05/14/2019 J30.1 Allergic rhinitis due to pollen Caleb Dorsey MD 05/14/2019 J30.89 Other allergic rhinitis Caleb Dorsey MD 05/14/2019 J45.41 Moderate persistent asthma with Caleb Dorsey MD (acute) exacerbation Plan of Treatment Future Appointment(s):07/14/2019 9:10 am - Injection 1 at [id number]/04/2019 8: 30 am - MARA Chavez at [id number]/07/2019 - MARA ChavezJ45.50 Severe persistent asthma, uncomplicatedComments:Patient's skin test for foods today tested negative. Patient's environmental skin test showed 2+ positive to trees , weeds, cat, dog, rabbit, mixed feathers and mouse. Environmental skin test showed 3+ positive to molds. Patient's CBC showed 140 absolute eosinophil count. Patient's total IgE is 4.95 kU/l. Patient to continue Breo for prophylaxis of her lungs and pro-air for breakthrough chest symptoms. Patient to use nebulizer every 4 hours as needed. Patient to continue Flonase for prophylaxis of her nose and Xyzal for breakthrough nasal symptoms. Saline nasal rinse and HEPA air filter may help decrease allergens. Patient to continue receiving injections of benralizumab.J30.9 Allergic rhinitis, mantqwqwnrnZ97.018 Allergy to other xypxbW63.1 Allergic rhinitis due to pollen Functional Status Description No Information Available Mental Status Description No Information Available Referrals Description No Information Available
[2019-08-30 14:21] VITALS: BP 154/89
[2019-08-30] MEDS ORDERED: methylPREDNISolone 125 MG* 2 ML VIAL IV ONE (14:27)
[2019-08-30] MEDS ORDERED: Albuterol/Ipratropium NEB.SOL* Albuterol 2.5 MG/Ipratropium 0.5 MG 3 ML INH ONE (14:27)
--- NOTE | 2019-08-30 14:28 | ED ---
Asthma - HPI Summary HPI Summary: This patient is a 64 year old female presenting to [facility] with a chief complaint of asthma exacerbation since a couple hours ago. She reports SOB and cough. She states this is a typical asthma attack and that her SOB increases upon exertion. She states her cough is a dry cough. - History of Current Complaint Chief Complaint: EDAsthma Stated Complaint: SOB PER PATIENT Time Seen by Provider: 08/30/19 14:20 Hx Obtained From: Patient Onset/Duration: Lasting Hours Pain Intensity: 3 Pain Scale Used: 0-10 Numeric Location/Character: Cough (Nonproductive) - Allergy/Home Medications Allergies/Adverse Reactions: Allergies Allergy/AdvReac Type Severity Reaction Status Date / Time acetaminophen Allergy Itching Verified 08/30/19 12:41 [From Darvocet-N] latex Allergy Rash Verified 08/30/19 12:41 pregabalin [From Lyrica] Allergy See Comment Verified 08/30/19 12:41 propoxyphene Allergy Itching Verified 08/30/19 12:41 [From Darvocet-N] PMH/Surg Hx/FS Hx/Imm Hx Endocrine/Hematology History: Reports: Hx Thyroid Disease, Other Endocrine/ Hematological Disorders - thalassemia Denies: Hx Diabetes Cardiovascular History: Reports: Hx Angina, Hx Hypercholesterolemia, Hx Hypertension Denies: Hx Coronary Artery Disease, Hx Myocardial Infarction, Hx Pacemaker/ ICD, Hx Valvular Heart Disease Respiratory History: Reports: Hx Asthma History: Denies: Hx Renal Disease Sensory History: Reports: Hx Contacts or Glasses Denies: Hx Hearing Aid Opthamlomology History: Reports: Hx Contacts or Glasses Psychiatric History: Denies: Hx Panic Disorder - Surgical History Surgery Procedure, Year, and Place: Infectious Disease History: No Infectious Disease History: Denies: Hx Clostridium Difficile, Hx Hepatitis, Hx Human Immunodeficiency Virus (HIV), Hx of Known/Suspected MRSA, Hx Shingles, Hx Tuberculosis, Traveled Outside the [place] in Last 30 Days - Family History Known Family History: Positive: Cardiac Disease - Social History Alcohol Use: None Hx Substance Use: No Substance Use Type: Reports: None Hx Tobacco Use: No Smoking Status (MU): Never Smoked Tobacco Review of Systems All Other Systems Reviewed And Are Negative: Yes Physical Exam - Summary Physical Exam Summary: VITAL SIGNS: Reviewed. GENERAL: Patient is a well-developed and nourished FEMALE who is lying comfortable in the stretcher. Patient is not in any acute respiratory distress. HEAD AND FACE: No signs of trauma. No ecchymosis, hematomas or skull depressions. No sinus tenderness. EYES: PERRLA, EOMI x 2, No injected conjunctiva, no nystagmus. EARS: Hearing grossly intact. Ear canals and tympanic membranes are within normal limits. MOUTH: Oropharynx within normal limits. NECK: Supple, trachea is midline, no adenopathy, no JVD, no carotid bruit, no c- spine tenderness, neck with full ROM. CHEST: Symmetric, no tenderness at palpation. LUNGS: Clear to auscultation bilaterally. Mild wheezing. No crackles. CVS: Regular rate and rhythm, S1 and S2 present, no murmurs or gallops appreciated. ABDOMEN: Soft, non-tender. No signs of distention. No rebound, no guarding, and no masses palpated. Bowel sounds are normal. EXTREMITIES: FROM in all major joints, no edema, no cyanosis or clubbing. NEURO: Alert and oriented x 3. No acute neurological deficits. Speech is normal and follows commands. SKIN: Dry and warm. Triage Information Reviewed: Yes Vital Signs On Initial Exam: Initial Vitals Temp Pulse Resp BP Pulse Ox 97.3 F 77 18 160/99 96 08/30/19 12:39 08/30/19 12:39 08/30/19 12:39 08/30/19 12:39 08/30/19 12:39 Vital Signs Reviewed: Yes Diagnostics - Vital Signs Vital Signs Temp Pulse Resp BP Pulse Ox 08/30/19 14:16 62 17 154/89 97 08/30/19 14:15 13 08/30/19 12:39 97.3 F 77 18 160/99 96 - Laboratory Result Diagrams: 08/30/19 14:52 08/30/19 14:52 Lab Statement: Any lab studies that have been ordered have been reviewed, and results considered in the medical decision making process. - Radiology CXR Radiology Interpretation Completed By: Radiologist Summary of Radiographic Findings: Low lung volumes, small right basilar infiltrate suggestive of atelectasis. ED Provider has reviewed this report. - EKG 1444 Cardiac Rate: NL EKG Rhythm: Sinus Rhythm - 62 BPM Summary of EKG Findings: No STEMI. Q-wave in III. ED Physician has reviewed and interpreted this report. Asthma Course/Dx - Course Assessment/Plan: This patient is a 64 year old female presenting to [facility] with a chief complaint of asthma exacerbation since a couple hours ago. She reports SOB and cough. She states this is a typical asthma attack and that her SOB increases upon exertion. She states her cough is a dry cough. Blood work without any significant abnormality except for creatinine 1.03, glucose 102, AST 48 and BNP 164. In the ED course the patient was given DuoNebs and Solu- Medrol and all her symptoms subside. I discussed all the findings and test results with the patient. Patient was instructed to return to the emergency room immediately if any of the symptoms return or worsen . Plan of care was discussed with the patient and understands and agrees. All questions were answered at patient satisfaction. There were no further complaints or concerns. Lung exam before discharge: CTA B/L. Good air exchange. No wheezing or crackles heard. CVS: S1 and S2 present. No murmurs appreciated. Patient is alert and oriented x 3. Patient is hemodynamically stable. Patient will be discharged home with follow up nursing tech in the next 2-3 days - Diagnoses Provider Diagnoses: Asthma exacerbation Discharge ED - Sign-Out/Discharge Documenting (check all that apply): Patient Departure - Discharge Patient Received Moderate/Deep Sedation with Procedure: No - Discharge Plan Condition: Stable Disposition: HOME Patient Education Materials: Asthma (ED) Referrals: Brendan Yin MD [Primary Care Provider] - Additional Instructions: Return to ED with new or worsening symptoms. - Billing Disposition and Condition Condition: STABLE Disposition: Home - Attestation Statements Document Initiated by Amandeep: Yes Documenting Scribe: Triston Allen Provider For Whom Amandeep is Documenting (Include Credential): Darrick Sanchez MD Scribe Attestation: Triston Pittman, scribed for Darrick Sanchez MD on 08/30/19 at 215. Scribe Documentation Reviewed: Yes Provider Attestation: The documentation as recorded by the Triston molina accurately reflects the service I personally performed and the decisions made by me, Darrick aSnchez MD Status of Scribe Document: Viewed
[2019-08-30 15:12] LABS: ABS Lymphocytes 1.7 10^3/ul (1.0-4.8); ABS Monocytes 0.5 10^3/ul (0-0.8); ABS Neutrophils 6.9 10^3/ul (1.5-7.7); Hematocrit 40 % (35-47); Hemoglobin 13.3 g/dL (12.0-16.0); Lymphocyte % 19.1 %; Mean Corpuscular HGB Conc 34 g/dL (31-36); Mean Corpuscular Hemoglobin 28 pg (27-31); Mean Corpuscular Volume 82 fL (80-97); Mean Platelet Volume 8.3 fL (7.4-10.4); Nucleated Red Blood Cells % 0.1; Platelet Count 254 10^3/uL (150-450); Red Blood Count 4.86 10^6 /uL (3.70-4.87); Red Cell Distribution Width 15 % (10-15); White Blood Count 9.1 10^3/uL (3.5-10.8)
[2019-08-30 15:36] LABS: Albumin 3.8 g/dL (3.2-5.2); Albumin/Globulin Ratio 1.5 (1-3); BUN/Creatinine Ratio 15.5 (8-20); C Reactive Protein 5.64 mg/L (<8.01); Calcium 9.3 mg/dL (8.6-10.3); EGFR African American 65.3 (>60); EGFR Non-African American 53.9 (>60); Globulin 2.6 g/dL (2-4); Potassium 4.3 mmol/L (3.5-5.0); Total Bilirubin 0.5 mg/dL (0.2-1.0); Total Protein 6.4 g/dL (6.4-8.9)
== END 2019-08-30 15:50 | disposition home or self-care (01) ==
LOC: ED 12:34
DX: J45.901 Unspecified asthma with (acute) exacerbation (principal); R05 Cough; I10 Essential (primary) hypertension; Z88.8 Allergy status to other drugs, medicaments and biological substances; Z88.6 Allergy status to analgesic agent; Z91.040 Latex allergy status
CPT/HCPCS: 36415; 71046; 80053; 82375; 83605; 83880; 84484; 85025; 86140; 93005; 96374; 99282; J2930